=== PATIENT | male | born 1940 | race Caucasian/White ===

== ENCOUNTER 2018-08-15 16:44 | Emergency (ER) | payer OTHER ==
[2018-08-15] MEDS ORDERED: ONDANSETRON 4 MG/2 ML VIAL IVP ONE (17:06)
[2018-08-15] MEDS ORDERED: FAMOTIDINE 20 MG/NACL 50 ML IV ONE (17:06)
[2018-08-15] MEDS ORDERED: NS 1,000 ML IV ONE (17:06)
[2018-08-15] MEDS ORDERED: FAMOTIDINE 20 MG/2 ML SDV ONE (17:15)
--- NOTE | 2018-08-15 17:50 | EDPHY ---
H & P Time Seen by Provider: 08/15/18 17:06 HPI/ROS: HPI Lower abdominal pain, vomiting. 77-year-old male by private vehicle with daughter and his . The patient reports that since 11:00 a.m. He has had lower abdominal pain which she describes as greater on the right side, cramping and aching. He has had 2 episodes of nonbilious, nonbloody vomiting. He reports having a normal bowel movement earlier this morning. No bloody or melenic stool. No diarrhea. Last meal was earlier this morning at approximately 8:00 a.m.. No prior abdominal surgical history. He does have a history of coronary artery disease. He is also complaining of feeling very fatigued and drained. ROS: Constitutional: No fever, no chills. No weakness. Eyes: No discharge. No changes in vision. ENT: No sore throat. No nasal congestion or rhinorrhea. Respiratory: No cough. No shortness of breath. Cardiac: No chest pain, no palpitations. Gastrointestinal: As above, no diarrhea. Genitourinary: No hematuria. No dysuria or increased frequency with urination. Musculoskeletal: No back pain. No neck pain. No myalgias or arthralgias. Skin: No rashes. Neurological: No headache. No focal weakness or altered sensation. Past medical history: Type 2 diabetes, CABG, gout. Social history: Nonsmoker. Here with his and daughter. No alcohol. Physical Exam: General Appearance: Alert, he is not distressed. This patient is responding to questions appropriately and in full sentences. This patient appears well- hydrated and well-nourished. Eyes: Pupils equal and round no pallor or injection. No lid edema, erythema or injection. Respiratory: There are no retractions, lungs are clear to auscultation with good air movement bilaterally. Cardiovascular: Regular rate and rhythm. No murmur. Gastrointestinal: Abdomen is soft with mild to moderate right lower quadrant tenderness on palpation, no masses or hernias appreciated, bowel sounds normal. No focal tenderness at McBurney's point. No Vega sign. Neurological: Motor sensory function is grossly intact. Cranial nerves are normal. Gait is normal. Skin: Warm and dry, no rashes. Musculoskeletal: Neck is supple and nontender. Extremities are symmetrical. All joints range without pain or impingement. Psychiatric: No agitation. No depression. Database: EKG: EKG time is 5:50 p.m.; EKG shows a narrow complex normal sinus rhythm with a ventricular rate of 94. Borderline T-wave abnormalities in the anterior leads. Subtle ST depressions noted in V3 V4 and V5. The UT, QRS, QT intervals are within normal limits. There are no ST-T wave changes indicative of ischemic or injury pattern. No evidence of right heart strain. Interpreted by me. Imaging: CT abdomen and pelvis with IV contrast: The appendix is well visualized and is normal. The liver is unremarkable. The gallbladder appears normal. Unremarkable study. Results were discussed with staff radiologist Dr. Kraig Wallace. Right upper quadrant ultrasound: Gallstones and some sludge present but no evidence of wall thickening, inflammatory changes involving the gallbladder. No associated free fluid. Common bile duct within normal limits. Negative sonographic Vega's. Otherwise an unremarkable study. Results were discussed with staff radiologist. Procedures: Emergency department course: Triage vital signs reviewed. He is mildly hypertensive. Borderline tachycardic. Vital signs are otherwise normal. He is afebrile. IV was placed. He was started on IV normal saline with 1 L to be given over the next hour. He was initially given 4 mg of IV Zofran and 20 mg of IV Pepcid. He declines pain medication currently. His exam is concerning for possible appendicitis. He consents to CT imaging. 6:30 p.m., the patient was re-evaluated, he is currently resting comfortably. Results of his emergency department workup discussed with him. He will be sent for CT imaging shortly. 7:00 p.m., patient re-evaluated, he is comfortable at this time. Results of his CT imaging discussed with him and his family. Right upper quadrant ultrasound is pending. Vital signs reviewed. Heart rate 92. Blood pressure 131 /75. 8:25 p.m., the patient was re-evaluated. He remains comfortable. Repeat abdominal exam is soft, nontender nondistended. He has been tolerating oral fluids. Results of his ultrasound discussed with him and his family. He does feel comfortable going home at this time. He and his recently moved to [place]. He is asking for a new primary care physician as his previous 1, Dr. Germain Eugene, has retired. I will refer him to [facility] at the [facility]. Follow-up and return to emergency department precautions were thoroughly reviewed with him and his family. All of their questions were answered. He will be sent home with [place]. He was discharged in good condition with family. Differential Diagnosis: The differential diagnosis on this patient includes but is not limited to appendicitis, constipation, gastroenteritis. This represents a partial list of diagnoses considered. These considerations are based on history, physical exam , past history, reassessment and diagnostic testing. Smoking Status: Never smoked Constitutional: Initial Vital Signs Temperature (C) 37.8 C 08/15/18 16:52 Heart Rate 102 H 08/15/18 16:52 Respiratory Rate 16 08/15/18 16:52 Blood Pressure 143/68 H 08/15/18 16:52 O2 Sat (%) 91 L 08/15/18 16:52 O2 Delivery Mode Room Air Allergies/Adverse Reactions: No Known Allergies Allergy (Unverified 08/15/18 16:51) Home Medications: Medication Instructions Recorded Allopurinol 08/15/18 Aspirin 81mg (*) 08/15/18 Atorvastatin Calcium 08/15/18 Gabapentin 08/15/18 Glimepiride 08/15/18 Metformin HCl 08/15/18 Metoprolol Succinate 08/15/18 Ondansetron Odt [Zofran Odt 4 mg 4 mg PO Q4PRN PRN #10 tab 08/15/18 (*)] Plavix 08/15/18 Pramipexole ER 08/15/18 Medical Decision Making - Diagnostics Imaging Results: Imaging Impressions Abdomen/Pelvis CT 08/15/18 18:12 Impression: 1. Bilateral renal cysts and bilateral minimal nephrolithiasis, without obstructive uropathy. 2. Aortic atherosclerosis. 3. 14 mm left adrenal adenoma. 4. No CT evidence of acute appendicitis. - Data Points Laboratory Results: Laboratory Results 08/15/18 17:25 08/15/18 17:25 08/15/18 08/15/18 08/15/18 18:55 17:45 17:25 WBC RBC Hgb Hct MCV MCH MCHC RDW Plt Count MPV Neut % (Auto) Lymph % (Auto) [place] % (Auto) Eos % (Auto) Baso % (Auto) Nucleat RBC Rel Count Absolute Neuts (auto) Absolute Lymphs (auto) Absolute Monos (auto) Absolute Eos (auto) Absolute Basos (auto) Absolute Nucleated RBC Immature Gran % Immature Gran # Platelet Estimate Sodium Potassium Chloride Carbon Dioxide Anion Gap BUN Creatinine Estimated GFR Glucose Calcium Total Bilirubin Conjugated Bilirubin Unconjugated Bilirubin AST ALT Alkaline Phosphatase POC Troponin I 0.03 ng/mL ng/mL (0.00-0.08) Total Protein Albumin Lipase Urine Color JUVENCIO Urine Appearance CLEAR Urine pH 5.0 (5.0-7.5) Ur Specific [place] 1.018 (1.002-1.030) Urine Protein NEGATIVE (NEGATIVE) Urine Ketones NEGATIVE (NEGATIVE) Urine Blood NEGATIVE (NEGATIVE) Urine Nitrate NEGATIVE (NEGATIVE) Urine Bilirubin NEGATIVE (NEGATIVE) Urine Urobilinogen 4.0 EU H EU (0.2-1.0) Ur Leukocyte Esterase NEGATIVE (NEGATIVE) Urine RBC 1-3 /hpf /hpf (0-3) Urine WBC 1-3 /hpf /hpf (0-3) Ur Epithelial Cells NONE SEEN /lpf /lpf (NONE-1+) Urine Mucus TRACE /lpf /lpf (NONE-1+) Urine Glucose 1+ H (NEGATIVE) Hepatitis A IgM Ab Pending Hep Bs Antigen Pending Hep B Core IgM Ab Pending Hepatitis C Antibody Pending 08/15/18 08/15/18 17:25 17:25 WBC 7.19 10^3/uL 10^3/uL (3.80-9.50) RBC 3.98 10^6/uL L 10^6/uL (4.40-6.38) Hgb 13.6 g/dL L g/dL (13.7-17.5) Hct 40.3 % % (40.0-51.0) MCV 101.3 fL H fL (81.5-99.8) MCH 34.2 pg H pg (27.9-34.1) MCHC 33.7 g/dL g/dL (32.4-36.7) RDW 16.1 % H % (11.5-15.2) Plt Count 100 10^3/uL L 10^3/uL (150-400) MPV 13.3 fL H fL (8.7-11.7) Neut % (Auto) 86.2 % H % (39.3-74.2) Lymph % (Auto) 5.4 % L % (15.0-45.0) [place] % (Auto) 7.6 % % (4.5-13.0) Eos % (Auto) 0.0 % L % (0.6-7.6) Baso % (Auto) 0.1 % L % (0.3-1.7) Nucleat RBC Rel Count 0.0 % % (0.0-0.2) Absolute Neuts (auto) 6.20 10^3/uL 10^3/uL (1.70-6.50) Absolute Lymphs (auto) 0.39 10^3/uL L 10^3/uL (1.00-3.00) Absolute Monos (auto) 0.55 10^3/uL 10^3/uL (0.30-0.80) Absolute Eos (auto) 0.00 10^3/uL L 10^3/uL (0.03-0.40) Absolute Basos (auto) 0.01 10^3/uL L 10^3/uL (0.02-0.10) Absolute Nucleated RBC 0.00 10^3/uL 10^3/uL (0-0.01) Immature Gran % 0.7 % % (0.0-1.1) Immature Gran # 0.05 10^3/uL 10^3/uL (0.00-0.10) Platelet Estimate Not Reported Sodium 136 mEq/L mEq/L (135-145) Potassium 4.5 mEq/L mEq/L (3.5-5.2) Chloride 104 mEq/L mEq/L (97-110) Carbon Dioxide 21 mEq/l L mEq/l (22-31) Anion Gap 11 mEq/L mEq/L (6-14) BUN 34 mg/dL H mg/dL (7-23) Creatinine 1.6 mg/dL H mg/dL (0.7-1.3) Estimated GFR 42 Glucose 190 mg/dL H mg/dL (70-100) Calcium 9.3 mg/dL mg/dL (8.5-10.4) Total Bilirubin 3.1 mg/dL H mg/dL (0.1-1.4) Conjugated Bilirubin 2.0 mg/dL H mg/dL (0.0-0.5) Unconjugated Bilirubin 1.1 mg/dL mg/dL (0.0-1.1) AST 506 IU/L H IU/L (17-59) ALT 539 IU/L H IU/L (21-72) Alkaline Phosphatase 280 IU/L H IU/L (38-126) POC Troponin I Total Protein 6.8 g/dL g/dL (6.3-8.2) Albumin 4.3 g/dL g/dL (3.5-5.0) Lipase 195 IU/L IU/L (23-300) Urine Color Urine Appearance Urine pH Ur Specific [place] Urine Protein Urine Ketones Urine Blood Urine Nitrate Urine Bilirubin Urine Urobilinogen Ur Leukocyte Esterase Urine RBC Urine WBC Ur Epithelial Cells Urine Mucus Urine Glucose Hepatitis A IgM Ab Hep Bs Antigen Hep B Core IgM Ab Hepatitis C Antibody Medications Given: Discontinued Medications Sodium Chloride (Ns) 1,000 mls @ 0 mls/hr IV EDNOW ONE; Wide Open PRN Reason: Protocol Stop: 08/15/18 17:07 Last Admin: 08/15/18 17:24 Dose: 1,000 mls Famotidine/Sodium Chloride (Pepcid 20 Mg (Premix)) 50 mls @ 200 mls/hr IV EDNOW ONE Stop: 08/15/18 17:20 Last Admin: 08/15/18 17:25 Dose: 50 mls Sodium Chloride (Ns) 500 mls @ 0 mls/hr IV EDNOW ONE; Wide Open PRN Reason: Protocol Stop: 08/15/18 18:26 Last Admin: 08/15/18 18:30 Dose: 500 mls Ondansetron HCl (Zofran) 4 mg IVP EDNOW ONE Stop: 08/15/18 17:07 Last Admin: 08/15/18 17:24 Dose: 4 mg Ondansetron HCl (Zofran Odt 4 Mg Prepack#2) 1 btl TAKEHOME EDNOW ONE Stop: 08/15/18 20:31 Last Admin: 08/15/18 20:33 Dose: 1 btl Point of Care Test Results: Chemistry 08/15/18 17:45 POC Troponin I 0.03 ng/mL ng/mL (0.00-0.08) Departure - Departure Disposition: Home, Routine, Self-Care Clinical Impression: Abdominal pain, Vomiting, Gallstones Condition: Good Instructions: Ondansetron (By mouth), Gallstones (ED), Abdominal Pain (ED) Additional Instructions: Read and follow provided instructions. Stay well hydrated. Follow-up with [facility] to establish a new relationship with a primary care physician and for re-evaluation. Call their office tomorrow morning for follow-up early next week. Have your primary care physician review all results including CT study and ultrasound from your visit to the emergency department. Take medication as prescribed for nausea. You can take 1 sublingual tablet every 4 hr as needed for nausea. Most important, return to the emergency department for worsening symptoms, worsening abdominal pain, vomiting, fever, weakness or other serious concerns. Referrals: [facility] [Provider Group] - As per Instructions Prescriptions: Ondansetron Odt [Zofran Odt 4 mg (*)] 4 mg PO Q4PRN PRN #10 tab PRN Reason: For Nausea & Vomiting
[2018-08-15 18:12] LABS: PLATELET COUNT 100 10^3/uL (150-400)
[2018-08-15] MEDS ORDERED: NS 500 ML IV ONE (18:25)
[2018-08-15] MEDS ORDERED: ONDANSETRON 4MG PREPACK#2 BTL TAKEHOME ONE ×2 (20:29→20:30)
[2018-08-15 20:43] VITALS: BP 138/76
--- NOTE | 2018-08-15 20:58 | CPEKG ---
Test Reason : OPEN Blood Pressure : / mmHG Vent. Rate : 094 BPM Atrial Rate : 094 BPM P-R Int : 142 ms QRS Dur : 078 ms QT Int : 347 ms P-R-T Axes : 037 030 057 degrees QTc Int : 434 ms Sinus rhythm Abnormal R-wave progression, early transition Borderline T abnormalities, anterior leads Confirmed by Rogerio Tierney ([id number]) on 08/15/2018 8:57:34 PM Referred By: Rogerio Tierney Confirmed By:Rogerio Tierney
[2018-08-15 22:03] LABS: HEPATITIS B SURFACE ANTIGEN NEGATIVE (NEGATIVE); HEPATITIS C ANTIBODY TOTAL NEGATIVE (NEGATIVE)
[2018-08-15 23:06] LABS: HEPATITIS A ANTIBODY IGM (BCH) NEGATIVE (NEGATIVE); HEPATITIS B CORE AB IGM NEGATIVE (NEGATIVE)
--- NOTE | 2018-08-17 18:29 | CPEKG ---
Test Reason : OPEN Blood Pressure : / mmHG Vent. Rate : 094 BPM Atrial Rate : 094 BPM P-R Int : 142 ms QRS Dur : 078 ms QT Int : 347 ms P-R-T Axes : 037 030 057 degrees QTc Int : 434 ms Sinus rhythm Abnormal R-wave progression, early transition Borderline T abnormalities, anterior leads Confirmed by Rogerio Tierney ([id number]) on 08/17/2018 6:28:42 PM Referred By: Rogerio Tierney Confirmed By:Rogerio Tierney
== END 2018-08-15 20:43 | disposition home or self-care (01) ==
DX: R10.31 Right lower quadrant pain (principal); R11.10 Vomiting, unspecified; K80.20 Calculus of gallbladder without cholecystitis without obstruction; I25.10 Atherosclerotic heart disease of native coronary artery without angina pectoris; E11.9 Type 2 diabetes mellitus without complications; Z79.4 Long term (current) use of insulin; Z95.5 Presence of coronary angioplasty implant and graft
CPT/HCPCS: 74176; 76705; 93005; 96374; 96375; 99285; J2405; 84484-ER; G0472

== ENCOUNTER 2018-08-17 15:22 | Inpatient (IN) | payer OTHER ==
[2018-08-17] MEDS ORDERED: ONDANSETRON 4 MG/2 ML VIAL IVP ONE ×2 (15:43→18:11)
[2018-08-17] MEDS ORDERED: HYDROmorphONE/DILAUDID 2 MG/ML INJ IVP ONE ×3 (15:43→17:53)
[2018-08-17] MEDS ORDERED: NS 1,000 ML IV ONE ×2 (15:43→16:35)
--- NOTE | 2018-08-17 15:47 | EDPHY ---
H & P Time Seen by Provider: 08/17/18 15:31 HPI/ROS: CHIEF COMPLAINT: Abdominal pain HISTORY OF PRESENT ILLNESS: Patient was seen in our emergency department on 2 days ago for abdominal pain since 11:[address] scan and ultrasound showed gallstones but felt better and was discharged. He did well until today 1:30 p.m. When he developed recurrent epigastric pain below his ribs radiating to both the right and the left side, severe and 10/10 in character. Nausea but no vomiting. No diarrhea. No fever or chills. Does not feel like previous acute coronary syndrome. No injury or trauma. Not better worse with anything. REVIEW OF SYSTEMS: Eye: no change in vision ENT: no sore throat Cardiac: no chest pain or syncope Pulmonary: no cough or SOB Abdomen: HPI Musculoskeletal: no back pain Skin: no rash Neuro: no headache Constitutional: no fever : no urinary symptoms A comprehensive 10 point review of systems is otherwise negative aside from elements mentioned in the history of present illness. PAST MEDICAL HISTORY: Includes coronary bypass and stenting, diabetes, gout Social history: Nonsmoker General Appearance: Alert and conversant, cooperative. Eyes: No scleral icterus. ENT, Mouth: Normal mucous membranes. Respiratory: Normal respiratory effort, breath sounds equal, lungs are clear to auscultation. Cardiovascular: Regular rate and rhythm. Gastrointestinal: Epigastric and right upper quadrant tenderness without rebound or guarding. Neurological: Alert, face symmetric, normal motor and sensory in extremities. Skin: Warm and dry, no rashes. Musculoskeletal: No peripheral edema. Psychiatric: Not agitated. Emergency Department course/MDM: Patient presents with epigastric pain in the setting of known gallstones likely cholelithiasis, cholecystitis, or pancreatitis. Common bile duct obstruction also possible. Dilaudid 1 mg, Zofran 4 mg, normal saline 1 L IV, EKG, CBC chemistry LFT and lipase. Surgical consultation, Dr. Craig [id number]: Re-evaluated by Dr. Craig does not think acute surgical intervention indicated at this time for his gallbladder or otherwise. Re-evaluated, having recurrent pain, admission for further evaluation. Smoking Status: Never smoked Constitutional: Initial Vital Signs Temperature (C) 36.8 C 08/17/18 15:25 Heart Rate 73 08/17/18 15:25 Respiratory Rate 18 08/17/18 15:25 Blood Pressure 183/99 H 08/17/18 15:25 O2 Sat (%) 92 08/17/18 15:25 O2 Delivery Mode Room Air Allergies/Adverse Reactions: No Known Allergies Allergy (Verified 08/17/18 15:23) Home Medications: Medication Instructions Recorded Allopurinol 08/15/18 Aspirin 81mg (*) 08/15/18 Atorvastatin Calcium 08/15/18 Gabapentin 08/15/18 Glimepiride 08/15/18 Metformin HCl 08/15/18 Metoprolol Succinate 08/15/18 Ondansetron Odt [Zofran Odt 4 mg 4 mg PO Q4PRN PRN #10 tab 08/15/18 (*)] Plavix 08/15/18 Pramipexole ER 08/15/18 Medical Decision Making - Diagnostics EKG Interpretation: 12-lead EKG interpreted by me; official reading is in computer system. My interpretation is sinus rhythm without ischemic changes. Differential Diagnosis: Differential considered including but not limited to biliary colic, cholecystitis, pancreatitis, peptic ulcer disease, acute coronary syndrome, vascular aneurysm or dissection. Consult/Admit Bed Type: [place] [id number] - Data Points Laboratory Results: Laboratory Results 08/17/18 15:37 08/17/18 15:37 08/17/18 08/17/18 15:37 15:37 WBC 5.08 10^3/uL 10^3/uL (3.80-9.50) RBC 3.72 10^6/uL L 10^6/uL (4.40-6.38) Hgb 12.9 g/dL L g/dL (13.7-17.5) Hct 39.7 % L % (40.0-51.0) MCV 106.7 fL H fL (81.5-99.8) MCH 34.7 pg H pg (27.9-34.1) MCHC 32.5 g/dL g/dL (32.4-36.7) RDW 16.1 % H % (11.5-15.2) Plt Count 109 10^3/uL L 10^3/uL (150-400) MPV 13.0 fL H fL (8.7-11.7) Neut % (Auto) 74.0 % % (39.3-74.2) Lymph % (Auto) 17.1 % % (15.0-45.0) [place] % (Auto) 7.3 % % (4.5-13.0) Eos % (Auto) 0.6 % % (0.6-7.6) Baso % (Auto) 0.4 % % (0.3-1.7) Nucleat RBC Rel Count 0.0 % % (0.0-0.2) Absolute Neuts (auto) 3.76 10^3/uL 10^3/uL (1.70-6.50) Absolute Lymphs (auto) 0.87 10^3/uL L 10^3/uL (1.00-3.00) Absolute Monos (auto) 0.37 10^3/uL 10^3/uL (0.30-0.80) Absolute Eos (auto) 0.03 10^3/uL 10^3/uL (0.03-0.40) Absolute Basos (auto) 0.02 10^3/uL 10^3/uL (0.02-0.10) Absolute Nucleated RBC 0.00 10^3/uL 10^3/uL (0-0.01) Immature Gran % 0.6 % % (0.0-1.1) Immature Gran # 0.03 10^3/uL 10^3/uL (0.00-0.10) Sodium 139 mEq/L mEq/L (135-145) Potassium 4.6 mEq/L mEq/L (3.5-5.2) Chloride 104 mEq/L mEq/L (97-110) Carbon Dioxide 23 mEq/l mEq/l (22-31) Anion Gap 12 mEq/L mEq/L (6-14) BUN 28 mg/dL H mg/dL (7-23) Creatinine 1.4 mg/dL H mg/dL (0.7-1.3) Estimated GFR 49 Glucose 206 mg/dL H mg/dL (70-100) Calcium 8.9 mg/dL mg/dL (8.5-10.4) Total Bilirubin 0.9 mg/dL mg/dL (0.1-1.4) Conjugated Bilirubin 0.6 mg/dL H mg/dL (0.0-0.5) Unconjugated Bilirubin 0.3 mg/dL mg/dL (0.0-1.1) AST 68 IU/L H IU/L (17-59) ALT 277 IU/L H IU/L (21-72) Alkaline Phosphatase 204 IU/L H IU/L (38-126) Total Protein 6.5 g/dL g/dL (6.3-8.2) Albumin 4.1 g/dL g/dL (3.5-5.0) Lipase 276 IU/L IU/L (23-300) Medications Given: Discontinued Medications Hydromorphone HCl (Dilaudid) 1 mg IVP EDNOW ONE Stop: 08/17/18 15:44 Last Admin: 08/17/18 15:52 Dose: 1 mg Sodium Chloride (Ns) 1,000 mls @ 0 mls/hr IV EDNOW ONE; Wide Open PRN Reason: Protocol Stop: 08/17/18 15:44 Last Admin: 08/17/18 15:52 Dose: 1,000 mls Sodium Chloride (Ns) 1,000 mls @ 0 mls/hr IV EDNOW ONE; Wide Open PRN Reason: Protocol Stop: 08/17/18 16:36 Last Admin: 08/17/18 17:20 Dose: 1,000 mls Ondansetron HCl (Zofran) 4 mg IVP EDNOW ONE Stop: 08/17/18 15:44 Last Admin: 08/17/18 15:53 Dose: 4 mg Departure - Departure Disposition: [facility] Inpatient Acute Clinical Impression: Abdominal pain Qualifiers: Abdominal location: epigastric Qualified Code(s): R10.13 - Epigastric pain Condition: Good Referrals: NONE *PRIMARY CARE P,. [Primary Care Provider] - As per Instructions
[2018-08-17 15:54] LABS: PLATELET COUNT 109 10^3/uL (150-400)
--- NOTE | 2018-08-17 15:54 | CPEKG ---
Test Reason : OPEN Blood Pressure : / mmHG Vent. Rate : 066 BPM Atrial Rate : 066 BPM P-R Int : 181 ms QRS Dur : 092 ms QT Int : 402 ms P-R-T Axes : -09 037 047 degrees QTc Int : 422 ms Sinus rhythm Borderline T abnormalities, anterior leads Confirmed by Anita Wilkinson ([id number]) on 08/17/2018 3:54:07 PM Referred By: ANITA WILKINSON Confirmed By:Anita Wilkinson
[2018-08-17] MEDS ORDERED: ACETAMINOPHEN 325 MG TAB PO PRN (18:32)
[2018-08-17] MEDS ORDERED: ONDANSETRON 4 MG/2 ML VIAL IVP PRN (18:32)
[2018-08-17] MEDS ORDERED: ONDANSETRON DISINTEGRATING 4 MG TAB PO PRN (18:32)
[2018-08-17] MEDS ORDERED: oxyCODONE IR 5 MG TAB PO PRN (18:32)
[2018-08-17] MEDS ORDERED: PROMETHAZINE HCL 25 MG/ML INJ IVP PRN (18:32)
[2018-08-17] MEDS ORDERED: HYDROCODONE/APAP 5/325 TAB PO PRN (18:32)
[2018-08-17] MEDS ORDERED: D50W 25 GM/50 ML SYR IVP PRN (18:39)
[2018-08-17] MEDS: BACITRACIN OINTMENT 1 PACKET TP SCH (19:16)
--- NOTE | 2018-08-17 21:29 | PDGENHP ---
History and Physical - Chief Complaint abdominal pain - History of Present Illness 77 yo M with PMH of CAD s/p CABG, DM2, presenting with complaints of abdominal pain recurring today after first presenting with it on . He notes that the symptoms began initially on with severe RUQ pain associated with nausea and vomiting. He was seen in the ER and was noted to have elevated LFTs and an abdominal CT with gallstones but no clear e/o cholecystitis and an abd CT w/o contrast that did not show any etiology for his pain. He actually improved at that time and was discharged home, he states that all day yesterday he felt quite well. Today he was feeling fine until around lunch time when around 1 hour after eating lunch he again developed severe right upper quadrant pain associated with nausea. He denies any fevers or chills, has not had chest pain or sob, no urinary sxs. He had normal BM yesterday morning but none so far today. He has not eaten since lunch due to the pain but currently feels hungry. He was seen by Dr. Craig in the ER who evaluated his films and the patient and did not feel that this was likely due to acute cholecystitis and did not feel this warrants cholecystectomy at this point. It was noted that his LFTs have improved since he was here last. Patient had improvement in his pain with IV dilaudid, but pain recurred and he did not feel comfortable going home. History Information - Allergies/Home Medication List Allergies/Adverse Reactions: No Known Allergies Allergy (Verified 08/17/18 15:23) Home Medications: Allopurinol [Allopurinol 100 MG (*)] 200 mg PO DAILY 08/17/18 [Last Taken ] Aspirin EC [Aspirin EC 81 mg (*)] 81 mg PO DAILY 08/17/18 [Last Taken 08/17/18] Atorvastatin Calcium [Lipitor 20 mg (*)] 20 mg PO MOWEFR@1800 08/17/18 [Last Taken 08/16/18] Clopidogrel Bisulfate [Clopidogrel] 75 mg PO DAILY 08/17/18 [Last Taken 08:00] Gabapentin [Neurontin 300 MG (*)] 600 mg PO BID 08/17/18 [Last Taken 08/17/18 08 :00] Glimepiride [Amaryl 2 MG (*)] 2 mg PO DAILY 08/17/18 [Last Taken 08/10/18] Metoprolol Succinate [Metoprolol Succinate] 12.5 mg PO DAILY 08/17/18 [Last Taken 08/17/18] Pramipexole Di-HCl [Mirapex 0.125 mg (*)] 0.125 mg PO BID 08/17/18 [Last Taken 08/17/18 08:00] metFORMIN HCL [Metformin HCl] 500 mg PO BIDMEAL 08/17/18 [Last Taken 08/17/18 08 :00] I have personally reviewed and updated: family history, medical history, social history, surgical history - Past Medical History coronary artery disease, diabetes type 2, hypertension, hyperlipidemia Additional medical history: QUIANA. kidney stones. peripheral neuropathy. Restless leg syndrome - Surgical History Reports: coronary bypass surgery Additional surgical history: Bilateral TKA. parathyroidectomy - Family History Positive for: non-pertinent - Social History Smoking Status: Never smoked Alcohol Use: Rarely Drug Use: None Additional social history: , here with and daughter Review of Systems Review of Systems: ROS: 10pt was reviewed & negative except for what was stated in HPI & below Physical Exam Physical Exam: Temp Pulse Resp BP Pulse Ox 36.7 C 68 17 178/91 H 94 08/17/18 21:04 08/17/18 21:04 08/17/18 21:04 08/17/18 21:04 08/17/18 21:04 Constitutional: appears nourished, uncomfortable Eyes: PERRL, anicteric sclera Ears, Nose, Mouth, Throat: moist mucous membranes, hearing normal Cardiovascular: regular rate and rhythym, no murmur, rub, or gallop, No edema Respiratory: no respiratory distress, no rales or rhonchi Gastrointestinal: normoactive bowel sounds, tenderness (RUQ TTP), No guarding, No rebound Genitourinary: no bladder fullness Skin: warm, normal color Musculoskeletal: full muscle strength Neurologic: AAOx3 Psychiatric: interacting appropriately, not anxious, not encephalopathic Lab Data & Imaging Review 08/17/18 15:37 08/17/18 15:37 WBC 5.08 10^3/uL (3.80-9.50) 08/17/18 15:37 RBC 3.72 10^6/uL (4.40-6.38) L 08/17/18 15:37 Hgb 12.9 g/dL (13.7-17.5) L 08/17/18 15:37 Hct 39.7 % (40.0-51.0) L 08/17/18 15:37 MCV 106.7 fL (81.5-99.8) H 08/17/18 15:37 MCH 34.7 pg (27.9-34.1) H 08/17/18 15:37 MCHC 32.5 g/dL (32.4-36.7) 08/17/18 15:37 RDW 16.1 % (11.5-15.2) H 08/17/18 15:37 Plt Count 109 10^3/uL (150-400) L 08/17/18 15:37 MPV 13.0 fL (8.7-11.7) H 08/17/18 15:37 Neut % (Auto) 74.0 % (39.3-74.2) 08/17/18 15:37 Lymph % (Auto) 17.1 % (15.0-45.0) 08/17/18 15:37 [place] % (Auto) 7.3 % (4.5-13.0) 08/17/18 15:37 Eos % (Auto) 0.6 % (0.6-7.6) 08/17/18 15:37 Baso % (Auto) 0.4 % (0.3-1.7) 08/17/18 15:37 Nucleat RBC Rel Count 0.0 % (0.0-0.2) 08/17/18 15:37 Absolute Neuts (auto) 3.76 10^3/uL (1.70-6.50) 08/17/18 15:37 Absolute Lymphs (auto) 0.87 10^3/uL (1.00-3.00) L 08/17/18 15:37 Absolute Monos (auto) 0.37 10^3/uL (0.30-0.80) 08/17/18 15:37 Absolute Eos (auto) 0.03 10^3/uL (0.03-0.40) 08/17/18 15:37 Absolute Basos (auto) 0.02 10^3/uL (0.02-0.10) 08/17/18 15:37 Absolute Nucleated RBC 0.00 10^3/uL (0-0.01) 08/17/18 15:37 Immature Gran % 0.6 % (0.0-1.1) 08/17/18 15:37 Immature Gran # 0.03 10^3/uL (0.00-0.10) 08/17/18 15:37 Sodium 139 mEq/L (135-145) 08/17/18 15:37 Potassium 4.6 mEq/L (3.5-5.2) 08/17/18 15:37 Chloride 104 mEq/L (97-110) 08/17/18 15:37 Carbon Dioxide 23 mEq/l (22-31) 08/17/18 15:37 Anion Gap 12 mEq/L (6-14) 08/17/18 15:37 BUN 28 mg/dL (7-23) H 08/17/18 15:37 Creatinine 1.4 mg/dL (0.7-1.3) H 08/17/18 15:37 Estimated GFR 49 08/17/18 15:37 Glucose 206 mg/dL (70-100) H 08/17/18 15:37 POC Glucose 199 mg/dL (70-100) H 08/17/18 19:49 Calcium 8.9 mg/dL (8.5-10.4) 08/17/18 15:37 Total Bilirubin 0.9 mg/dL (0.1-1.4) 08/17/18 15:37 Conjugated Bilirubin 0.6 mg/dL (0.0-0.5) H 08/17/18 15:37 Unconjugated Bilirubin 0.3 mg/dL (0.0-1.1) 08/17/18 15:37 AST 68 IU/L (17-59) H 08/17/18 15:37 ALT 277 IU/L (21-72) H 08/17/18 15:37 Alkaline Phosphatase 204 IU/L (38-126) H 08/17/18 15:37 Troponin I < 0.012 ng/mL (0.000-0.034) 08/17/18 18:44 Total Protein 6.5 g/dL (6.3-8.2) 08/17/18 15:37 Albumin 4.1 g/dL (3.5-5.0) 08/17/18 15:37 Lipase 276 IU/L (23-300) 08/17/18 15:37 Visualized and Interpreted imaging results: Yes Interpretation: abd CT: cholelithiasis without clear cholecystitis, renal stones Visualized and Interpreted EKG results: Yes EKG Interpretation: Positive for: normal sinsus rhythm EKG additional interpertation: twave flattening anterior--no change from prior Assessment & Plan Assessment: Abdominal pain (Acute) 77 yo M pw RUQ pain and elevated LFTs w/cholelithiasis without clear cholecystitis # biliary colic: LFTs improved from prior and pain initially resolved but now back. General surgery consulted and does not feel surgery indicated at this time , given improvement in LFTs, choledocholithiasis unlikely unless stone moved on it's own. Will plan to monitor sxs, trend LFTs, HIDA scan in am. If LFTs increasing in am will need to consult GI. Consider CT a/p with contrast for further evaluation if pain not improving as well. # abdominal pain: as above, but considered other etiologies for abdominal pain including anginal equivalent given strong hx of CAD--trending trops/monitoring on tele, ecg without change, ischemic bowel--checking lactate and consider CT w/ contrast as above, gastritis--will start PPI. Continue prn dilaudid/oxycodone # CAD: w/ hx of CABG and stents in past, followed by [facility], last angio in 2014 with residual stenosis not intervened on and continued on medical management, as above w/u for pain being anginal equivalent but initial trop negative 8 hours after sxs began and ecg without change. Cont op meds, holding asa/plavix for now in case surgery needed # DM2: followed by endocrinology, recent A1c of 7.2, holding oral hypoglycemics as patient not taking po, will start SSI # chronic medical issues: RLS, QUIANA, peripheral neuropathy FC # observation status patient new to my care. Old records reviewed and summarized as above. Care plan reviewed with ER doctor as above. Further hx obtained from patients family present at bedside.
[2018-08-17] MEDS: HYDROmorphONE/DILAUDID 1 MG/ML INJ IVP PRN (22:07)
[2018-08-17] MEDS: GABAPENTIN 300 MG CAP PO SCH (22:08)
[2018-08-17] MEDS: PRAMIPEXOLE 0.125 MG TAB PO SCH (22:09)
[2018-08-17] MEDS: PANTOPRAZOLE SODIUM 40 MG TAB PO SCH (22:34)
[2018-08-17] MEDS: NS 1,000 ML IV SCH (22:35)
[2018-08-17] MEDS: hydrALAZINE 20 MG/ML VIAL IVP PRN (23:03)
--- NOTE | 2018-08-18 03:18 | GCON ---
[f rep st] CONSULTATION REFERRING PHYSICIAN: Bo Calero MD REASON FOR CONSULTATION: Possible biliary process. HISTORY OF PRESENT ILLNESS: The patient is a 77-year-old male who was in his usual state of good health until August 15, when he had an episode of abdominal pain and came to the emergency department. At that time, he was found to have a nondistended gallbladder with several small stones and no wall thickening. His pain had been going on for 6 hours. His bilirubin was 3.1. His AST was 506 , his ALT was 539, his alkaline phosphatase was 280, and his lipase was 195. His white count was 7000. He became pain-free and was sent home to follow up with his family physician. He did well on August 16. Today at (August 17) at 12:30 he had lunch. At 1:30, he started with first lower abdominal pain, which then became epigastric in location. It was described as constant. Lying was the worst position for him but he found sitting or standing helped. He had no nausea or vomiting today. He is not hungry at this time. He presented to the emergency room for re- evaluation. SOCIAL HISTORY: He is a nonsmoker. He does not drink. ALLERGIES: He has no known drug allergies. MEDICATIONS: He gets his glimepiride by mail. He has not been able to take that for the last 5-6 days. He normally takes 2 mg a day. He also takes metformin 500 mg in the morning. He takes metoprolol 25 mg twice a day, and aspirin 81 mg a day. Atorvastatin 20 mg daily. He takes allopurinol 100 mg twice a day, and gabapentin 100 mg twice a day. Uses plastic Plavix 75 mg a day , and for restless legs he takes pramipexole 0.125 mg daily. SURGICAL HISTORY: He has had his tonsils removed. Ten years ago he had 1 parathyroid gland removed. He has had bilateral knee replacements. Approximately 8 years ago he had a triple bypass, and several months later did have a heart attack and had a stent placement. He had a colonoscopy 1 year ago. There is no history of rheumatic fever, tuberculosis, or hepatitis. Note is made that he had a bleeding issue and required a transfusion of 14 units with his open heart surgery. PAST MEDICAL HISTORY: Again, he did not have a myocardial infarction prior to his CABG but he did prior to his stent placement. It was judged is minor. He wears lenses for reading. Bilateral cataract extraction. He wears lenses for reading. He does complain of dry eye. His hearing is diminished by 30% on the right. He does wear hearing aids. He has dental crowns. He has had kidney stones twice in the past. He can do 1 flight of stairs. PHYSICAL EXAMINATION: GENERAL: He is awake, alert, pleasant, and not in distress. He is seen lying in the gurney in room 14. NEUROLOGIC: He is pleasant, communicative. He is oriented x3. Last coma Scale is 15. Skull is normocephalic and atraumatic. Cranial nerves are intact. There are no focal or lateralizing neurologic findings. NECK: Supple, nontender. I do not appreciate any thyroid masses. LUNGS: Clear to auscultation. CARDIAC: S1, S2 to be normal, without murmurs, rubs, or gallops. ABDOMEN: Distended. He is nontender with cough. He is tender on a 1/10 to palpation in all quadrants and specifically, he does not have a Vega sign. His abdomen is distended and slightly tympanitic. EXTREMITIES: Otherwise unremarkable. DATA REVIEWED: Today, is white count is 5000, down from 7. He does have relative renal failure, which is known. His GFR is 49, BUN is 28, creatinine is 1.4. His glucose is 206. His bilirubin has dropped from 3.1 to 0.9. His AST has dropped from 506 to 68. His ALT has dropped from 539 to 277. His alkaline phosphatase has dropped from 280 to 204. His lipase has gone up slightly from 95 to 276. In reviewing his studies, the ultrasound showed several small stones and sludge. There is no thickening of the gallbladder wall identified, and no more Vega's sign was noted on the prior examination. His CT scan does show bilateral renal cysts. Note is made he does have a 14 mm left adrenal mass. Hepatitis screen done on the was negative. Certainly, he is on several medications, which could lead to a hepatitis like picture, and they include Plavix, allopurinol, Lipitor, and metformin. IMPRESSION: Patient with improving biliary picture, but without a Vega sign. I do not feel this represents an acute cholecystitis, though he does have cholelithiasis. I doubt that this is medication related though, that is a possibility. I do think there is a possibility that he may have a viral process , which is resolving. His normal lipase makes the possibility of passing stones less likely, and again, his pain picture on presentation is not consistent with either acute cholecystitis or choledochal lithiasis. /[id number]/MODL MTDD
[2018-08-18] MEDS ORDERED: LORazepam 2 MG/ML INJ IVP PRN (03:20)
[2018-08-18 05:11] LABS: PLATELET COUNT 101 10^3/uL (150-400)
[2018-08-18] MEDS: NS 1,000 ML IV SCH (06:10)
[2018-08-18] MEDS ORDERED: PROMETHAZINE HCL 25 MG/ML INJ IVP ONE (06:20)
[2018-08-18] MEDS: hydrALAZINE 20 MG/ML VIAL IVP PRN (07:58)
[2018-08-18] MEDS: INSULIN LISPRO 100 UNIT/ML SC SCH ×3 (08:00→17:48)
[2018-08-18] MEDS ORDERED: METOPROLOL SUCCINATE XR 25 MG TAB PO SCH (09:00)
--- NOTE | 2018-08-18 09:49 | ASMTCMCOM ---
CM Note CM Note Notes: Patient admitted via ED with abdominal pain. History significant for CAD and DM. No clear needs identifed at this time. Cm to follow for needs. Plan: TBD Date Signed: 08/18/2018 09:48 AM Electronically Signed By:Skye Fay RN
--- NOTE | 2018-08-18 10:58 | HOSPPROG ---
Hospitalist Progress Note Assessment/Plan: 77 yo M pw RUQ pain and elevated LFTs w/cholelithiasis without clear cholecystitis # biliary colic: LFTs improved from prior and pain initially resolved but now back. General surgery consulted and does not feel surgery indicated at this time , given improvement in LFTs, choledocholithiasis unlikely unless stone moved on it's own. - LFTs continue to downtrend this AM, AST 39, ALT 206, Alk Phos 172, T bili 1.1 this AM - Plan for HIDA scan this am, consult GI pending results - Consider repeat CT a/p with contrast for further evaluation if pain not improving as well. # CAD: w/ hx of CABG and stents in past, followed by [facility], last angio in 2014 with residual stenosis not intervened on and continued on medical management - RUQ abdominal pain may be anginal equivalent with Trop elevation overnight from normal to 0.046 -> 0.05 this AM - Consulted Cardiology this morning for further evaluation of troponin elevation in setting of cardiac hx -Cont op meds, was holding asa/plavix, will restart in setting of troponin elevation # DM2: followed by endocrinology, recent A1c of 7.2, holding oral hypoglycemics as patient not taking po, continue SSI # chronic medical issues: RLS, QUIANA, peripheral neuropathy FEN: NPO for HIDA this AM DVT PPx: SCDs Code: FULL Dispo: Pending clinical course Objective: Vital Signs Temp Pulse Resp BP Pulse Ox 37.4 C 87 19 170/89 H 97 08/18/18 08:00 08/18/18 08:00 08/18/18 08:00 08/18/18 08:00 08/18/18 08:00 Laboratory Results 08/18/18 04:50 08/18/18 04:50 08/17/18 08/18/18 08/19/18 05:59 05:59 05:59 Intake Total 2400 925 Output Total 1000 500 Balance 1400 425 ICD10 Worksheet Patient Problems: Problems Problem Status Onset Abdominal pain Acute
[2018-08-18] MEDS: GABAPENTIN 300 MG CAP PO SCH ×2 (12:10→22:00)
[2018-08-18] MEDS: PANTOPRAZOLE SODIUM 40 MG TAB PO SCH ×2 (12:11→22:00)
[2018-08-18] MEDS: PRAMIPEXOLE 0.125 MG TAB PO SCH ×2 (12:11→23:51)
[2018-08-18] MEDS: ALLOPURINOL 100 MG TAB PO SCH (12:12)
[2018-08-18] MEDS: BACITRACIN OINTMENT 1 PACKET TP SCH ×2 (12:16→22:00)
--- NOTE | 2018-08-18 12:21 | SOAPPROG ---
[facility] Progress Note Assessment/Plan: Assessment: Cardiology consultation performed and dictated. 77 y/o man with following cardiac and medical issues: --DM --CAD s/p CABG x 3V in 2005 --peripheral neuropathy --gallstones --nephrolithiasis Echo 01/21 showed LVEF 63%, mild diastolic dysfunction with trivial MR and TR. Last cardiac cath 02/21 showed 50% left main lesions, patient BRADY to LAD, 20% RCA lesions and diffusely disease lower brule LCX. SVGs to OM1 and OM3 were occluded. ETT cardiolite stress test 05/27 exercised 6:30 minutes with LVEF 59% and mild inferior-lateral ischemia. He does not exercise much or get off the couch much. RESENDEZ at 1-2 blocks. Denies CP like before his CABG. Denies palpitations or PND. For last 3-4 days he has been having abdominal pain. ECG here with new T wave inversions V2-V3 and troponin borderline at 0.05. He does not feel well with his abdomen but not chest hurting. IMP: 1)I think he is probably having demand cardiac ischemia with mild troponin leak from his possible cholycystitis with his not completely revascularized LCX distribution. 2)His new TWI anterior-septal could be related to GI process or his BRAYD could be jeopardized. no signs of CHF or pulmonary edema. REC: 1)stop Toprol XL 2)start Metoprolol tartrate 25mg PO q8hrs 3)start Imdur 30mg PO qam. 4)stop Plavix as might need abdominal surgery. 5)ECG in am 6)echo in AM 7)lexiscan cardiolite stress test in AM more to make sure no new anterior ischemia. Suspect he will have some inferior-lateral ischemia. 8)once those tests back, can better assess his risk for choly surgery if needed. 9)check CPK and troponin in AM (5.13). Thanks. Will follow with you. 08/18/18 12:12 Objective: Vital Signs Temp Pulse Resp BP Pulse Ox 37.4 C 87 19 170/89 H 97 08/18/18 08:00 08/18/18 08:00 08/18/18 08:00 08/18/18 08:00 08/18/18 08:00 Laboratory Results 08/18/18 04:50 08/18/18 04:50 08/17/18 08/18/18 08/19/18 05:59 05:59 05:59 Intake Total 2400 925 Output Total 1000 500 Balance 1400 425 ICD10 Worksheet Patient Problems: Problems Problem Status Onset Abdominal pain Acute
[2018-08-18] MEDS: METOPROLOL TARTRATE 25 MG TAB PO SCH ×3 (12:36→22:05)
[2018-08-18] MEDS: ISOSORBIDE MONONITRATE 30 MG TAB.SR PO SCH (12:36)
--- NOTE | 2018-08-18 13:38 | PDMN ---
Medical Necessity Medical necessity: Pt meets inpt criteria per MD order and MCG [id number], Gallbladder or Bile Duct Inflammation or Stone, A-2 days, inpt adm indicated for : acute cholecystitis as indicated by: right upper quadrant pain and systemic signs of inflammation as indicated by fever (last 99.3). 77 y/o w/RUQ pain, nausea, and elevated LFT's admitted w/cholelithiasis, hepatobiliary scan today shows findings consistent w/acute cholecystitis, hypertensive w/BP's 160's- 180' s since admit, also elevated troponins, cardiology consult, plan for stress test in AM, hx CAD w/CABG and stents in past, other chronic med issues include DM2, RLS, QUIANA, and periph neuropathy. Est LOS>2MN for further eval/management of above.
--- NOTE | 2018-08-18 14:25 | ASMTCMCOM ---
CM Note CM Note Notes: Chart reviewed fir discharge planning purposes. Currently undergoing cardiac workup. Acute cholycystitis workup. CM to follow for needs. Plan: TBD Date Signed: 08/18/2018 02:24 PM Electronically Signed By:Skye Fay RN
[2018-08-18] MEDS: PIPERACILLIN/TAZO 3.375 GM/DEX 50 ML IV SCH ×2 (14:43→19:45)
[2018-08-18] MEDS ORDERED: NS 3,000 ML IV ONE (16:16)
[2018-08-18] MEDS: ACETAMINOPHEN 500 MG TAB PO SCH ×2 (17:14→23:41)
--- NOTE | 2018-08-18 17:18 | SOAPPROG ---
SOAP Progress Note Assessment/Plan: 08/18/18 17:01 PAD#1 Assessment: TEMP up, Patient lethargic. Troponin rising! GFR and creatinine both improving. Biliary evaluation: GB non vis on HIDA but nuclide did promptly reach the duodenum. Sono shows a moderately distended GB with "wall thickening" without hyperemia. Sonographic Vega's sign negative. Bilirubin, AST, ALT all improving. Since GB only moderately distended, not hyperemic with resolving labs and negative Vega's sign on both sono and exam, it is harder to implicate the GB as source of pathology. Looking at non-biliary sources of changes now as well. Plan: Zosyn started CXR Get lipase and lactate Follow labs Consider transfer to higher level unit Hold NPO Stress test planned for tomorrow Will continue to re-assess with you. Subjective: My abdomen does not hurt Objective: Vital Signs Temp Pulse Resp BP Pulse Ox 39.2 C H 102 H 18 142/83 H 91 L 08/18/18 15:02 08/18/18 15:02 08/18/18 15:02 08/18/18 15:02 08/18/18 15:02 Laboratory Results 08/18/18 04:50 08/18/18 04:50 08/17/18 08/18/18 08/19/18 05:59 05:59 05:59 Intake Total 2400 1499 Output Total 1000 500 Balance 1400 999 - Time Spent With Patient Time Spent With Patient: 25 - Pending Discharge Pending Discharge Within 24 Hours: No Pending Discharge Within 48 Hours: No Physical Exam - Physical Exam General Appearance: WD/WN, no apparent distress, other (lethargic but cooperative) Neck: non-tender, full range of motion, supple Respiratory: chest non-tender, lungs clear, normal breath sounds, other (no E to A changes appreciated) Cardiac/Chest: regular rate, rhythm Abdomen: non-tender, soft, other (Bowel sounds are hypoactive but present) Male Genitalia: deferred Rectal: deferred Back: Normal inspection Skin: normal color, warm/dry Extremities: normal range of motion, non-tender Neuro/Psych: no motor/sensory deficits, alert, normal mood/affect, oriented x 3 ICD10 Worksheet Patient Problems: Problems Problem Status Onset Abdominal pain Acute
--- NOTE | 2018-08-18 18:48 | HOSPPROG ---
Hospitalist Progress Note Assessment/Plan: Cross cover note: Called by nursing to evaluate patient--familiar with his care from prior evening admission --reviewed records since then including rounding note, progress note from surgery, cardiology consult. LFTs remain elevated but still improved from original imaging--abd US and HIDA scan reviewed, both consistent with cholecystitis. Patient febrile for several hours and in discussion with nurse and family present at bedside mental status has been poor all day--very somnolent, difficult to arouse. BP now in 90's/70s, patient denies pain but still with RUQ tenderness. Discussed with family that patient is having evidence of severe sepsis at this point with new mental status change, elevated trop as evidence of end organ dysfunction. Called GI and requested consultation, though with improving LFTs choledocholithiasis not likely and unlikely patient would benefit from ERCP, however may help in clarifying diagnosis. Plan: transfer to SDU --continue zosyn, blood cultures with ngtd --GI to consult in am --if patient continues to decline, will need to discuss further with surgery to determine timing of surgical intervention --likely defer stress test until patient is more stable given that this is not a primary cardiac issue (minor bump in troponin without any uptrending and no significant ecg changes) > 45 min critical care time spent in eval/mgmt of above, review of records, discussion with GI/family and nursing Objective: Vital Signs Temp Pulse Resp BP Pulse Ox 37 C 93 22 H 96/57 L 94 08/18/18 18:12 08/18/18 18:12 08/18/18 18:12 08/18/18 18:12 08/18/18 18:12 Laboratory Results 08/18/18 04:50 08/18/18 04:50 08/17/18 08/18/18 08/19/18 05:59 05:59 05:59 Intake Total 2400 3249 Output Total 1000 500 Balance 1400 2749 ICD10 Worksheet Patient Problems: Problems Problem Status Onset Abdominal pain Acute
[2018-08-18] MEDS ORDERED: NS 1,000 ML IV ONE (20:56)
[2018-08-18] MEDS ORDERED: IOPAMIDOL (ISOVUE-300) 100 ML BTL ONE (21:10)
[2018-08-18 22:05] LABS: PLATELET COUNT 90 10^3/uL (150-400)
--- NOTE | 2018-08-18 22:36 | SOAPPROG ---
SOAP Progress Note Assessment/Plan: 08/18/18 17:01 PAD#1 Assessment: TEMP up, Patient lethargic. Troponin rising! GFR and creatinine both improving. Biliary evaluation: GB non vis on HIDA but nuclide did promptly reach the duodenum. Sono shows a moderately distended GB with "wall thickening" without hyperemia. Sonographic Vega's sign negative. Bilirubin, AST, ALT all improving. Since GB only moderately distended, not hyperemic with resolving labs and negative Vega's sign on both sono and exam, it is harder to implicate the GB as source of pathology. Looking at non-biliary sources of changes now as well. Plan: Zosyn started CXR Get lipase and lactate Follow labs Consider transfer to higher level unit Hold NPO Stress test planned for tomorrow Will continue to re-assess with you. 08/18/18 22:33 update: Patient moved to ICU for sepsis Lipase normal. CXR unremarkable F/u CT is consistent with acute cholecystitis. He now has a mildly positive Vega's sign. Awaiting LFT and troponin results. May recommend IR placed cholecystotomy tube as cardiac issues yet to be sorted out. Note WBC up to 13K, glucose stable. Temp down. VSS. He is now more responsive than earlier. Plan: Cardiac Evaluation Cholecystotomy tube as temporizing measure in AM continue to stabilize Subjective: notes mild abdominal pain Objective: Vital Signs Temp Pulse Resp BP Pulse Ox 37.3 C 77 21 H 106/45 L 95 08/18/18 20:00 08/18/18 22:00 08/18/18 22:00 08/18/18 22:00 08/18/18 22:00 Laboratory Results 08/18/18 21:55 08/18/18 21:55 08/17/18 08/18/18 08/19/18 05:59 05:59 05:59 Intake Total 2400 3756 Output Total 1000 750 Balance 1400 7039 - Time Spent With Patient Time Spent With Patient: 25 Physical Exam - Physical Exam General Appearance: WD/WN, alert, mild distress Abdomen: non-tender, soft, distended, other (mildly positive vega's sign) ICD10 Worksheet Patient Problems: Problems Problem Status Onset Abdominal pain Acute
--- NOTE | 2018-08-18 23:00 | GCON ---
[f rep st] CONSULTATION CARDIOLOGY CONSULT DATE OF CONSULTATION: 08/18/2018 REASON FOR CONSULTATION: Evaluate gentleman with probable cholecystitis but history of remote bypass surgery and abnormal EKG and troponin. HISTORY OF PRESENT ILLNESS: The patient is a 77-year-old gentleman with the following cardiac histor y. He had a CABG x3 vessels in 2005. He had angina before his bypass surgery. His last echo in Jan demonstrated an LVEF of 63% with mild diastolic dysfunction and trivial mitral and tricu spid insufficiency. His last heart catheterization in February of 2015 demonstrated a patent BRDAY to the LAD, but his saphenous vein graft to OM1 and OM3 was occluded. He had 20% plaque in his ho-chunk RCA and a 50% left main lesion and a diffusely diseased left circumflex. It was elected to treat him medically. His last treadmill Cardiolite stress test in May of 2017 demonstrated an LVEF of 59 % with mild inferolateral ischemia. He has not seen his lsw in about 14 months. He does no t exercise much, enjoying sitting on his couch. He reports he has dyspnea on exertion at 1 to 2 bloc ks. He reports no chest pain, claudication symptoms, palpitations, or syncope. Starting about 4 day s ago he has been having abdominal pain and was admitted last night for evaluation. His EKG is abnor mal, showing sinus rhythm with old ST depressions in his anterior septal leads with new T-wave invers ions in V2 and V3. His troponin is 0.05. Currently he feels sick and has abdominal pain. He is tir ed and weak but reports no chest pain or shortness of breath. He has no chest pain like his previous angina. PAST MEDICAL HISTORY: Coronary artery disease as per HPI, diabetes mellitus, peripheral neuropathy, nephrolithiasis, and newly diagnosed gallstones. PAST SURGICAL HISTORY: CABG x3 vessels in 2005, parathyroidectomy, and bilateral knee surgery. CURRENT MEDICATIONS: Allopurinol 200 mg daily, aspirin 81 mg per day, Plavix 75 mg per day, Neuronti n 600 mg b.i.d., Toprol-XL 12.5 mg daily, Protonix 40 mg b.i.d., and IV fluid normal saline at 125 cc /hour. ALLERGIES: No known drug allergies. SOCIAL HISTORY: Patient does not smoke. He has mild alcohol intake. FAMILY HISTORY: Positive for premature coronary artery disease. REVIEW OF SYSTEMS: Patient reports no GI bleed symptoms such as hematemesis or melena or bright red blood per rectum. He has no cough or purulent sputum production. Rest of 10-point review of systems is negative. PHYSICAL EXAM: VITAL SIGNS: Temperature 37.4 Celsius, pulse 87 and regular, blood pressure 170/89, respirations 20, weight 99.8 kg. GENERAL: A mildly toxic appearing gentleman in no acute distress w ithout chest pain or using excess respiratory muscles. EYES: Pupils equal, and reactive to light. ENT: Oral mucosa with no cyanosis. NECK: Jugular venous pressure low at 6 to 7 cm. Carotid pulses 2+ bilaterally with no obvious bruits. LUNGS: Clear to auscultation bilaterally without rales, rho nchi, or wheezing. HEART: Normal PMI. Regular rate and rhythm with no obvious murmurs or S3. ABDO MEN: Mildly tender. EXTREMITIES: 2+ peripheral pulses including femoral and pedal pulses. No mercedes a noted. MUSCULOSKELETAL: No scoliosis. NEURO: Normal affect and mood. SKIN: No bleeding or cya nosis. NECK: No nuchal rigidity. EKG: Normal sinus rhythm with T-wave inversions in V2 and V3 which are new compared to last EKG of [facility] of 2018. [address] depression noted in the anterior leads which is chronic. LABS: White count 8.6, hematocrit 38, platelets 101,000, MCV 103. Sodium 138, potassium 4.4, chlori de 105, bicarb 23, BUN 18, creatinine 1.1, glucose 188. Troponin 0.05, ALT 206, AST 39, alkaline michelle sphatase 172. IMPRESSION: A 77-year-old diabetic gentleman with coronary artery disease status post remote 3-vesse l bypass surgery in 2005 with clinical picture of abdominal pain and possible cholecystitis. He does have incomplete revascularization of his coronary system based on his last heart catheterization 3-1 /2 years ago in the left circumflex area. Clinically I think he is probably having demand ischemia t hrough his non-revascularized left circumflex system. His new T-wave inversions anteroseptally could be related to his GI process or new lesion in his left internal mammary artery graft. He has poor e xercise tolerance. PLAN: 1. We will stop long-acting Toprol-XL. 2. We will start on metoprolol tartrate 25 mg q.8 hours. 3. We will start on Imdur 30 mg daily for both blood pressure relief and antianginal relief. 4. We will get an echocardiogram in the morning to re-evaluate LV function. 5. Would do a Lexiscan stress test and Cardiolite in the morning to evaluate his abnormal EKG and el evated troponin. I suspect he will have some ischemic defect in the inferolateral distribution and w ant to make sure he has normal perfusion in his anterior wall. 6. Would stop his Plavix and anticipation that might need surgery soon. 7. Would check a troponin and serum CPK level in the morning. Thank you for allowing me to participate in the care of this patient. Cardiology service will follow along closely with you during his hospitalization. /[id number]/MODL
[2018-08-19] MEDS: PIPERACILLIN/TAZO 3.375 GM/DEX 50 ML IV SCH ×4 (02:15→20:46)
[2018-08-19 05:26] LABS: PLATELET COUNT 94 10^3/uL (150-400)
[2018-08-19 05:38] LABS: CREATINE KINASE 48 IU/L (0-224)
[2018-08-19] MEDS: INSULIN LISPRO 100 UNIT/ML SC SCH ×3 (07:41→18:23)
--- NOTE | 2018-08-19 07:53 | SOAPPROG ---
SOAP Progress Note Assessment/Plan: 08/18/18 17:01 PAD#1 Assessment: TEMP up, Patient lethargic. Troponin rising! GFR and creatinine both improving. Biliary evaluation: GB non vis on HIDA but nuclide did promptly reach the duodenum. Sono shows a moderately distended GB with "wall thickening" without hyperemia. Sonographic Vega's sign negative. Bilirubin, AST, ALT all improving. Since GB only moderately distended, not hyperemic with resolving labs and negative Vega's sign on both sono and exam, it is harder to implicate the GB as source of pathology. Looking at non-biliary sources of changes now as well. Plan: Zosyn started CXR Get lipase and lactate Follow labs Consider transfer to higher level unit Hold NPO Stress test planned for tomorrow Will continue to re-assess with you. 08/18/18 22:33 update: Patient moved to ICU for sepsis Lipase normal. CXR unremarkable F/u CT is consistent with acute cholecystitis. He now has a mildly positive Vega's sign. Awaiting LFT and troponin results. May recommend IR placed cholecystotomy tube as cardiac issues yet to be sorted out. Note WBC up to 13K, glucose stable. Temp down. VSS. He is now more responsive than earlier. Plan: Cardiac Evaluation Cholecystotomy tube as temporizing measure in AM continue to stabilize 08/19/18 07:48 PAD#2 Assessment/Plan: Dramatic improvement! Sepsis appears to be resolved. Bili1.6 LFTs resolved. Troponin dropping. Mild RUQ tenderness/mildly positive Vega's sign. On Zosyn. I don't think that a cholecystotomy tube will be a necessary temporizing measure. When cardiac evaluation complete and it is determined that no other cardiac interventions are necessary, I will proceed with cholecystectomy Subjective: I'm hungry Objective: Vital Signs Temp Pulse Resp BP Pulse Ox 37.4 C 90 28 H 129/59 H 95 08/19/18 04:00 08/19/18 06:00 08/19/18 06:00 08/19/18 06:00 08/19/18 06:00 Laboratory Results 08/19/18 05:05 08/19/18 05:10 08/18/18 08/19/18 08/20/18 05:59 05:59 05:59 Intake Total 2400 7765 Output Total 1000 1300 Balance 1400 6465 - Time Spent With Patient Time Spent With Patient: 25 - Pending Discharge Pending Discharge Within 24 Hours: No Pending Discharge Within 48 Hours: No Physical Exam - Physical Exam General Appearance: WD/WN, alert, mild distress Neck: non-tender, full range of motion, supple Respiratory: chest non-tender, lungs clear, normal breath sounds Cardiac/Chest: regular rate, rhythm Abdomen: other (Hypoactive bowel sounds, mildly positive Vega's sign, distended, soft) Male Genitalia: deferred Rectal: deferred Back: Normal inspection Skin: normal color, warm/dry Neuro/Psych: no motor/sensory deficits, alert, normal mood/affect, oriented x 3 ICD10 Worksheet Patient Problems: Problems Problem Status Onset Abdominal pain Acute
[2018-08-19] MEDS: BACITRACIN OINTMENT 1 PACKET TP SCH ×2 (08:09→23:36)
[2018-08-19] MEDS: METOPROLOL TARTRATE 25 MG TAB PO SCH ×2 (08:09→18:34)
[2018-08-19] MEDS: ACETAMINOPHEN 500 MG TAB PO SCH ×2 (08:09→18:35)
[2018-08-19] MEDS: ISOSORBIDE MONONITRATE 30 MG TAB.SR PO SCH (08:09)
[2018-08-19] MEDS: GABAPENTIN 300 MG CAP PO SCH ×2 (08:09→20:47)
[2018-08-19] MEDS: ALLOPURINOL 100 MG TAB PO SCH (08:09)
[2018-08-19] MEDS: PANTOPRAZOLE SODIUM 40 MG TAB PO SCH ×2 (08:10→20:47)
[2018-08-19] MEDS ORDERED: ASPIRIN EC 81 MG TAB PO SCH (09:00)
[2018-08-19] MEDS ORDERED: CLOPIDOGREL BISULFATE 75 MG TAB PO SCH (09:00)
--- NOTE | 2018-08-19 09:36 | ECHO ---
[email or web address] [address] [address] Main: [phone] Echocardiography Examination Transthoracic Name: MARA REYNOLDS MR#: [id number] Study Date: 08/19/2018 Study Time: 08:02 AM Date of : 1940 Age: 77 year(s) Height: 195.6 cm (77 in.) Weight: 99.79 kg (220 lb.) BSA: 2.33 m2 Gender: Male Examination: Echo Contrast: Image Quality: Fair Rhythm: Heart Rate: BP: 137 mmHg/67 mmHg Indication: CAD/CABG, abnormal EKG and troponin Procedure Staff Referring Physician: Sharepoint Administrator: Bettye Carvajal RDCS Reading Physician: Winnie Lyons MD Requesting Provider: Ordering Physician: Jared Shelton MD Indication: CAD/CABG, abnormal EKG and troponin Measurements Chambers AV/MV Label Value Normal Value Label Value Normal Value LVDd, 2D 5 cm (4.2cm - 5.9cm) AV PGmean 5 mmHg LVDs, 2D 3.3 cm (2.1cm - 4cm) AV Vmax 1.46 m/s IVSd, 2D 1.2 cm (0.6cm - 1.1cm) MV E Vmax 0.93 m/s LVPWd, 2D 1.1 cm (0.6cm - 1cm) MV A Vmax 0.54 m/s LVEF, 2D 63 % (54% - 74%) MV E/A 1.72 LA Volume, BP 110 ml (18ml - 58ml) MV E/E' lateral 11.6 LADs, 2D 4.8 cm (3cm - 4cm) MV E/E' septal 15.4 (0.45 - 1.25) LAESV index, BP 47.2 ml/m2 MV E' septal 0.06 m/s Additional Vessels MV E' lateral 0.08 m/s Label Value Normal Value MV E/E' mean 13.29 AoAsc 4.1 cm MV E' mean 0.07 m/s TV/PV Label Value Normal Value RA Pressure 5 mmHg RVSP 60 mmHg TR Pmax 55 mmHg TR Vmax 3.72 m/s Patient: MARA REYNOLDS Study Date: 08/19/2018 Page 1 of 2 08:02 AM Conclusions 1. There is mild concentric LVH. The left ventricular cavity size is normal. Normal LV systolic function with an ejection fraction of 65%. No regional wall motion abnormalities. Grade 2 diastolic dysfunction. 2. The right ventricle is normal in size and systolic function. 3. The left atrium is moderately dilated. 4. Mild tricuspid regurgitation with moderatepulmonary hypertension estimated at 60 mm of mercury. 5. The ascending aorta is mildly dilated 4.1 6. Compared with January 2015, LVH now present, left atrium is dilated. Ascending aorta is dilated. Pulmonary hypertension is now present. Findings Diastolic dysfunction is present, Grade II. Left Ventricle: Left ventricle is normal in size. Normal global systolic left ventricular function. EF range is estimated at 65 % - 70 %. There is mild concentric left ventricular hypertrophy. There are no regional wall motion abnormalities. IVS: The septum is intact. Right Ventricle: Normal size right ventricle. Right ventricular systolic function is normal. Left Atrium: The left atrium is moderately dilated. IAS: Normal appearing atrial septum. Right Atrium: The right atrium is normal in size. Mitral Valve: There is mitral annular calcification.. No mitral valve stenosis. Aortic Valve: AV opens well.. Aortic leaflets exhibit normal cuspal separation. No aortic valve regurgitation. There is no aortic stenosis. Tricuspid Valve: Tricuspid valve leaflets are normal in appearance and function. Mild tricuspid regurgitation. No tricuspid valve stenosis. Right Ventricular systolic pressure is measured at 60 mmHg. Pulmonary artery pressure moderately increased. Pulmonic Valve: Pulmonic valve is poorly visualized. Pulmonic leaflets exhibit normal cuspal separation. No pulmonic valve regurgitation is evident. There is no pulmonic valve stenosis. Aorta: Ascending aorta is mildly dilated. The aorta is normal. The ascending aorta measures 4.1 cm. Pulmonary Artery: The pulmonary artery morphology appears normal. Pericardium: A pericardial fat pad is present. No pericardial effusion. No pleural effusion present. Exam Details Procedure Ordered: Echo Procedure Status: Routine study Image Quality: Fair Facility Location: Cardiac Echo 1 (No Signature Object) Patient: MARA REYNOLDS Study Date: 08/19/2018 Page 2 of 2 08:02 AM [id number]
[2018-08-19] MEDS ORDERED: ALBUMIN 5% 500 ML IV ONE (10:06)
[2018-08-19] MEDS: PRAMIPEXOLE 0.125 MG TAB PO SCH ×2 (10:21→20:47)
[2018-08-19] MEDS: NS 1,000 ML IV SCH ×2 (10:21→17:31)
[2018-08-19] MEDS ORDERED: IOTHALAMATE MEG (CONRAY) 50 ML VIAL IV ONE (11:02)
[2018-08-19] MEDS ORDERED: HEPARIN 5,000 UNIT/0.5 ML INJ ONE ×2 (11:02→14:11)
[2018-08-19] MEDS ORDERED: ceFAZolin 1 GM/5 ML SYR ONE ×2 (11:02→14:11)
[2018-08-19] MEDS ORDERED: LR 1,000 ML IV ONE (11:43)
--- NOTE | 2018-08-19 12:06 | HOSPPROG ---
Hospitalist Progress Note Assessment/Plan: 77 yo M pw RUQ pain and elevated LFTs w/cholelithiasis without clear cholecystitis #Acute cholecystitis - Planning on OR this PM - Continue IV zosyn #Sepsis: Intermittent fluid-responsive hypotension. Rising WBC. Above source. - Abx as above, follow blood cx #Elevated troponin: Minimal at 0.06. No angina. Anterior TWI on admit that have now resolved. Preserved LVEF on TTE. - Cards consulted, no indication for further ischemic evaluation and ok to proceed with surgery today. - Continue beta laura in perioperative period #CAD: 3v CABG in 2005, LCx stent 8-9 years ago. Last cath 2018 showed patent BRADY->LAD, occluded SVG->OM1 and OM3, patent LCx stent. - Resume aspirin as soon as possible after procedure. Holding plavix for now. #Pulmonary hypertension: RVSP 60mmHg. Caution with fluids. #DM2: Recent A1c 7.2% - Holding oral meds, continue SSI #QUIANA #Peripheral neuropathy #RLS VTE ppx: SCDs Code: full Diet: NPO until procedure, then cardiac Dispo: Remain inpatient Subjective: Did well overnight. Abdominal pain much better, actually hungry. No chest pain. Later this AM, became hypotensive and diaphoretic. Objective: Vital Signs Temp Pulse Resp BP Pulse Ox 37.7 C 73 22 H 97/49 L 95 08/19/18 11:19 08/19/18 11:19 08/19/18 11:19 08/19/18 11:19 08/19/18 11:19 Laboratory Results 08/19/18 05:05 08/19/18 05:10 08/18/18 08/19/18 08/20/18 05:59 05:59 05:59 Intake Total 2400 7765 Output Total 1000 1300 150 Balance 1400 6465 -150 - Physical Exam Constitutional: no apparent distress, appears nourished, not in pain Eyes: PERRL, anicteric sclera, EOMI Ears, Nose, Mouth, Throat: moist mucous membranes, hearing normal, ears appear normal, no oral mucosal ulcers Cardiovascular: regular rate and rhythym, no murmur, rub, or gallop, No edema Respiratory: no respiratory distress, no rales or rhonchi, clear to auscultation Gastrointestinal: normoactive bowel sounds, soft, non-tender abdomen, no palpable masses Genitourinary: no bladder fullness, no bladder tenderness, no renal bruits Skin: no rashes or abrasions, no fluctuance, no induration Musculoskeletal: full muscle strength, no muscle tenderness, normal joint ROM Neurologic: AAOx3, sensation intact bilaterally Psychiatric: interacting appropriately, not anxious, not encephalopathic, thought process linear ICD10 Worksheet Patient Problems: Problems Problem Status Onset Abdominal pain Acute
--- NOTE | 2018-08-19 12:21 | PDCARPN ---
Cardiology Progress Note Chief Complaint: Abdominal pain. Assessment/Plan: Assessment: The patient is a 77 y/o M with a a history of DM and CAD s/p 3v CABG in 2005 admitted with abdominal pain and acute cholecystitis with sepsis. Cards was consulted for a cardiac evaluation prior to a cholecystectomy. He is not very active but did play basketball with his grandchildren the other day without angina. He denies any chest pain. His troponin on admission was minimally elevated and has remained flat peaking at .068. His initial EKG showed anterior Tw inversion which resolved by EKG this AM. A echo today showed preserved LV function with mild LV function with mild LVH and moderate PHTN with RVSP of 60. His last nuclear stress test was in 05/2017 which showed mild inferolateral ischemia which is unchanged from his stress test in 2014 and done prior to his angiogram. At that time his angiogram showed a patent BRADY to the LAD, and occluded SVG's to the OM1 and OM3 with patent stent in the LCX. Plan: 1. CAD with minimally elevated troponin in the setting of sepsis. He denies any symptoms suggestive of angina or CHF and his echo showed preserved LV function without wall motion abnormalities. He can proceed with urgent surgery as planned knowing that he is at increased risk for perioperative complications secondary to his history of CAD and PHTN. The risk can be minimized by continuing Metoprolol in the perioperative and postoperative setting. We will continue to follow up along with you. 08/19/18 15:09 Subjective: He is complaining of abdominal pain. He denies any CP or SOB at rest. He denies any PND, orthopnea, or lower extremity edema. Reviewed/Discussed With: multidisciplinary team Objective: Vital Signs (8 Hrs) Temp Pulse Resp BP Pulse Ox 08/19/18 11:19 37.7 C 73 22 H 97/49 L 95 08/19/18 10:47 75 98/53 L 08/19/18 10:00 37.7 C 81 27 H 87/49 L 95 08/19/18 08:00 90 30 H 118/51 L 93 08/19/18 06:00 90 28 H 129/59 H 95 Intake/Output (24 Hrs) 08/18/18 08/19/18 08/20/18 05:59 05:59 05:59 Intake Total 2400 7765 Output Total 1000 1300 150 Balance 1400 6465 -150 Intake: Oral (ml) 400 IV Infused (ml) 2000 7765 Ns 1,000 ml @ 125 mls/hr 3665 IV CONT SUPA Rx#: [id number] Ns 3,000 ml @ 500 mls/hr 4000 IV ONCE ONE Rx#: [id number] Piperacillin/Tazo 3.375 100 gm/Dex 50 ml @ 100 mls/hr IV Q6H SUPA Rx#: [id number] Output: Urine (ml) 1000 1300 150 Urinal 1000 1300 150 Other: Weight 99.79 kg Intake Quantity No Sufficient Output Comment Urinal has some incontinence on the floor Number of Voids 1 Toilet 1 Urinal 2 2 Result Diagrams: 08/19/18 05:05 08/19/18 05:10 Cardiac Labs: Cardiac Lab Results (72 Hrs) 08/19/18 08/18/18 08/18/18 05:10 21:55 09:49 Troponin I 0.053 H 0.068 H 0.050 H 08/18/18 08/17/18 04:50 18:44 Troponin I 0.046 H < 0.012 EKG: NSR. Anterior Tw improved. Telemetry: NSR - Physical Exam Constitutional: no apparent distress Cardiovascular: regular rate and rhythm, no murmurs, no rubs, no gallops Respiratory: clear to auscultate bilat, no crackles, no wheezes Skin: no edema Neurologic: AAOx3 ICD10 Worksheet Patient Problems: Problems Problem Status Onset Abdominal pain Acute
--- NOTE | 2018-08-19 12:23 | PDANEPAE ---
ANE Past Medical History - Pulmonary History Hx Oxygen in Use at Home: No Hx Sleep Apnea: Yes Sleep Apnea Screening Result - Last Documented: Positive - Endocrine History Hx Diabetes: Yes Obesity: moderate - Chronic Pain History Chronic Pain: No ANE Review of Systems Review of Systems: ANE Patient History - Allergies Allergies/Adverse Reactions: No Known Allergies Allergy (Verified 08/17/18 15:23) - Home Medications Home medications: home medication list seen and reviewed Home Medications: Allopurinol [Allopurinol 100 MG (*)] 200 mg PO DAILY 08/17/18 [Last Taken ] Aspirin EC [Aspirin EC 81 mg (*)] 81 mg PO DAILY 08/17/18 [Last Taken 08/17/18] Atorvastatin Calcium [Lipitor 20 mg (*)] 20 mg PO MOWEFR@1800 08/17/18 [Last Taken 08/16/18] Clopidogrel Bisulfate [Clopidogrel] 75 mg PO DAILY 08/17/18 [Last Taken 08:00] Gabapentin [Neurontin 300 MG (*)] 600 mg PO BID 08/17/18 [Last Taken 08/17/18 08 :00] Glimepiride [Amaryl 2 MG (*)] 2 mg PO DAILY 08/17/18 [Last Taken 08/10/18] Metoprolol Succinate [Metoprolol Succinate] 12.5 mg PO DAILY 08/17/18 [Last Taken 08/17/18] Pramipexole Di-HCl [Mirapex 0.125 mg (*)] 0.125 mg PO BID 08/17/18 [Last Taken 08/17/18 08:00] metFORMIN HCL [Metformin HCl] 500 mg PO BIDMEAL 08/17/18 [Last Taken 08/17/18 08 :00] - NPO status NPO Status: no food or drink >8 hours NPO Since - Liquids (Date): 08/18/18 NPO Since - Liquids (Time): 00:00 NPO Since - Solids (Date): 08/18/18 NPO Since - Solids (Time): 00:00 - Anes Hx Anes Hx: no prior problems - Smoking Hx Smoking Status: Never smoked - Alcohol Use Alcohol Use: Rarely ANE Labs/Vital Signs - Labs Result Diagrams: 08/19/18 05:05 08/19/18 05:10 - Vital Signs Blood Pressure: 97/49 Heart Rate: 73 Respiratory Rate: 22 O2 Sat (%): 95 Height: 195.58 cm Weight: 99.79 kg ANE Physical Exam - Airway Neck exam: FROM Mallampati Score: Class 2 Mouth exam: normal dental/mouth exam - Pulmonary Pulmonary: no respiratory distress, no rales or rhonchi, clear to auscultation - Cardiovascular Cardiovascular: regular rate and rhythym, no murmur, rub, or gallop - ASA Status ASA Status: III ANE Anesthesia Plan Anesthesia Plan: general endotracheal anesthesia
[2018-08-19] MEDS ORDERED: fentaNYL 100 MCG/2 ML INJ ONE ×3 (12:42→15:58)
[2018-08-19] MEDS ORDERED: PROPOFOL 200 MG/20 ML VIAL ONE ×2 (12:44→12:50)
[2018-08-19] MEDS ORDERED: LIDOCAINE 2% 2 ML INJ ONE (12:51)
[2018-08-19] MEDS ORDERED: ONDANSETRON 4 MG/2 ML VIAL ONE (12:51)
[2018-08-19] MEDS ORDERED: ROCURONIUM 50 MG/5 ML VIAL ONE ×2 (12:51→14:02)
[2018-08-19] MEDS ORDERED: PHENYLEPHRINE HCL 100 MCG/ML SYR ONE (12:57)
[2018-08-19] MEDS ORDERED: PHENYLEPHRINE 10 MG/ML SDV ONE (13:17)
[2018-08-19] MEDS ORDERED: ALBUMIN 5% 250 ML BOTTLE IV ONE (14:56)
--- NOTE | 2018-08-19 14:57 | GCON ---
[f rep st] CONSULTATION PULMONARY/CRITICAL CARE CONSULTATION DATE OF CONSULTATION: 08/19/2018 REASON FOR CONSULTATION: Intensive care unit evaluation and management of sepsis associated with cho lecystitis. HISTORY: The patient is pleasant 77-year-old gentleman with a history of coronary artery disease and 3-vessel coronary artery bypass grafting. He was admitted 2 days ago with right upper quadrant pain and increased LFTs. He subsequently declared himself with acute cholecystitis and is to be taken to the operating room today. He has a history of significant cardiac disease as noted above. He is be ing followed by Cardiology. Aspirin and Plavix are on hold. He was admitted to the intensive care u nit last night with borderline blood pressures. He was given intravenous fluids. He did not need pr essor or therapy. His hypotension was felt to be secondary to sepsis. PAST MEDICAL HISTORY: Remarkable for issues as noted above including coronary artery disease, type 2 diabetes, obstructive sleep apnea, peripheral neuropathy, restless legs, gout, hyperlipidemia, and s ystemic hypertension. MEDICATIONS: As listed. SOCIAL HISTORY: The patient is with a supportive and daughter, both here. He is a neve r smoker. Significant alcohol is negative. FAMILY HISTORY: Noncontributory. REVIEW OF SYSTEMS: A 10-point review of systems is negative except as mentioned in the HPI. PHYSICAL EXAMINATION: GENERAL: Reveals a pleasant gentleman who is lying in bed. He is not in any acute pain. VITAL SIGNS: Blood pressures are approximately 100/50, heart rate is 75 with sinus rhyt hm on the monitor, respiratory rate is 20, on 2 L saturations are 95%. He is currently afebrile with a maximum temperature of 39.2. HEENT: Unremarkable for lymphadenopathy or thyromegaly. Nasal fernando griselda oxygen is in place. There is no obvious jugular venous distention. CHEST: Clear bilaterally. Breath sounds are diminished at the bases. HEART: Regular in rate and rhythm. There is a soft syst olic murmur. No gallop. ABDOMEN: Tender over the right upper quadrant. Complete examination was n ot done. Bowel sounds are diminished. EXTREMITIES: Unremarkable for edema, cords, or tenderness. NEUROLOGIC: Examination is intact. LABORATORY: White blood cell count is 15,600, hematocrit 33, MCV 105, platelets 94,000. Venous lact ate peaked at 2.3, decreased to 1.7. Basic metabolic panel is within normal limits with the exceptio n of elevated creatinine of 1.4; the lowest creatinine was 1.2. Bilirubin is 1.6, AST 23 with ALT of 110. Alkaline phosphatases normal. Troponin is 0.05, albumin 2.7. Lipase is negative. ASSESSMENT: 1. Acute cholecystitis. The patient is being taken to the operating room by Dr. Craig for surgical removal. 2. Sepsis. This is associated with hypotension. He has been fluid responsive. Further assessment regarding fluid status will be made postoperatively. He is on appropriate antibiotics (Zosyn). 3. History of coronary artery disease. Status post coronary artery bypass grafting. No evidence of an acute coronary event. 4. History of other medical problems as outlined above. 5. Anemia. Hematocrit has drifted down to approximately 33. We will follow. 6. Thrombocytopenia. We will follow. 7. Low platelets, probably secondary to sepsis. 8. Elevated creatinine at 1.4. Follow up postoperatively. 9. Metabolic: No significant issues identified. We will follow glucoses secondary to history of ty pe 2 diabetes. PLAN AND RECOMMENDATIONS: Patient will be kept in the intensive care unit postoperatively. Riri burnett will be followed. Blood pressure will be reassessed with fluids given as indicated. Pressor ther apy may or may not be needed. Adequate pain control will be maintained. Anti-platelet agents will b e restarted when possible. Cardiology to follow. Further plans and recommendations based on his progress postoperatively. /[id number]/MODL
[2018-08-19] MEDS ORDERED: ONDANSETRON 4 MG/2 ML VIAL IVP PRN (15:09)
[2018-08-19] MEDS ORDERED: PROMETHAZINE HCL 25 MG/ML INJ IVP PRN (15:09)
[2018-08-19] MEDS ORDERED: LR 500 ML IV PRN (15:09)
[2018-08-19] MEDS ORDERED: HYDROmorphONE/DILAUDID 1 MG/ML INJ IVP PRN (15:09)
[2018-08-19] MEDS ORDERED: NALOXONE HCL 0.4 MG/ML INJ IVP PRN (15:09)
[2018-08-19] MEDS ORDERED: DEXAMETHASONE 4 MG/ML VIAL IVP PRN (15:09)
[2018-08-19] MEDS ORDERED: SUGAMMADEX SODIUM 200 MG/2 ML VIAL IVP ONE (15:34)
--- NOTE | 2018-08-19 15:57 | POSTANESTH ---
Post Anesthetic Evaluation Cardiovascular Status: Normal, Stable, Similar to Pre-Op Cond Respiratory Status: Normal, Stable, Similar to Pre-op Cond. Level of Consciousness/Mental Status: Can Participate in Eval, Mildly Sleepy, Arousable Pain Control: Inadeq, Add Tx Required Nausea/Vomiting Control: Adequate, Prn Tx Ordered Complications Possibly Related to Anesthesia: None Noted
[2018-08-19] MEDS: fentaNYL 100 MCG/2 ML INJ IVP PRN ×2 (15:59→16:14)
[2018-08-19] MEDS ORDERED: HYDROmorphONE/DILAUDID 1 MG/ML INJ ONE (16:27)
--- NOTE | 2018-08-19 16:30 | POSTOPPROG ---
Post Op Note Date of Operation: 08/19/18 Surgeon: Gómez Craig Anesthesia: GET(General Endotracheal) Pre-op Diagnosis: acute and chronic cholecystitis with cholelithiasis Post-op Diagnosis: acute and chronic cholecystitis with cholelithiasis w/ extensive adhesions Indication: acute and chronic cholecystitis with cholelithiasis, resolving sepsis Procedure: Laparoscopic cholecystectomy with converson to an open proceedure Findings: acute and chronic cholecystitis with cholelithiasis w/ extensive adhesions Inf/Abcess present in the surg proc area at time of surgery?: Yes Depth: Organ Space EBL: 500-1000 Total fluids administered: 1400cc crystaloid 500cc plasmanate Complications: gall bladder rupture with surgery Drains: Vega George (in biliary fossa and extended to brooks's pouch) Specimen(s): Gallbladder and stones
[2018-08-19] MEDS: HYDROmorphONE/DILAUDID 1 MG/ML INJ IVP PRN ×2 (17:24→19:54)
[2018-08-19] MEDS ORDERED: ATORVASTATIN CALCIUM 20 MG TAB PO SCH (18:00)
[2018-08-19 21:13] LABS: PLATELET COUNT 76 10^3/uL (150-400)
[2018-08-19] MEDS ORDERED: NS BOLUS 500 ML IV ONE ×3 (23:00→23:45)
[2018-08-19] MEDS ORDERED: LIDOCAINE 2% JELLY 20 ML (UROJECT) UR ONE (23:30)
[2018-08-19] MEDS ORDERED: METOPROLOL TARTRATE 25 MG TAB PO SCH (23:30)
[2018-08-20] MEDS: METOPROLOL TARTRATE 25 MG TAB PO SCH ×4 (00:46→21:30)
[2018-08-20] MEDS: ACETAMINOPHEN 500 MG TAB PO SCH ×3 (01:29→16:12)
[2018-08-20] MEDS: PIPERACILLIN/TAZO 3.375 GM/DEX 50 ML IV SCH ×4 (01:29→19:43)
[2018-08-20] MEDS: HYDROmorphONE/DILAUDID 1 MG/ML INJ IVP PRN ×4 (03:33→14:36)
[2018-08-20] MEDS: NS 1,000 ML IV SCH ×4 (03:34→16:09)
--- NOTE | 2018-08-20 03:38 | GOP ---
[f rep st] OPERATIVE REPORT DATE OF OPERATION: 08/19/2018 SURGEON: Gómez Craig MD ANESTHESIA: General endotracheal. PREOPERATIVE DIAGNOSIS: Acute and chronic cholecystitis with cholelithiasis. POSTOPERATIVE DIAGNOSIS: Acute and chronic cholecystitis with cholelithiasis and extensive adhesions. PROCEDURE PERFORMED: Laparoscopic cholecystectomy, requiring conversion to open procedure for safety due to adhesions. FINDINGS: Acute and chronic cholecystitis with cholelithiasis with extensive adhesions. There was a chronic adhesions of the gallbladder. SPECIMENS: Gallbladder and gallstones. ESTIMATED BLOOD LOSS: 750cc INDICATIONS: Acute and chronic cholecystitis with cholelithiasis, resolving sepsis. DESCRIPTION OF PROCEDURE: The patient was placed on the operating table in supine position after he has emptied his bladder. He is placed under general endotracheal anesthesia. The abdomen was carefully clipped, prepped, and draped. A surgical time-out was agreed to by all members of the operative team. A curvilinear incision is made in the infraumbilical skin. The incision was deepened with Bovie electrocautery down through the subcutaneous tissue. The fascia was elevated between Allis clamps and divided in the midline with cautery. A pursestring of #0 PDS was placed. An 11/12 mm disposable Perez trocar was positioned at this site. Intra- abdominal insufflation was carried out to 15 mm. A transverse upper epigastric incision was made for 5 mm port placement. Two right upper quadrant 5 mm ports were also placed. The omentum is densely adherent to the gallbladder. Irrigation was carried out during the course of the procedure with heparin and Ancef-containing irrigant. Note is made, the patient is on Zosyn. He received a repeat dose at 2 p.m. Using a Harmonic scalpel, careful and tedious dissection was started. Unfortunately, the anterior abdominal wall was fragile and spontaneously opens. Bile was carefully aspirated. Several stones were retrieved. The gallbladder was densely adherent to the omentum. Approximately 1/3 of the gallbladder could be removed but it becomes more and more difficult and I am concerned about injury to the ducts (injury to the cystic duct, CBD and control of the cystic artery). I opted at this point to convert to an open procedure. A vertical midline incision is made. It is deepened with Bovie electrocautery to and extended through the linea alba. The peritoneum was entered sharply. This extended with Bovie electrocautery in the cephalad and caudal directions. Bookwalter retractor is used. Exposure of the gallbladder is carried out. Careful sharp, harmonic and blunt dissection were used to free the gallbladder down to its infundibulum. What appears to be the cystic artery is doubly clipped on the patient's side and transected. Careful dissection yielded the cystic duct which was cleared up circumferentially. It it tied twice with silk sutures and doubly clipped. It is divided on the gallbladder end of the double sutures. The specimen was removed from the field. The operative site was carefully examined. Three additional small stones were identified and removed. There has been a constant oozing issue during the course of the procedure from the biliary fossa. This has been controlled with electrocautery. The abdominal cavity is now well irrigated with several liters of warm saline. The Vega-George drain was led out through the lateral upper quadrant port and secured to the skin level with 3-0 silk suture. It is carefully placed so it goes along the biliary fossa and drapes down into Morison pouch. The umbilical incision is now examined. Inverted simple suture of #0 PDS was placed in the fascia at its midpoint and tied. The umbilical pursestring was now tied. The vertical midline epigastric incision was closed using a running suture of 0 PDS starting at either end of the incision. The knot was tied and placed beneath the fascia at the midpoint. The subcutaneous tissue was well irrigated. Interrupted sutures of #4-0 Vicryl were used to close the right upper quadrant, the remaining port site in the umbilicus as well as the epigastric incision. The skin is now closed with candis both at the umbilical site and the midline. Sterile dressings were applied. A GORGE bulb was applied. The patient was transferred to recovery in stable and satisfactory condition. A note is made this case took 50% longer than usual because of the extensive adhesions/difficult dissection. FLUIDS ADMINISTERED: 1400 cc of crystalloid, 500 cc of Plasmanate. COMPLICATIONS: Gallbladder rupture/disintegration. DRAINS: GORGE in biliary fossa extending into Morison pouch. /[id number]/MODL MTDD
[2018-08-20 05:37] LABS: PLATELET COUNT 82 10^3/uL (150-400)
[2018-08-20] MEDS: ALLOPURINOL 100 MG TAB PO SCH (08:54)
[2018-08-20] MEDS: ISOSORBIDE MONONITRATE 30 MG TAB.SR PO SCH (08:54)
[2018-08-20] MEDS: PANTOPRAZOLE SODIUM 40 MG TAB PO SCH ×2 (08:54→21:30)
[2018-08-20] MEDS: BACITRACIN OINTMENT 1 PACKET TP SCH ×2 (08:55→21:29)
[2018-08-20] MEDS: PRAMIPEXOLE 0.125 MG TAB PO SCH ×2 (08:55→21:28)
[2018-08-20] MEDS: GABAPENTIN 300 MG CAP PO SCH ×2 (08:55→21:28)
[2018-08-20] MEDS: INSULIN LISPRO 100 UNIT/ML SC SCH ×3 (08:56→16:29)
--- NOTE | 2018-08-20 09:03 | SOAPPROG ---
SOAP Progress Note Assessment/Plan: Assessment/Plan: 77 Y M c cardiac hx involving CABG and coronary stents admitted with acute cholecystitis, cholelithiasis, RUQ pain, elevated LFTs. Fluid responsive sepsis related hypotension. s/p ex laparoscopy, laparotomy with difficult cholecystectomy with Dr. Craig, 08/19. POD#1. Pain controlled. Conjugated Bili up to 3.1 today. GORGE drain is nonbilious. Follow for now with repeat labs in am. Continue GORGE drain. Plan for dressing change tomorrow. Clear liquids today. OOB today. Blood cultures pending. NGTD. On zosyn. S: no pain, has not gotten oob yet he says. no n/v. O: alert, nad ctab anteriorly rrr abd soft, wounds well dressed, hypoactive BS, drain serosanguinous 08/20/18 09:03 Objective: Vital Signs Temp Pulse Resp BP Pulse Ox 36.8 C 75 16 121/66 H 97 08/20/18 08:00 08/20/18 08:55 08/20/18 08:00 08/20/18 08:55 08/20/18 08:00 Laboratory Results 08/20/18 05:25 08/20/18 05:25 08/19/18 08/20/18 08/21/18 05:59 05:59 05:59 Intake Total 6207 6615 Output Total 8402 5455 Balance 8057 9860 ICD10 Worksheet Patient Problems: Problems Problem Status Onset Abdominal pain Acute
--- NOTE | 2018-08-20 09:24 | HOSPPROG ---
Hospitalist Progress Note Assessment/Plan: 77 yo M pw RUQ pain found to have sepsis and acute cholecystitis. #Acute on chronic cholecystitis - s/p lap->open cholecystectomy 08/19 - GORGE drain per surgery #Sepsis: Physiology better. - Continue zosyn for now, cultures NGTD #EKATERINA on CKD: Likely fluid shifts/prerenal - s/p 1L NS last night, continue mIVF for now #Elevated troponin: Peak 0.06. No angina. Anterior TWI on admit that have now resolved. No WMA on echo. - Cards consulted, no indication for further ischemic evaluation - Continue beta laura #Acute hypoxia 2/2 atelectasis - IS at bedside, OOB #CAD: 3v CABG in 2005, LCx stent 8-9 years ago. Last cath 2018 showed patent BRADY->LAD, occluded SVG->OM1 and OM3, patent LCx stent - Will discuss w/surgery re: restarting aspirin/plavix #Pulmonary hypertension: RVSP 60mmHg. Caution with fluids. #DM2: Recent A1c 7.2% - Holding oral meds, continue SSI #QUIANA #Peripheral neuropathy: On gabapentin. #RLS VTE ppx: SCDs Code: full Diet: clears today Dispo: Remain inpatient, ok to transfer to floor w/tele Subjective: Intermittent upper abdominal pain. No chest pain or shortness of breath. No fevers. Wanting to drink water. Objective: Vital Signs Temp Pulse Resp BP Pulse Ox 36.8 C 75 16 121/66 H 97 08/20/18 08:00 08/20/18 08:55 08/20/18 08:00 08/20/18 08:55 08/20/18 08:00 Laboratory Results 08/20/18 05:25 08/20/18 05:25 08/19/18 08/20/18 08/21/18 05:59 05:59 05:59 Intake Total 7755 8440 Output Total 8131 1745 Balance 8560 9595 - Physical Exam Constitutional: no apparent distress, appears nourished, not in pain Eyes: PERRL, anicteric sclera, EOMI Ears, Nose, Mouth, Throat: moist mucous membranes, hearing normal, ears appear normal, no oral mucosal ulcers Cardiovascular: regular rate and rhythym, no murmur, rub, or gallop, No edema Respiratory: no respiratory distress, reduced air movement, No expiratory wheeze , No inspiratory crackles Gastrointestinal: distension, other (decreased bowel sounds, GORGE drain in RUQ), No tenderness Genitourinary: no bladder fullness, no bladder tenderness, no renal bruits Skin: no rashes or abrasions, no fluctuance, no induration Musculoskeletal: full muscle strength, no muscle tenderness, normal joint ROM Neurologic: AAOx3 Psychiatric: interacting appropriately ICD10 Worksheet Patient Problems: Problems Problem Status Onset Abdominal pain Acute
--- NOTE | 2018-08-20 11:27 | PDINTPN ---
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 Status post cholecystectomy. Doing well postoperatively. On Zosyn. Sepsis: Resolving. Blood pressure normalized, no longer requiring fluid/ colloid boluses. Elevated creatinine: 1.8 today postoperatively. Will continue IV fluids, follow. History of coronary artery disease/CABG. No evidence of acute coronary issues. Anemia: Hematocrit 26 and stable postoperatively. Thrombocytopenia: Resolving. Type 2 diabetes: Glucoses stable. On sliding scale insulin if needed. Prophylaxis: On pantoprazole. Add prophylactic anticoagulation today per surgery. Plan: Continue antibiotics and IV fluids. Follow laboratory, CBC. Continue care otherwise. Can transfer to a medical-surgical bed on PCU when available. 25 min of critical care time spent directly with the patient. Discussed with the patient and his daughter, nursing, and the ICU multi disciplinary team. Subjective: Feels better. Not hungry. Expected postoperative abdominal discomfort present. No lightheadedness. Objective: Vital Signs Temp Pulse Resp BP Pulse Ox 36.8 C 75 16 121/66 H 97 08/20/18 08:00 08/20/18 08:55 08/20/18 08:00 08/20/18 08:55 08/20/18 08:00 Laboratory Results 08/20/18 05:25 08/20/18 05:25 08/19/18 08/20/18 08/21/18 05:59 05:59 05:59 Intake Total 7765 8440 Output Total 1300 1745 530 Balance 6465 6695 -530 Laboratory Tests 08/20/18 05:25 Calcium 6.9 L Total Bilirubin 3.7 H AST 84 H ALT 123 H Albumin 2.4 L Lipase 30 CXR: Left basilar retrocardiac infiltrate/atelectasis. Physical Exam - Physical Exam General Appearance: alert, no apparent distress EENT: other (Nasal cannula in place at 2 L. ) Neck: normal inspection (No JVD) Respiratory: lungs clear, decreased breath sounds (At bases), No rales, No rhonchi Cardiac/Chest: regular rate, rhythm, No gallop Abdomen: soft, other (Dressing in place.), No normal bowel sounds (Quiet postoperatively.), No non-tender Male Genitalia: other (No Barrios catheter) Skin: warm/dry, pallor Neuro/Psych: no motor/sensory deficits, alert, No cognition abnormalities ICD10 Worksheet Patient Problems: Problems Problem Status Onset Abdominal pain Acute
[2018-08-20] MEDS: ASPIRIN 81 MG CHEWABLE TAB PO SCH (11:55)
--- NOTE | 2018-08-20 13:14 | CPEKG ---
Test Reason : OPEN Blood Pressure : / mmHG Vent. Rate : 082 BPM Atrial Rate : 082 BPM P-R Int : 156 ms QRS Dur : 084 ms QT Int : 412 ms P-R-T Axes : -20 024 040 degrees QTc Int : 482 ms Sinus rhythm Abnormal R-wave progression, early transition Borderline prolonged QT interval Confirmed by Caleb Hewitt ([id number]) on 08/20/2018 1:14:19 PM Referred By: Brianna Daniel Confirmed By:Caleb Hewitt
--- NOTE | 2018-08-20 14:43 | PDCARPN ---
Cardiology Progress Note Chief Complaint: Chest pain Assessment/Plan: Assessment: The patient is a 77 y/o M with a a history of DM and CAD s/p 3v CABG in 2005 admitted with abdominal pain and acute cholecystitis with sepsis. Cards was consulted for a cardiac evaluation prior to a cholecystectomy. He is not very active but did play basketball with his grandchildren the other day without angina. He denies any chest pain. His troponin on admission was minimally elevated and has remained flat peaking at .068. His initial EKG showed anterior Tw inversion which resolved by EKG this AM. A echo today showed preserved LV function with mild LV function with mild LVH and moderate PHTN with RVSP of 60. His last nuclear stress test was in 05/2017 which showed mild inferolateral ischemia which is unchanged from his stress test in 2014 and done prior to his angiogram. At that time his angiogram showed a patent BRADY to the LAD, and occluded SVG's to the OM1 and OM3 with patent stent in the LCX. He is s/p cholecystectomy POD 1. He has felt well until this afternoon around 1PM. He had a few seconds of chest pressure which resolved after a few seconds with change position. He is currently CP free. Plan: 1. CAD with minimally elevated troponin in the setting of sepsis. He has one short episode of CP this afternoon. A EKG again shows minor T wave changes in the anterior leads. Continue to monitor with repeat EKG tomorrow morning. Continue medical management with Aspirin and Metoprolol. Resume Plavix tomorrow per surgery team. Consider outpatient nuclear stress test. 08/20/18 14:37 Subjective: One episode of chest pressure at 1PM today which lasted a few seconds. He denies any further CP and is currently CP free. Objective: Vital Signs (8 Hrs) Temp Pulse Resp BP Pulse Ox 08/20/18 11:27 36.9 C 69 19 90/47 L 91 L 08/20/18 08:55 75 121/66 H 08/20/18 08:54 121/66 H 08/20/18 08:00 36.8 C 72 16 121/66 H 97 Intake/Output (24 Hrs) 08/19/18 08/20/18 08/21/18 05:59 05:59 05:59 Intake Total 7765 8440 Output Total 6111 1117 530 Balance 6790 9925 -530 Intake: IV Intake (ml) 1725 IV Infused (ml) 7765 6715 Albumin 5% 500 ml @ As 2000 Directed IV ONCE ONE Rx#: [id number] Ns 1,000 ml @ 125 mls/hr 3665 4715 IV CONT SUPA Rx#: [id number] Ns 3,000 ml @ 500 mls/hr 4000 IV ONCE ONE Rx#: [id number] Piperacillin/Tazo 3.375 100 gm/Dex 50 ml @ 100 mls/hr IV Q6H SUPA Rx#: [id number] Output: Urine (ml) 1300 450 450 Urinal 1300 450 450 Estimated Blood Loss (ml) 1000 GORGE Drain Output (ml) 295 80 Right Abdomen Vega 295 80 George Other: Weight 99.79 kg Intake Quantity No Sufficient Output Comment Urinal has some incontinence on the floor unknown amount, pt in preop Number of Voids Urinal 2 1 Result Diagrams: 08/20/18 05:25 08/20/18 05:25 Cardiac Labs: Cardiac Lab Results (72 Hrs) 08/19/18 08/18/18 08/18/18 05:10 21:55 09:49 Troponin I 0.053 H 0.068 H 0.050 H 08/18/18 08/17/18 04:50 18:44 Troponin I 0.046 H < 0.012 - Physical Exam Constitutional: healthy appearing Cardiovascular: regular rate and rhythm, no murmurs, no rubs, no gallops Respiratory: clear to auscultate bilat, no crackles Skin: no edema Neurologic: AAOx3 ICD10 Worksheet Patient Problems: Problems Problem Status Onset Abdominal pain Acute
--- NOTE | 2018-08-20 16:36 | CPEKG ---
Test Reason : OPEN Blood Pressure : / mmHG Vent. Rate : 065 BPM Atrial Rate : 066 BPM P-R Int : 160 ms QRS Dur : 089 ms QT Int : 438 ms P-R-T Axes : -11 019 024 degrees QTc Int : 456 ms Sinus rhythm Supraventricular bigeminy Low voltage, precordial leads Confirmed by Caleb Hewitt ([id number]) on 08/20/2018 4:35:51 PM Referred By: Brianna Daniel Confirmed By:Caleb Hewitt
[2018-08-20] MEDS: traMADol 50 MG TAB PO PRN (21:29)
[2018-08-21] MEDS: PIPERACILLIN/TAZO 3.375 GM/DEX 50 ML IV SCH ×4 (01:24→20:54)
[2018-08-21] MEDS: ACETAMINOPHEN 500 MG TAB PO SCH ×2 (01:24→11:12)
--- NOTE | 2018-08-21 08:30 | SOAPPROG ---
SOAP Progress Note Assessment/Plan: Assessment/Plan: 77 Y M c cardiac hx involving CABG and coronary stents admitted with acute cholecystitis, cholelithiasis, RUQ pain, elevated LFTs. Fluid responsive sepsis related hypotension. s/p ex laparoscopy, laparotomy with difficult cholecystectomy with Dr. Craig, 08/19. POD#2. Conjugated Bili increased today. Will get HIDA scan. D/w'ed nuclear medicine. GORGE drain output is suspicious for bile leak. If has leak, may need GI consult and ERCP. Holding plavix this in case procedure needed. Continue clear liquids. Blood cultures pending. NGTD. On zosyn. Continue routine post op care. May leave inc open to air if remains dry. Discussed with Dr. Woodall. S: pain controlled. passing gas. no n/v. eager to know plan. O: alert, nad ctab anteriorly rrr abd soft, inc cdi, hypoactive BS, drain dark thin serosanguinous, possibly bile tinge 08/21/18 08:28 Objective: Vital Signs Temp Pulse Resp BP Pulse Ox 37.2 C 80 19 139/79 H 94 08/21/18 07:37 08/21/18 07:37 08/21/18 07:37 08/21/18 07:37 08/21/18 07:37 Laboratory Results 08/21/18 04:44 08/21/18 04:44 08/20/18 08/21/18 08/22/18 05:59 05:59 05:59 Intake Total 8440 300 Output Total 1745 5830 275 Balance 6695 -1570 -275 ICD10 Worksheet Patient Problems: Problems Problem Status Onset Abdominal pain Acute
[2018-08-21] MEDS: NS 1,000 ML IV SCH (09:01)
[2018-08-21] MEDS: INSULIN LISPRO 100 UNIT/ML SC SCH ×3 (09:44→18:44)
[2018-08-21] MEDS ORDERED: NS 500 ML IV ONE (09:53)
--- NOTE | 2018-08-21 09:54 | HOSPPROG ---
Hospitalist Progress Note Assessment/Plan: 77 yo M pw RUQ pain found to have sepsis and acute cholecystitis. #Acute on chronic cholecystitis - s/p lap->open cholecystectomy 08/19 - GORGE drain per surgery #Hyperbilirubinemia: Slightly up today. GORGE drain output ? c/w bile. - HIDA scan to eval for biliary leak. If +, will consult GI for potential ERCP #Sepsis: Physiology better. - Continue zosyn, cultures NGTD #EKATERINA on CKD: Slightly worse today, suspect prerenal/dehydrated. - Check urine studies - Give additional 500ml NS and continue mIVF #Chest pain: One episode 08/20. ECG with anterior TWI. Trop peak 0.06 prior to surgery in setting of sepsis. No WMA on echo. - Repeating ECG this AM #Acute hypoxia 2/2 atelectasis - IS at bedside, OOB #CAD: 3v CABG in 2005, LCx stent 8-9 years ago. Last cath 2018 showed patent BRADY->LAD, occluded SVG->OM1 and OM3, patent LCx stent - Restarted aspirin, continue beta laura - Holding plavix pending any further procedures - Will need outpatient stress test #Pulmonary hypertension: RVSP 60mmHg. Caution with fluids. #DM2: Recent A1c 7.2% - Holding oral meds, continue SSI #QUIANA #Peripheral neuropathy: On gabapentin. #RLS VTE ppx: SCDs Code: full Diet: clears today Dispo: Remain inpatient, ADD pending clinical course Subjective: Brief episode of chest pain yesterday PM, lasted a few seconds. ECG with inverted T waves in anterior leads. No further episodes. Had bad lower back pain overnight that resolved with repositioning and tylenol. No significant abdominal pain except at incision when he coughs. Otherwise doing ok , no fevers. Objective: Vital Signs Temp Pulse Resp BP Pulse Ox 37.2 C 80 19 139/79 H 94 08/21/18 07:37 08/21/18 07:37 08/21/18 07:37 08/21/18 07:37 08/21/18 07:37 Laboratory Results 08/21/18 04:44 08/21/18 04:44 08/20/18 08/21/18 08/22/18 05:59 05:59 05:59 Intake Total 8440 300 Output Total 1745 1870 275 Balance 6695 -1570 -275 - Physical Exam Constitutional: no apparent distress Eyes: PERRL, anicteric sclera, EOMI Ears, Nose, Mouth, Throat: hearing normal, ears appear normal, no oral mucosal ulcers, dry mucous membranes Cardiovascular: regular rate and rhythym, no murmur, rub, or gallop, No edema Respiratory: no respiratory distress, reduced air movement (bases) Gastrointestinal: distension, other (GORGE drain in place, midline incision c/d/i) , No tenderness Genitourinary: no bladder fullness, no bladder tenderness, no renal bruits Skin: no rashes or abrasions, no fluctuance, no induration Musculoskeletal: full muscle strength, no muscle tenderness, normal joint ROM Neurologic: AAOx3 Psychiatric: interacting appropriately ICD10 Worksheet Patient Problems: Problems Problem Status Onset Abdominal pain Acute
[2018-08-21] MEDS: ASPIRIN 81 MG CHEWABLE TAB PO SCH (11:11)
[2018-08-21] MEDS: ALLOPURINOL 100 MG TAB PO SCH (11:11)
[2018-08-21] MEDS: ISOSORBIDE MONONITRATE 30 MG TAB.SR PO SCH (11:11)
[2018-08-21] MEDS: METOPROLOL TARTRATE 25 MG TAB PO SCH ×3 (11:12→20:58)
[2018-08-21] MEDS: PANTOPRAZOLE SODIUM 40 MG TAB PO SCH ×2 (11:12→20:52)
[2018-08-21] MEDS: GABAPENTIN 300 MG CAP PO SCH ×2 (11:12→20:53)
[2018-08-21] MEDS: BACITRACIN OINTMENT 1 PACKET TP SCH ×2 (11:12→20:53)
[2018-08-21] MEDS: PRAMIPEXOLE 0.125 MG TAB PO SCH ×2 (11:12→20:51)
--- NOTE | 2018-08-21 13:52 | PDCARPN ---
Cardiology Progress Note Chief Complaint: abdominal pain Assessment/Plan: Assessment: The patient is a 77 y/o M with a a history of DM and CAD s/p 3v CABG in 2005 admitted with abdominal pain and acute cholecystitis with sepsis. Cards was consulted for a cardiac evaluation prior to a cholecystectomy. He is not very active but did play basketball with his grandchildren the other day without angina. He denies any chest pain. His troponin on admission was minimally elevated and has remained flat peaking at .068. His initial EKG showed anterior Tw inversion which resolved by EKG this AM. A echo today showed preserved LV function with mild LVH and moderate PHTN with RVSP of 60. His last nuclear stress test was in 05/2017 which showed mild inferolateral ischemia which is unchanged from his stress test in 2014 which was done prior to a angiogram. At that time his angiogram showed a patent BRADY to the LAD, and occluded SVG's to the OM1 and OM3 with patent stent in the LCX. He is s/p cholecystectomy POD 2. Yesterday he had one episode of chest pressure which lasted a few seconds and improved with positional change. He has not had any further CP. . Plan: 1. CAD with minimally elevated troponin in the setting of sepsis. He has one short episode of CP yesterday afternoon. He has been CP free since that time. His EKG shows T wave changes in the anterior leads. Continue medical management with Aspirin, Imdur, and Metoprolol. Aspirin resumed. Resume Plavix when felt appropriate by surgery. Recommend outpatient nuclear stress test in 4-6 weeks. 08/21/18 13:48 Subjective: He denies any CP or SOB. He is feeling better every day. Reviewed/Discussed With: family Objective: Vital Signs (8 Hrs) Temp Pulse Resp BP Pulse Ox 08/21/18 11:10 36.9 C 81 19 164/79 H 92 08/21/18 07:37 37.2 C 80 19 139/79 H 94 Intake/Output (24 Hrs) 08/20/18 08/21/18 08/22/18 05:59 05:59 05:59 Intake Total 8440 300 Output Total 1741 1870 425 Balance 6657 -1570 -920 Intake: Oral (ml) 300 IV Intake (ml) 1725 IV Infused (ml) 6715 Albumin 5% 500 ml @ As 2000 Directed IV ONCE ONE Rx#: [id number] Ns 1,000 ml @ 125 mls/hr 4715 IV CONT SUPA Rx#: [id number] Output: Urine (ml) 450 1600 350 Urinal 450 1600 350 Estimated Blood Loss (ml) 1000 GORGE Drain Output (ml) 295 270 75 Right Abdomen Vega 295 270 75 George Other: Weight 99.79 kg Output Comment Urinal unknown amount, pt in preop Number of Voids Toilet 1 Urinal 1 1 Result Diagrams: 08/21/18 04:44 08/21/18 04:44 Cardiac Labs: Cardiac Lab Results (72 Hrs) 08/19/18 08/18/18 05:10 21:55 Troponin I 0.053 H 0.068 H Telemetry: NSR - Physical Exam Constitutional: no apparent distress Cardiovascular: regular rate and rhythm, no murmurs, no rubs, no gallops Peripheral Pulses: 2+: dorsalis-pedis (R), dorsalis-pedis (L) Respiratory: clear to auscultate bilat, reduced air movement Skin: no edema Neurologic: AAOx3 ICD10 Worksheet Patient Problems: Problems Problem Status Onset Abdominal pain Acute
[2018-08-21] MEDS ORDERED: ACETAMINOPHEN 325 MG TAB PO PRN (16:43)
--- NOTE | 2018-08-21 16:44 | ASMTCMCOM ---
CM Note CM Note Notes: Spoke with RN, pt still has some medical issues but has been cleared by PT/OT for home. Anticipate he will dc home w/support of and daughter when medically stable. CM available for any change. DC Plan: Independent Date Signed: 08/21/2018 04:43 PM Electronically Signed By:Rachel Kong RN
[2018-08-21] MEDS: traMADol 50 MG TAB PO PRN ×2 (16:49→23:42)
--- NOTE | 2018-08-21 17:34 | GCON ---
[f rep st] CONSULTATION DATE OF CONSULTATION: 08/21/2018 REFERRING PHYSICIAN: Dr Storm Woodall Acute liver injury. Consultation is for elevated liver tests and abnormal HIDA scan after cholecystectomy. Dear Dr. Woodall: Thank you very kindly for asking me to evaluate the patient n consultation for abnormal liver tests a nd an aberrant HIDA scan that was performed after a laparoscopic cholecystectomy that resulted in an open cholecystectomy for cholelithiasis and acute cholecystitis. It sounds like the surgical interve ntion took quite some time and had to be converted to open cholecystectomy due to a significantly inf lamed gallbladder. The patient had a pre-surgical ultrasound, CT scan and HIDA scan, all demonstrati ng and consistent with acute cholecystitis. Since the surgery, his LFTs have been worsening with a t otal bilirubin today of 4.7 with a direct of 4.0, an AST of 79, an ALT of 135, and an alkaline phosph atase of 154. There was bile in the GORGE drain, or it was at least thought to be bile in the GORGE drain, and so a HIDA scan was performed, which did not demonstrate a biliary leak, but did not show radiotr acer in the common, extrahepatic biliary ductal anatomy or within the small bowel, even up to 4 hours delayed imaging. I am asked to assist with further evaluation and management. Currently, the patient says he actually feels better than he did yesterday. He had a lot of coughing and back pain last night, mostly on the right side in the lumbar area, that he attributed to lying i n bed and from coughing, but which has resolved today. He denies any vomiting or nausea. His abdome n is a bit uncomfortable, but he says it is not too bad. He has not had any fever. I am asked to as sist with further evaluation and management of his acute laboratory abnormalities and abnormal HIDA s can. PAST MEDICAL HISTORY: Significant for coronary artery disease, type 2 diabetes mellitus, hypertensio n, hyperlipidemia, obstructive sleep apnea, nephrolithiasis, peripheral neuropathy, restless legs syn drome. PAST SURGICAL HISTORY: Coronary artery bypass surgery, bilateral total knee arthroplasty, parathyroi dectomy. FAMILY HISTORY: Negative for biliary, liver, or pancreatic illness. MEDICATIONS: On admission included metformin, Mirapex, metoprolol, glimepiride, gabapentin, clopidog rel, Lipitor, aspirin, and allopurinol. ALLERGIES: None known. SOCIAL HISTORY: No tobacco. Rare alcohol. . His children and are present at the [facility]. REVIEW OF SYSTEMS: A review of 10 systems is otherwise negative other than what is noted in the Hist ory of Present Illness. PHYSICAL EXAM: VITAL SIGNS: Blood pressure 164/79, mean arterial pulse is 107, heart rate is 81, re spirations are 19, oxygenation is 92% on room air, temperature is 36.9 with a T-max of 37.2. GENERAL : No acute distress. HEENT: Normocephalic, atraumatic. Sclerae are mildly icteric. Oropharynx is clear. Mucous membranes are bit dry. He does have some dried blood in his nares. NECK: Supple. No jugular venous distention. Parathyroidectomy scars are noted. No carotid bruit. PULMONARY: Dim inished breath sounds at the bases. No rales. He has rhonchorous breath sounds that clear with coug h. CARDIOVASCULAR: Regular rate and rhythm without murmur, rub, or gallop. GI: Previous surgical incision has a dressing in place that has mild serous drainage. The GORGE bulb in the right side has so me serosanguineous discharge that does look a bit dark, and I agree it seemed a bit bilious to me. A BDOMEN: Generally mildly tender with mild distention. Bowel sounds are hypoactive. No rebound or g uarding. EXTREMITIES: Without edema. NEURO: Alert to person, place, and time. Speech and affect are normal. Motor is nonfocal. DATABASE: Laboratories: White blood count 8.3, hematocrit 28.0, platelets are 90. Sodium 141, pota ssium 4.2, chloride 115, bicarbonate 19, BUN 29, creatinine 2.0, glucose 155, calcium is 7.5, total b ilirubin is 4.7 with a conjugated bilirubin of 4.0, AST is 79, ALT 135, alkaline phosphatase 154, tot al protein is 4.6, albumin 2.5, lipase is 82. Laboratories from yesterday included a total bilirubin of 3.7 with a direct of 3.1, AST 84, ALT 123, total protein 4.3, albumin 2.4. Laboratories preoperatively showed a total bilirubin of 1.6, AST 22, ALT 119, alkaline phosphatase 96 , albumin 2.6. Lipase was 47. IMAGING: Workup to date showed a hepatobiliary scan on August 18, 2018, that revealed prompt homogeneou s radiotracer uptake by the liver. The gallbladder never filled, despite IV morphine administration. Small bowel was visualized at [address] scan August 18, 2018, with IV contrast, showed mild atelectasis at both lung bases. Coronary artery calcifications are noted. No focal liver lesio n. The gallbladder had wall thickening, fluid and stranding around the gallbladder. There were gall stones in the dependent gallbladder. Pancreas is unremarkable. Nonobstructive nephrolithiasis in th e inferior poles of both kidneys. Mild free fluid in the pelvis. No biliary ductal dilatation was n oted. HIDA scan postoperatively on August 21, 2018, showed hepatic uptake with no small bowel activity consistent with possible common bile duct obstruction. There was no biliary leak. The radiotracer h as homogeneous uptake within the liver, but no visualization of the common bile duct and no activity beyond the beck hepatis at 4 hours. IMPRESSION: 1. Abdominal pain. 2. Elevated liver tests. 3. Abnormal HIDA scan suggesting common bile duct obstruction, probably near the beck hepatis. 4. Cholelithiasis with cholecystitis status post laparoscopic cholecystectomy turned into open ruiz cystectomy. 5. Acute kidney injury. RECOMMENDATIONS: 1. MRCP today. 2. N.p.o. 3. Monitor LFTs. 4. Consider prophylactic antibiotics in the setting of possible biliary obstruction. 5. We will debate whether an ERCP can be applied to help either correct the likely biliary ductal ob struction; or if the MRCP is not diagnostic for either stone disease or some other problem, perhaps d iagnostically better assessing this. 6. I do not believe that the darker output in the GORGE bulb is actually bile, given the negative HIDA scan, although a small leak may be missed. 7. We will discuss further evaluation and management depending on the MRCP findings. 8. I have discussed the plan with the patient, his and his 2 children, who are present at the [facility] today. I have also discussed the plan with Surgery. /[id number]/MODL
--- NOTE | 2018-08-21 20:09 | SOAPPROG ---
SOAP Progress Note Assessment/Plan: Assessment: PT DOING OK BUT BILIOUS GORGE OUTPUT AND RISING BILI MRCP SHOWS PRETTY DEFINITIVE CBD INJURY ERCP PLANNED FOR TOMORROW BUT MAYBE UNNECESSARY WITH SURGERY LIKELY NEEDED Plan:EVAL IN AM/ RISKS AND OPTIONS FULLY DISCUSSED 08/21/18 20:06 Objective: Vital Signs Temp Pulse Resp BP Pulse Ox 36.9 C 72 18 131/81 H 94 08/21/18 16:00 08/21/18 16:00 08/21/18 16:00 08/21/18 16:00 08/21/18 16:00 Laboratory Results 08/21/18 04:44 08/21/18 04:44 08/20/18 08/21/18 08/22/18 05:59 05:59 05:59 Intake Total 8440 300 50 Output Total 1745 1870 565 Balance 6695 -1570 -515 ICD10 Worksheet Patient Problems: Problems Problem Status Onset Abdominal pain Acute
[2018-08-22] MEDS: NS 1,000 ML IV SCH ×3 (02:38→23:12)
[2018-08-22] MEDS: PIPERACILLIN/TAZO 3.375 GM/DEX 50 ML IV SCH ×4 (02:38→23:10)
[2018-08-22 05:38] LABS: INR 1.12 (0.83-1.16)
[2018-08-22] MEDS: ALLOPURINOL 100 MG TAB PO SCH (08:51)
[2018-08-22] MEDS: ISOSORBIDE MONONITRATE 30 MG TAB.SR PO SCH (08:51)
[2018-08-22] MEDS: PRAMIPEXOLE 0.125 MG TAB PO SCH ×2 (08:51→23:11)
[2018-08-22] MEDS: PANTOPRAZOLE SODIUM 40 MG TAB PO SCH ×2 (08:51→23:11)
[2018-08-22] MEDS: GABAPENTIN 300 MG CAP PO SCH ×2 (08:51→23:31)
[2018-08-22] MEDS: METOPROLOL TARTRATE 25 MG TAB PO SCH ×4 (08:51→23:12)
[2018-08-22] MEDS: BACITRACIN OINTMENT 1 PACKET TP SCH (08:52)
--- NOTE | 2018-08-22 08:53 | HOSPPROG ---
Hospitalist Progress Note Assessment/Plan: 77 yo M pw RUQ pain found to have sepsis and acute cholecystitis. #CBD obstruction: Concern for injury>stone. Bili continues to climb. - ERCP first - Pending above, likely will require surgical intervention. RCRI score of 2, conferring 10.1% 30 day risk of , PR, or cardiac arrest. He is also at risk for further worsening of renal function. With that said, he has been chest pain free, is on appropriate cardiac medications, and on minimal supplemental oxygen. In my opinion, benefits of surgical intervention would outweigh risks. #Acute on chronic cholecystitis - s/p lap->open cholecystectomy 08/19 - GORGE drain per surgery #Sepsis: Physiology better. - Continue zosyn, cultures NGTD #EKATERINA on CKD: Slightly better today, suspect prerenal vs ATN (was hypotensive prior to surgery) - Continue mIVF #Chest pain: One episode 08/20. ECG with anterior TWI, repeat stable. Trop peak 0.06 prior to surgery in setting of sepsis. No WMA on echo. - Monitor #Acute hypoxia 2/2 atelectasis - IS at bedside, OOB #CAD: 3v CABG in 2005, LCx stent 8-9 years ago. Last cath 2018 showed patent BRADY->LAD, occluded SVG->OM1 and OM3, patent LCx stent - Restarted aspirin, continue beta laura - Holding plavix pending any further procedures - Will need outpatient stress test #Pulmonary hypertension: RVSP 60mmHg. Caution with fluids. #DM2: Recent A1c 7.2% - Holding oral meds, continue SSI #QUIANA #Peripheral neuropathy: On gabapentin. #RLS VTE ppx: SCDs Code: full Diet: clears today Dispo: Remain inpatient, ADD pending clinical course Subjective: Better night. Minimal back pain. Some incisional pain when had BM. No n/v. No fevers. No further chest pain. Objective: Vital Signs Temp Pulse Resp BP Pulse Ox 36.8 C 71 24 H 164/91 H 96 08/22/18 07:26 08/22/18 07:26 08/22/18 07:26 08/22/18 07:26 08/22/18 07:26 Laboratory Results 08/22/18 05:00 08/22/18 05:00 08/21/18 08/22/1808/23/19 05:59 05:59 05:59 Intake Total 300 1650 Output Total 1870 1000 280 Balance -1570 650 -280 PT 14.0 SEC (12.0-15.0) 08/22/18 05:00 INR 1.12 (0.83-1.16) 08/22/18 05:00 - Physical Exam Constitutional: no apparent distress Eyes: PERRL Ears, Nose, Mouth, Throat: moist mucous membranes, hearing normal, ears appear normal, no oral mucosal ulcers Cardiovascular: regular rate and rhythym, no murmur, rub, or gallop, No edema Respiratory: no respiratory distress, no rales or rhonchi, reduced air movement (bases) Gastrointestinal: distension, other (midline incision c/d/i, GORGE drain in place) , No tenderness Genitourinary: no bladder fullness, no bladder tenderness, no renal bruits Skin: no rashes or abrasions, no fluctuance, no induration Musculoskeletal: full muscle strength, no muscle tenderness, normal joint ROM Neurologic: AAOx3 Psychiatric: interacting appropriately ICD10 Worksheet Patient Problems: Problems Problem Status Onset Abdominal pain Acute
[2018-08-22] MEDS: ASPIRIN 81 MG CHEWABLE TAB PO SCH (09:08)
--- NOTE | 2018-08-22 09:11 | SOAPPROG ---
RITA Progress Note Assessment/Plan: Assessment/plan: 77 y/o M c cardiac hx involving CABG and coronary stents admitted with acute cholecystitis, cholelithiasis, RUQ pain, elevated LFTs. Fluid responsive sepsis related hypotension. s/p ex laparoscopy, laparotomy with difficult cholecystectomy with Dr. Craig, . POD#3 Bilirubin continues to increase. Up to 5.4 today. MRCP shows likely common bile duct injury. Plan: ERCP today, hope to move it up earlier. There is a small possibility that CBD occlusion is due to a stone, but unlikely. Pt will likely need surgery for bile duct repair- Judith en y hepaticojejunostomy. Hope to do this today, after ERCP. Discussed situation at length with family. Time is of the essence as waiting longer increases scarring and inflammation, making surgery more difficult. Still, there is a chance that we would be unable to perform intended procedure if there is too much inflammation upon entering abdomen. In this case, pt would need percutaneous biliary drain for 6 months before attempting judith en y again. Also discussed possible transfer to [place] to [facility] specialist. Will get ERCP first and then discuss definitive plan. Continue Zosyn. NPO for procedures today. Pt seen and examined with Dr. Woodall. S: Pain controlled. Passing gas. Understands situation and agrees with plan. O: Alert Afebrile RRR No increased wob, CTAB Abdomen soft, incision cdi, GORGE drain with dark serosang drainage. 08/22/18 09:00 Objective: Vital Signs Temp Pulse Resp BP Pulse Ox 36.8 C 71 24 H 164/91 H 96 08/22/18 07:26 08/22/18 07:26 08/22/18 07:26 08/22/18 07:26 08/22/18 07:26 Laboratory Results 08/22/18 05:00 08/22/18 05:00 08/21/18 08/22/18 08/23/18 05:59 05:59 05:59 Intake Total 300 1650 Output Total 1870 1000 280 Balance -1570 650 -280 PT 14.0 SEC (12.0-15.0) 08/22/18 05:00 INR 1.12 (0.83-1.16) 08/22/18 05:00 ICD10 Worksheet Patient Problems: Problems Problem Status Onset Abdominal pain Acute
[2018-08-22] MEDS ORDERED: BUPIVACAINE 0.5% 30 ML SDV ONE (10:17)
[2018-08-22] MEDS: INSULIN LISPRO 100 UNIT/ML SC SCH ×3 (10:17→22:50)
--- NOTE | 2018-08-22 11:20 | SOAPPROG ---
SOAP Progress Note Assessment/Plan: Assessment: 1. Biliary obstruction 2. Jaundice 3. CAD 4. DM 5. CKD Plan: 1. NPO 2. Continue antibiotics 3. ERC today at 15:30 4. Further decision making depending on findings Over 30minutes of time today was spend face to face with the patient and family regarding procedure planing and treatment options. 08/22/18 11:17 Subjective: CC: abdominal pain Jaundice Objective: Vital Signs Temp Pulse Resp BP Pulse Ox 36.8 C 71 24 H 164/91 H 96 08/22/18 07:26 08/22/18 07:26 08/22/18 07:26 08/22/18 07:26 08/22/18 07:26 Laboratory Results 08/22/18 05:00 08/22/18 05:00 08/21/18 08/22/18 08/23/18 05:59 05:59 05:59 Intake Total 300 1650 Output Total 1870 1000 805 Balance -1570 650 -805 PT 14.0 SEC (12.0-15.0) 08/22/18 05:00 INR 1.12 (0.83-1.16) 08/22/18 05:00 Physical Exam - Physical Exam General Appearance: no apparent distress EENT: scleral icterus (R), scleral icterus (L) Neck: supple Respiratory: lungs clear Cardiac/Chest: regular rate, rhythm Abdomen: non-tender, soft, other (Surgical incision c/d/i. GORGE drain), No ascites ICD10 Worksheet Patient Problems: Problems Problem Status Onset Abdominal pain Acute
--- NOTE | 2018-08-22 12:47 | PDCARPN ---
Cardiology Progress Note Chief Complaint: Abdominal pain Assessment/Plan: Assessment: The patient is a 77 y/o M with a a history of DM and CAD s/p 3v CABG in 2005 admitted with abdominal pain and acute cholecystitis with sepsis. Cards was consulted for a cardiac evaluation prior to a cholecystectomy on 08/18. He is not very active but did play basketball with his grandchildren the other day without angina. He denies any chest pain. His troponin on admission was minimally elevated and has remained flat peaking at .068. His EKG shows anterior Tw inversion. A echo this admission showed preserved LV function with mild LVH and moderate PHTN with RVSP of 60. His last nuclear stress test was in 05/2017 which showed mild inferolateral ischemia which is unchanged from his stress test in 2014 which was done prior to a angiogram. At that time his angiogram showed a patent BRADY to the LAD, and occluded SVG's to the OM1 and OM3 with patent stent in the LCX. He is s/p cholecystectomy POD 3. He had one 5 second episode of CP two days ago which resolved with positional change. He denies any further CP. MRCP showed likely bile duct injury. Plan for ERCP today and possible surgery to repair the common bile duct. Plan: 1. CAD with minimally elevated troponin in the setting of sepsis. He has anterior T wave changes but denies any symptoms of angina and his echo showed preserved LV function. He can proceed with surgery as planned knowing that he is at increased risk for perioperative complications. The risk can be minimized by continuing Metoprolol. Resume Aspirin and Plavix when it is felt to be acceptable by the surgeon. Plan for outpatient nuclear stress test in 4- 6 weeks. 08/22/18 12:51 Subjective: He denies any CP or SOB. He is having diffuse abdominal pain. Ambulated in his room today without CP or SOB. Reviewed/Discussed With: multidisciplinary team Objective: Vital Signs (8 Hrs) Temp Pulse Resp BP Pulse Ox 08/22/18 11:25 36.9 C 67 24 H 155/88 H 93 08/22/18 07:26 36.8 C 71 24 H 164/91 H 96 Intake/Output (24 Hrs) 08/21/18 08/22/18 08/23/18 05:59 05:59 05:59 Intake Total 300 1650 Output Total 1870 1000 845 Balance -1570 650 -845 Intake: Oral (ml) 300 50 IV Intake (ml) 1600 Output: Urine (ml) 1600 650 700 Urinal 1600 650 700 GORGE Drain Output (ml) 270 350 145 Right Abdomen Vega 270 350 145 George Other: Number of Voids Toilet 1 Urinal 1 2 Number of Stools Toilet 1 Result Diagrams: 08/22/18 05:00 08/22/18 05:00 Telemetry: NSR with rare PVC's. - Physical Exam Constitutional: no apparent distress, other (jaundice) Cardiovascular: regular rate and rhythm, no murmurs, no rubs, no gallops Respiratory: clear to auscultate bilat, no crackles, no wheezes Skin: no edema Neurologic: AAOx3 ICD10 Worksheet Patient Problems: Problems Problem Status Onset Abdominal pain Acute
[2018-08-22] MEDS ORDERED: IOTHALAMATE MEG (CONRAY) 50 ML VIAL IV ONE (15:21)
[2018-08-22] MEDS ORDERED: LR 1,000 ML IV ONE (15:56)
--- NOTE | 2018-08-22 16:09 | PDANEPAE ---
ANE History of Present Illness biliary obstruction ANE Past Medical History - Cardiovascular History Hx Hypertension: No Hx Arrhythmias: No Hx Chest Pain: No Hx Coronary Artery / Peripheral Vascular Disease: Yes Hx CHF / Valvular Disease: No Hx Palpitations: No - Pulmonary History Hx Oxygen in Use at Home: No Hx Sleep Apnea: Yes Sleep Apnea Screening Result - Last Documented: Positive - Endocrine History Hx Diabetes: Yes Hypothyroid: No Hyperthyroid: No Obesity: no - Renal History Hx Renal Disorders: Yes Renal History Comment: FÁTIMA - Liver History Hx Hepatic Disorders: Yes - Chronic Pain History Chronic Pain: No - Surgical History Prior Surgeries: CABG/stent. knee. GB ANE Review of Systems Review of systems is: negative Review of Systems: ANE Patient History - Allergies Allergies/Adverse Reactions: codeine Allergy (Verified 08/22/18 14:51) Abdominal Pain - Home Medications Home medications: home medication list seen and reviewed Home Medications: Allopurinol [Allopurinol 100 MG (*)] 200 mg PO DAILY 08/17/18 [Last Taken ] Aspirin EC [Aspirin EC 81 mg (*)] 81 mg PO DAILY 08/17/18 [Last Taken 08/17/18] Atorvastatin Calcium [Lipitor 20 mg (*)] 20 mg PO MOWEFR@1800 08/17/18 [Last Taken 08/16/18] Clopidogrel Bisulfate [Clopidogrel] 75 mg PO DAILY 08/17/18 [Last Taken 08:00] Gabapentin [Neurontin 300 MG (*)] 600 mg PO BID 08/17/18 [Last Taken 08/17/18 08 :00] Glimepiride [Amaryl 2 MG (*)] 2 mg PO DAILY 08/17/18 [Last Taken 08/10/18] Metoprolol Succinate [Metoprolol Succinate] 12.5 mg PO DAILY 08/17/18 [Last Taken 08/17/18] Pramipexole Di-HCl [Mirapex 0.125 mg (*)] 0.125 mg PO BID 08/17/18 [Last Taken 08/17/18 08:00] metFORMIN HCL [Metformin HCl] 500 mg PO BIDMEAL 08/17/18 [Last Taken 08/17/18 08 :00] Latanoprost 0.005% [Xalatan 0.005% (*)] 1 drops EACHEYE HS 08/22/18 [Last Taken Unknown] - NPO status NPO Status: no food or drink >8 hours NPO Since - Liquids (Date): 08/22/18 NPO Since - Liquids (Time): 00:00 NPO Since - Solids (Date): 08/22/18 NPO Since - Solids (Time): 00:00 - Anes Hx Anes Hx: no prior problems - Smoking Hx Smoking Status: Never smoked - Alcohol Use Alcohol Use: Rarely - Family Anes Hx Family Anes Hx: none ANE Labs/Vital Signs - Labs Result Diagrams: 08/22/18 05:00 08/22/18 05:00 - Vital Signs Blood Pressure: 166/80 Heart Rate: 73 Respiratory Rate: 25 O2 Sat (%): 91 Height: 195.58 cm Weight: 99.79 kg ANE Physical Exam - Airway Neck exam: FROM Mallampati Score: Class 2 Mouth exam: normal dental/mouth exam - Pulmonary Pulmonary: no respiratory distress, clear to auscultation - Cardiovascular Cardiovascular: regular rate and rhythym, no murmur, rub, or gallop - ASA Status ASA Status: III ANE Anesthesia Plan Anesthesia Plan: general endotracheal anesthesia
[2018-08-22] MEDS ORDERED: PROPOFOL 200 MG/20 ML VIAL ONE (16:10)
[2018-08-22] MEDS ORDERED: fentaNYL 100 MCG/2 ML INJ ONE ×2 (16:11→20:28)
[2018-08-22] MEDS ORDERED: ROCURONIUM 50 MG/5 ML VIAL ONE ×2 (16:11→17:15)
[2018-08-22] MEDS ORDERED: ONDANSETRON 4 MG/2 ML VIAL ONE ×2 (16:47→19:13)
[2018-08-22] MEDS ORDERED: SUGAMMADEX SODIUM 200 MG/2 ML VIAL IVP ONE ×2 (16:47→19:22)
[2018-08-22] MEDS ORDERED: ePHEDrine SULFATE 25 MG/5 ML SYR ONE (17:14)
--- NOTE | 2018-08-22 17:30 | SOAPPROG ---
RITA Progress Note Assessment/Plan: Assessment: PT DOING OK BUT BILIOUS GORGE OUTPUT AND RISING BILI MRCP SHOWS PRETTY DEFINITIVE CBD INJURY ERCP PLANNED FOR TOMORROW BUT MAYBE UNNECESSARY WITH SURGERY LIKELY NEEDED Plan:EVAL IN AM/ RISKS AND OPTIONS FULLY DISCUSSED 08/21/18 20:06 08/22/18 17:27 ERCP SHOWS DIVIDED CBD/ WILL NEED URGENT REPAIR/ RISKS AND OPTIONS FULLY DISCUSSED WITH FAMILY WHO WISHES TO PROCEED PLAN ; urgent bile duct repair Objective: Vital Signs Temp Pulse Resp BP Pulse Ox 36.8 C 73 25 H 166/80 H 91 L 08/22/18 15:14 08/22/18 16:09 08/22/18 16:09 08/22/18 16:09 08/22/18 16:09 Laboratory Results 08/22/18 05:00 08/22/18 05:00 08/21/18 08/22/18 08/23/18 05:59 05:59 05:59 Intake Total 300 1650 Output Total 1870 1000 1125 Balance -1570 650 -1125 PT 14.0 SEC (12.0-15.0) 08/22/18 05:00 INR 1.12 (0.83-1.16) 08/22/18 05:00 ICD10 Worksheet Patient Problems: Problems Problem Status Onset Abdominal pain Acute
[2018-08-22] MEDS ORDERED: fentaNYL 250 MCG/5 ML INJ ONE (17:32)
[2018-08-22] MEDS ORDERED: HYDROmorphONE/DILAUDID 1 MG/ML INJ IVP PRN (19:00)
[2018-08-22] MEDS ORDERED: LR 500 ML IV PRN (19:00)
[2018-08-22] MEDS ORDERED: NALOXONE HCL 0.4 MG/ML INJ IVP PRN ×2 (19:00→19:42)
[2018-08-22] MEDS ORDERED: fentaNYL 100 MCG/2 ML INJ IVP PRN (19:00)
[2018-08-22] MEDS ORDERED: IOPAMIDOL (ISOVUE-370) 150 ML BTL IV ONE (19:08)
[2018-08-22] MEDS ORDERED: HYDROmorphONE/DILAUDID 6 MG/30 ML PCA IV PRN (19:42)
--- NOTE | 2018-08-22 19:42 | POSTOPPROG ---
Post Op Note Date of Operation: 08/22/18 Surgeon: Maxwell Woodall Mixer Operator Tablets: Blaise Anesthesiologist: Naina Anesthesia: GET(General Endotracheal) Pre-op Diagnosis: Bile duct injury Post-op Diagnosis: Same Indication: same Procedure: Open repair of common bile duct using T-tube Findings: Ligated common bile duct Inf/Abcess present in the surg proc area at time of surgery?: No Depth: Organ Space EBL: 50-100 Bowel Protocol: N/A Clean Closure Performed: N/A Drains: Vega George, Other (T-tube)
--- NOTE | 2018-08-22 20:07 | POSTANESTH ---
Post Anesthetic Evaluation Cardiovascular Status: Normal, Stable Respiratory Status: Normal, Stable Level of Consciousness/Mental Status: Can Participate in Eval Pain Control: Adequate, Prn Tx Ordered Nausea/Vomiting Control: Adequate, Prn Tx Ordered Complications Possibly Related to Anesthesia: None Noted
[2018-08-22] MEDS ORDERED: LATANOPROST 0.005% 2.5 ML OPHT DROPS EACHEYE SCH (21:00)
[2018-08-22] MEDS: PANTOPRAZOLE SODIUM 40 MG VIAL IVP SCH (23:11)
[2018-08-22] MEDS ORDERED: ORAL BALANCE GEL TUBE PO PRN (23:30)
[2018-08-23] MEDS: LATANOPROST 0.005% 2.5 ML OPHT DROPS EACHEYE SCH ×2 (01:52→20:03)
[2018-08-23] MEDS: HYDROmorphONE/DILAUDID 1 MG/ML INJ IVP PRN ×2 (01:53→09:32)
[2018-08-23] MEDS: BACITRACIN OINTMENT 1 PACKET TP SCH ×3 (01:54→20:04)
[2018-08-23] MEDS: PIPERACILLIN/TAZO 3.375 GM/DEX 50 ML IV SCH ×4 (04:26→20:03)
[2018-08-23] MEDS: NS 1,000 ML IV SCH (04:37)
[2018-08-23 04:42] LABS: PLATELET COUNT 140 10^3/uL (150-400)
[2018-08-23] MEDS: ISOSORBIDE MONONITRATE 30 MG TAB.SR PO SCH (08:37)
[2018-08-23] MEDS: ALLOPURINOL 100 MG TAB PO SCH (08:41)
[2018-08-23] MEDS: INSULIN LISPRO 100 UNIT/ML SC SCH ×3 (08:41→18:00)
[2018-08-23] MEDS: GABAPENTIN 300 MG CAP PO SCH ×2 (08:42→20:03)
[2018-08-23] MEDS: METOPROLOL TARTRATE 25 MG TAB PO SCH ×3 (08:42→20:03)
[2018-08-23] MEDS: PANTOPRAZOLE SODIUM 40 MG VIAL IVP SCH ×2 (08:42→20:03)
[2018-08-23] MEDS: CLOPIDOGREL BISULFATE 75 MG TAB PO SCH (08:50)
[2018-08-23] MEDS: PRAMIPEXOLE 0.125 MG TAB PO SCH ×2 (09:33→20:03)
--- NOTE | 2018-08-23 10:49 | GPN ---
[f rep st] PROCEDURE NOTE DATE OF PROCEDURE: 08/22/2018 NAME OF PROCEDURE: ERCP with biliary sphincterotomy, extraction of stone. INDICATION: The patient is a 77-year-old male who presents for evaluation of abnormal imaging. He had a recent complicated open cholecystectomy and afterwards has had increased liver function tests. On MRCP and HIDA scan, he is noted to have a obstruction of the common bile duct. He presents for further evaluation. CONSENT: Risks, benefits, and alternatives of the procedure were discussed in great detail with the patient. Risk of infection, bleeding, perforation, pancreatitis, and sedation were discussed. All questions answered. Informed consent was obtained. MEDICATIONS: General anesthesia. Please see Anesthesia record for details. ESTIMATED BLOOD LOSS: Insignificant. ERCP EXAM: The Olympus duodenoscope was introduced into the mouth and advanced to the second portion of duodenum. The ampulla was brought into view and was noted to be located adjacent to a small diverticulum. Using a [place] [employer] and a 0.035 inch wire, wire was advanced into the common bile duct on the first attempt. A limited injection was made to confirm positioning. A 1 cm sphincterotomy was performed and a balloon was then used for occlusion cholangiogram. There was filling of the common bile duct with complete obstruction very close to a surgical clip. The wire could not be advanced at this point and injection did not reveal any filling above this point. The flow of contrast was adequate with good visualization of the common bile duct only. I interpreted the films in real time. A balloon sweep was made with the extraction of a 4 mm stone. IMPRESSION: 1. Complete cut-off of the common bile duct close to a clip. 2. Removal of a CBD stone. RECOMMENDATIONS: 1. Defer to Surgery. 2. N.p.o. /[id number]/MODL MTDD
--- NOTE | 2018-08-23 12:41 | SOAPPROG ---
[facility] Progress Note Assessment/Plan: Assessment/plan: 77 y/o M c cardiac hx involving CABG and coronary stents admitted with acute cholecystitis, cholelithiasis, RUQ pain, elevated LFTs. Fluid responsive sepsis related hypotension. s/p ex laparoscopy, laparotomy with difficult cholecystectomy with Dr. Craig, . POD#4 Now s/p open repair of common bile duct POD #1 Pain. Well controlled on iv dilaudid pushes. Good bowel sounds. Will likely pull NG tube later today. Biliary drain with 355cc out. GORGE drain with serosanguinous drainage. Bilirubin down to 2.4 today. Continue to hold plavix. Dispo: downgrade to SDU. S: Feeling well. Very grateful. Pain well controlled. O: Alert Afebrile, VSS NG tube in place. RRR CTAB, no increased WOB Abdomen: soft, attp, normoactive BS, dressing cdi, GORGE and biliary drains in place 08/23/18 12:33 Objective: Vital Signs Temp Pulse Resp BP Pulse Ox 36.9 C 76 18 96/47 L 94 08/23/18 08:00 08/23/18 12:00 08/23/18 12:00 08/23/18 12:00 08/23/18 12:00 Laboratory Results 08/23/18 04:30 08/23/18 04:30 08/22/18 08/23/18 08/24/18 05:59 05:59 05:59 Intake Total 1650 767 Output Total 1000 2220 Balance 650 -1453 PT 14.0 SEC (12.0-15.0) 08/22/18 05:00 INR 1.12 (0.83-1.16) 08/22/18 05:00 ICD10 Worksheet Patient Problems: Problems Problem Status Onset Abdominal pain Acute
--- NOTE | 2018-08-23 13:52 | ASMTCMCOM ---
CM Note CM Note Notes: Patient went for surgical procedure today. OT/PT are now recommending SNF rehab for the patient. CM to meet with patient when he is able to see if he is interested in rehab at d/c. CM following. Date Signed: 08/23/2018 01:51 PM Electronically Signed By:Brie Kan LCSW
--- NOTE | 2018-08-23 14:00 | PDCARPN ---
Cardiology Progress Note Chief Complaint: Abdominal pain. Assessment/Plan: Assessment: The patient is a 77 y/o M with a a history of DM and CAD s/p 3v CABG in 2005 admitted with abdominal pain and acute cholecystitis with sepsis. Cards was consulted for a cardiac evaluation prior to a cholecystectomy on 08/18. He is not very active but did play basketball with his grandchildren the other day without angina. He denies any chest pain. His troponin on admission was minimally elevated and has remained flat peaking at .068. His EKG shows anterior Tw inversion. A echo this admission showed preserved LV function with mild LVH and moderate PHTN with RVSP of 60. His last nuclear stress test was in 05/2017 which showed mild inferolateral ischemia which is unchanged from his stress test in 2014 which was done prior to a angiogram. At that time his angiogram showed a patent BRADY to the LAD, and occluded SVG's to the OM1 and OM3 with patent stent in the LCX. He is s/p cholecystectomy which was complicated by common bile duct injury requiring repair on 08/22. He denies any CP or SOB. Plan: 1. CAD with minimally elevated troponin in the setting of sepsis. He has anterior T wave changes but denies any symptoms of angina and his echo showed preserved LV function. He is anemic with a H/H of 7.8/22.8. With his history of CAD and EKG changes consider transfusion. Plan for out patient nuclear stress test in 6 weeks and follow up with Dr. Wharton. Continue medical management with Metoprolol and Imdur. Resume Aspirin and Plavix when felt to be safe by surgery. 2. Acute on chronic renal failure- prerenal? Consider transfusion. 3. Cholecystectomy complicated by common bile duct injury requiring repair. 08/23/18 14:20 Subjective: He denies any CP or SOB. He feels better then he has in a days. Objective: Vital Signs (8 Hrs) Temp Pulse Resp BP Pulse Ox 08/23/18 12:00 76 18 96/47 L 94 08/23/18 08:42 75 124/66 H 08/23/18 08:37 124/66 H 08/23/18 08:00 36.9 C 74 16 124/66 H 94 08/23/18 06:00 37.0 C 75 19 99/65 L 93 Intake/Output (24 Hrs) 08/22/18 08/23/18 08/24/18 05:59 05:59 05:59 Intake Total 1650 767 150 Output Total 1000 2220 610 Balance 650 -5813 -460 Intake: Oral (ml) 50 0 150 IV Intake (ml) 1600 IV Infused (ml) 767 Ns 1,000 ml @ 125 mls/hr 767 IV CONT SUPA Rx#: [id number] Output: Urine (ml) 650 1520 400 Catheter 570 400 Urinal 650 950 NG Tube Output (ml) 20 Left Naris 20 Biliary Drain Output (ml) 325 190 Biliary 325 190 GORGE Drain Output (ml) 350 355 20 Right Abdomen Vega 350 355 20 George Other: Weight 99.79 kg Number of Voids Toilet 1 Urinal 2 Number of Stools Catheter 0 Toilet 1 Result Diagrams: 08/23/18 04:30 08/23/18 04:30 Telemetry: NSR - Physical Exam Constitutional: no apparent distress Cardiovascular: regular rate and rhythm, no murmurs, no rubs, no gallops Respiratory: clear to auscultate bilat Skin: no edema Neurologic: AAOx3 ICD10 Worksheet Patient Problems: Problems Problem Status Onset Abdominal pain Acute
--- NOTE | 2018-08-23 14:11 | HOSPPROG ---
Hospitalist Progress Note Assessment/Plan: 77 yo M pw RUQ pain found to have sepsis and acute cholecystitis. #CBD injury s/p perc biliary drain 08/22 - bilirubin down-trending, monitor - will need definitive surgery in several months - GORGE drain also in place - pain controlled on current regimen #Acute on chronic cholecystitis s/p lap->open cholecystectomy 08/19 #Sepsis: Physiology resolved. - Continue zosyn (plan for 7-10 days, currently day 6), cultures NGTD #EKATERINA on CKD: Slightly better today, suspect prerenal vs ATN (was hypotensive prior to surgery) - Continue mIVF, monitor #Chest pain: One episode 08/20. ECG with anterior TWI, repeat stable. Trop peak 0.06 prior to surgery in setting of sepsis. No WMA on echo. - Monitor #Acute hypoxia 2/2 atelectasis - IS at bedside, OOB #CAD: 3v CABG in 2005, LCx stent 8-9 years ago. Last cath 2018 showed patent BRADY->LAD, occluded SVG->OM1 and OM3, patent LCx stent - Restarted aspirin, continue beta laura, holding plavix - Will need outpatient stress test #Pulmonary hypertension: RVSP 60mmHg. Caution with fluids. #DM2: Recent A1c 7.2% - Holding oral meds, continue SSI #QUIANA #Peripheral neuropathy: On gabapentin. #RLS VTE ppx: SCDs Code: full Diet: NG tube in place, likely out later today. Once out, adat. Dispo: Remain inpatient in SDU, possibly floor this evening or tomorrow. ADD pending clinical course. Subjective: ERCP then ex lap yesterday. Now with perc biliary drain. Had some confusion post-op so came back to ICU. Doing quite well today. Appreciative of care. Minimal abdominal pain. No difficulty breathing or chest pain. Objective: Vital Signs Temp Pulse Resp BP Pulse Ox 36.9 C 76 18 96/47 L 94 08/23/18 08:00 08/23/18 12:00 08/23/18 12:00 08/23/18 12:00 08/23/18 12:00 Laboratory Results 08/23/18 04:30 08/23/18 04:30 08/22/18 08/23/18 08/24/18 05:59 05:59 05:59 Intake Total 1650 767 150 Output Total 1000 2220 610 Balance 494 -6752 -446 PT 14.0 SEC (12.0-15.0) 08/22/18 05:00 INR 1.12 (0.83-1.16) 08/22/18 05:00 - Physical Exam Constitutional: no apparent distress Eyes: PERRL Ears, Nose, Mouth, Throat: dry mucous membranes Cardiovascular: regular rate and rhythym, no murmur, rub, or gallop, No edema Respiratory: no respiratory distress, no rales or rhonchi, clear to auscultation Gastrointestinal: other (midline incision c/di/i) Genitourinary: copeland in urethra Skin: no rashes or abrasions, no fluctuance, no induration Neurologic: AAOx3 Psychiatric: interacting appropriately ICD10 Worksheet Patient Problems: Problems Problem Status Onset Abdominal pain Acute
[2018-08-24] MEDS: PIPERACILLIN/TAZO 3.375 GM/DEX 50 ML IV SCH ×4 (01:17→19:45)
[2018-08-24] MEDS: NS 1,000 ML IV SCH (01:17)
[2018-08-24] MEDS: INSULIN LISPRO 100 UNIT/ML SC SCH ×3 (08:07→18:09)
[2018-08-24] MEDS: ISOSORBIDE MONONITRATE 30 MG TAB.SR PO SCH (08:08)
[2018-08-24] MEDS: BACITRACIN OINTMENT 1 PACKET TP SCH ×2 (08:08→20:13)
[2018-08-24] MEDS: PANTOPRAZOLE SODIUM 40 MG VIAL IVP SCH ×2 (08:08→20:10)
[2018-08-24] MEDS: ALLOPURINOL 100 MG TAB PO SCH (08:08)
[2018-08-24] MEDS: PRAMIPEXOLE 0.125 MG TAB PO SCH ×2 (08:09→20:10)
[2018-08-24] MEDS: METOPROLOL TARTRATE 25 MG TAB PO SCH ×3 (08:09→20:10)
[2018-08-24] MEDS: GABAPENTIN 300 MG CAP PO SCH ×2 (08:09→20:10)
--- NOTE | 2018-08-24 10:29 | HOSPPROG ---
Hospitalist Progress Note Assessment/Plan: 77 yo M pw RUQ pain found to have sepsis and acute cholecystitis s/p difficult open ruiz 08/19 complicated by CBD injury. #CBD injury s/p perc biliary drain 08/22: Bilirubin down-trending - will need definitive surgery in several months - GORGE drain also in place, minimal output #Acute on chronic cholecystitis s/p lap->open cholecystectomy 08/19 - pain controlled on current regimen - continue zosyn (plan for 10 days, currently day 7), cultures NGTD #EKATERINA on CKD: Suspect prerenal/ATN, making good urine - continue mIVF, monitor #Anemia: Post-op and dilutional. No e/o bleeding - S/p 1u PRBC 08/23, check B12 (macrocytic), monitor h/h daily #Sepsis: Physiology resolved. #Chest pain: One episode 08/20. ECG with anterior TWI, repeat stable. Trop peak 0.06 prior to surgery in setting of sepsis. No WMA on echo. - Monitor #Acute hypoxia 2/2 atelectasis - IS at bedside, OOB #CAD: 3v CABG in 2005, LCx stent 8-9 years ago. Last cath 2018 showed patent BRADY->LAD, occluded SVG->OM1 and OM3, patent LCx stent - Restarted aspirin, continue beta laura, holding plavix - Will need outpatient stress test #Pulmonary hypertension: RVSP 60mmHg. Caution with fluids. #DM2: Recent A1c 7.2% - Holding oral meds, continue SSI #QUIANA: Doesn't use cpap #Peripheral neuropathy: On gabapentin. #RLS #Deconditioning: PT/OT recommending SNF, CM aware VTE ppx: SCDs Code: full Diet: clears today Dispo: Remain inpatient, possibly to floor this evening or tomorrow. ADD pending clinical course. Subjective: NT tube out yesterday. Slept very well. No abdominal pain. Passing gas. No fevers. No chest pain. Objective: Vital Signs Temp Pulse Resp BP Pulse Ox 36.7 C 66 23 H 134/55 H 94 08/24/18 07:34 08/24/18 08:09 08/24/18 07:34 08/24/18 08:09 08/24/18 07:34 Microbiology 08/18/18 14:41 Blood Culture - Final Blood 08/18/18 14:35 Blood Culture - Final Blood Laboratory Results 08/24/18 05:21 08/24/18 05:21 08/23/18 08/24/18 08/25/18 05:59 05:59 05:59 Intake Total 767 2998 Output Total 2220 2220 Balance -1453 778 PT 14.0 SEC (12.0-15.0) 08/22/18 05:00 INR 1.12 (0.83-1.16) 08/22/18 05:00 - Physical Exam Constitutional: no apparent distress Eyes: PERRL, anicteric sclera Ears, Nose, Mouth, Throat: moist mucous membranes, hearing normal, ears appear normal, no oral mucosal ulcers Cardiovascular: regular rate and rhythym, no murmur, rub, or gallop, No edema Respiratory: no respiratory distress, no rales or rhonchi, reduced air movement (bases) Gastrointestinal: other (midline incision covered, GORGE and biliary drain in place ) Genitourinary: copeland in urethra Skin: no rashes or abrasions, no fluctuance, no induration Musculoskeletal: generalized weakness Neurologic: AAOx3 Psychiatric: interacting appropriately ICD10 Worksheet Patient Problems: Problems Problem Status Onset Abdominal pain Acute
--- NOTE | 2018-08-24 10:41 | SOAPPROG ---
SOAP Progress Note Assessment/Plan: Assessment: 77yo M s/p lap ruiz, duct injury s/p open repair over T-tube. - VSS, HDs - pain is appropriate - T tube with bilious drainag, continue to gravity, will discuss clamping in future - GORGE bloody, but NO BILE staining apparent - clear liquids, cont this today - LFTs are down-trending, cont to trend - making slow progress but reassuring. Plan: 08/24/18 10:39 Subjective: feels well, pain is controlled. Objective: Vital Signs Temp Pulse Resp BP Pulse Ox 36.7 C 66 23 H 134/55 H 94 08/24/18 07:34 08/24/18 08:09 08/24/18 07:34 08/24/18 08:09 08/24/18 07:34 Microbiology 08/18/18 14:41 Blood Culture - Final Blood 08/18/18 14:35 Blood Culture - Final Blood Laboratory Results 08/24/18 05:21 08/24/18 05:21 08/23/18 08/24/18 08/25/18 05:59 05:59 05:59 Intake Total 767 2998 Output Total 2220 2220 Balance -1453 778 PT 14.0 SEC (12.0-15.0) 08/22/18 05:00 INR 1.12 (0.83-1.16) 08/22/18 05:00 ICD10 Worksheet Patient Problems: Problems Problem Status Onset Abdominal pain Acute
--- NOTE | 2018-08-24 11:23 | PDCARPN ---
Cardiology Progress Note Chief Complaint: Abdominal discomfort Assessment/Plan: Assessment: The patient is a 77 y/o M with a a history of DM and CAD s/p 3v CABG in 2005 admitted with abdominal pain and acute cholecystitis with sepsis. Cards was consulted for a cardiac evaluation prior to a cholecystectomy on 08/18. He is not very active but did play basketball with his grandchildren the other day without angina. He denies any chest pain. His troponin on admission was minimally elevated and has remained flat peaking at .068. His EKG shows anterior Tw inversion. A echo this admission showed preserved LV function with mild LVH and moderate PHTN with RVSP of 60. His last nuclear stress test was in 05/2017 which showed mild inferolateral ischemia which is unchanged from his stress test in 2014 which was done prior to a angiogram. At that time his angiogram showed a patent BRADY to the LAD, and occluded SVG's to the OM1 and OM3 with patent stent in the LCX. He is s/p cholecystectomy which was complicated by common bile duct injury requiring repair on 08/22. He denies any CP or SOB. Plan: 1. CAD with minimally elevated troponin in the setting of sepsis. He has anterior T wave changes but denies any symptoms of angina and his echo showed preserved LV function. Plan for out patient nuclear stress test in 6 weeks and follow up with Dr. Wharton. Continue medical management with Metoprolol and Imdur. Aspirin resumed. Plavix will be resumed when felt to be safe by surgery. 2. Acute on chronic renal failure- prerenal? Consider transfusion. 3. Cholecystectomy complicated by common bile duct injury requiring repair. 4. Anemia s/p 1u PRBC. H/H is stable 08/24/18 11:21 Subjective: He denies any CP or SOB. He is having abdominal discomfort. Objective: Vital Signs (8 Hrs) Temp Pulse Resp BP Pulse Ox 08/24/18 08:09 66 134/55 H 08/24/18 08:08 134/75 H 08/24/18 07:34 36.7 C 68 23 H 144/73 H 94 08/24/18 05:30 36.8 C 62 22 H 94 08/24/18 04:00 68 15 114/55 L 94 Intake/Output (24 Hrs) 08/23/18 08/24/18 08/25/18 05:59 05:59 05:59 Intake Total 767 2998 Output Total 2220 2220 Balance -1453 778 Intake: Oral (ml) 0 640 IV Infused (ml) 2019 Ns 1,000 ml @ 125 mls/hr 2019 IV CONT SUPA Rx#: [id number] Packed Red Blood Cells ( 338 ml) Output: Urine (ml) 1520 1600 Catheter 570 1600 Urinal 950 NG Tube Output (ml) 20 Left Naris 20 Biliary Drain Output (ml) 325 575 Biliary 325 575 GORGE Drain Output (ml) 355 45 Right Abdomen Vega 355 45 George Other: Weight 99.79 kg 116 kg Number of Voids Urinal 2 Number of Stools Catheter 0 0 Result Diagrams: 08/24/18 05:21 08/24/18 05:21 Telemetry: NSR - Physical Exam Constitutional: no apparent distress Cardiovascular: regular rate and rhythm, no murmurs, no rubs, no gallops Respiratory: clear to auscultate bilat, no crackles, no wheezes Skin: no edema Neurologic: AAOx3 ICD10 Worksheet Patient Problems: Problems Problem Status Onset Abdominal pain Acute
--- NOTE | 2018-08-24 12:22 | ASMTCMCOM ---
CM Note CM Note Notes: CM met with pt and his daughter to discuss SNF options. Provided with [facility]. Pt prefers a facility close to the family in [place]. Are considering [facility] and [facility] and plan on visiting and letting CM know their preferance. CM initiated Referrals via [employer]. Pt has [employer] insurance, may need Insurance Prior Authorization. Family is aware and will make choice soon. CM to follow. Plan: SNF pending family choice/acceptance Date Signed: 08/24/2018 12:22 PM Electronically Signed By:NICOLE Isbell
--- NOTE | 2018-08-24 16:11 | PDINTPN ---
Press Set Up Progress Note Assessment/Plan: Assessment: Acute on chronic cholecystitis. Status post cholecystectomy. Had subsequent bile duct injury with repair. Drain in place. Doing well clinically. Bilirubin decreasing. Surgery following. On Zosyn. Sepsis: Resolved. Elevated creatinine: 2 today, slightly up. Likely secondary to ATN from sepsis /hypotension. Non-oliguric.. History of coronary artery disease/CABG. No evidence of acute coronary issues at this time. For outpatient follow-up.. Anemia: Hematocrit 24, status post 1 unit of PRBCs yesterday. Thrombocytopenia: Resolving. Type 2 diabetes: Glucoses stable. On sliding scale insulin. Prophylaxis: On pantoprazole. SCDs. Consider subcu heparin: Per surgery. Plan: Continue care. Continue biliary drainage. Continue antibiotics and other medications. Follow CBC, laboratory. Can transfer to medical-surgical status/PCU. 20 min of critical care time spent directly with the patient. Discussed with the patient and his daughter, nursing, and the ICU multi disciplinary team. Subjective: Doing well, no complaints. Denies significant pain. Denies shortness of breath. Objective: Vital Signs Temp Pulse Resp BP Pulse Ox 36.6 C 70 19 126/64 H 94 08/24/18 11:33 08/24/18 11:33 08/24/18 11:33 08/24/18 11:33 08/24/18 11:33 Microbiology 08/18/18 14:41 Blood Culture - Final Blood 08/18/18 14:35 Blood Culture - Final Blood Laboratory Results 08/24/18 05:21 08/24/18 05:21 08/23/18 08/24/18 08/25/18 05:59 05:59 05:59 Intake Total 767 2998 Output Total 2220 2220 200 Balance -1453 778 -200 PT 14.0 SEC (12.0-15.0) 08/22/18 05:00 INR 1.12 (0.83-1.16) 08/22/18 05:00 Renal ultrasound: No hydronephrosis Physical Exam - Physical Exam General Appearance: alert, no apparent distress, thin EENT: PERRL/EOMI, other (Nasal cannula in place at 1-2 L) Neck: normal inspection Respiratory: lungs clear (Anteriorly) Cardiac/Chest: regular rate, rhythm, systolic murmur, No gallop Abdomen: non-tender, soft, other (Drain in place), No normal bowel sounds ( Decreased, present) Male Genitalia: other Rectal: other (Catheter in place, good urine output) Skin: normal color, warm/dry Extremities: No pedal edema Neuro/Psych: no motor/sensory deficits, No cognition abnormalities ICD10 Worksheet Patient Problems: Problems Problem Status Onset Abdominal pain Acute
[2018-08-24] MEDS: traMADol 50 MG TAB PO PRN ×2 (16:14→21:48)
[2018-08-24] MEDS: LATANOPROST 0.005% 2.5 ML OPHT DROPS EACHEYE SCH (20:13)
[2018-08-25] MEDS: PIPERACILLIN/TAZO 3.375 GM/DEX 50 ML IV SCH ×4 (01:11→20:07)
[2018-08-25] MEDS: NS 1,000 ML IV SCH ×2 (05:18→22:21)
[2018-08-25] MEDS: INSULIN LISPRO 100 UNIT/ML SC SCH ×3 (08:23→19:06)
[2018-08-25] MEDS: METOPROLOL TARTRATE 25 MG TAB PO SCH ×3 (08:42→22:08)
[2018-08-25] MEDS: GABAPENTIN 300 MG CAP PO SCH ×2 (08:42→20:07)
[2018-08-25] MEDS: ISOSORBIDE MONONITRATE 30 MG TAB.SR PO SCH (08:42)
[2018-08-25] MEDS: BACITRACIN OINTMENT 1 PACKET TP SCH ×2 (08:42→20:32)
[2018-08-25] MEDS: CLOPIDOGREL BISULFATE 75 MG TAB PO SCH (08:43)
[2018-08-25] MEDS: PANTOPRAZOLE SODIUM 40 MG VIAL IVP SCH ×2 (08:45→20:08)
[2018-08-25] MEDS: ALLOPURINOL 100 MG TAB PO SCH (08:45)
--- NOTE | 2018-08-25 09:58 | PDCARPN ---
Cardiology Progress Note Chief Complaint: Abdominal pain Assessment/Plan: Assessment: The patient is a 77 y/o M with a a history of DM and CAD s/p 3v CABG in 2005 admitted with abdominal pain and acute cholecystitis with sepsis. Cards was consulted for a cardiac evaluation prior to a cholecystectomy on 08/18. He is not very active but did play basketball with his grandchildren the other day without angina. He denies any chest pain. His troponin on admission was minimally elevated and has remained flat peaking at .068. His EKG shows anterior Tw inversion. A echo this admission showed preserved LV function with mild LVH and moderate PHTN with RVSP of 60. His last nuclear stress test was in 05/2017 which showed mild inferolateral ischemia which is unchanged from his stress test in 2014 which was done prior to a angiogram. At that time his angiogram showed a patent BRADY to the LAD, and occluded SVG's to the OM1 and OM3 with patent stent in the LCX. He is s/p cholecystectomy which was complicated by common bile duct injury requiring repair on 08/22. He denies any CP or SOB. Plan: 1. CAD with minimally elevated troponin in the setting of sepsis. He has anterior T wave changes but denies any symptoms of angina and his echo showed preserved LV function. Plan for out patient nuclear stress test in 6 weeks and follow up with Dr. Wharton. Continue medical management with Metoprolol and Imdur. Aspirin resumed. Plavix will be resumed when felt to be safe by surgery. 2. Acute on chronic renal failure- prerenal? transfused 1 until. 3. Cholecystectomy complicated by common bile duct injury requiring repair. 4. Anemia s/p 1u PRBC. Continue to monitor. H/H dropped a little last night. 5. WCT- 1 brief run, asymptomatic. Continue to monitor on tele. 08/25/18 09:55 Subjective: Pt denies any CP. He has a history of intermittant SOB which he is still having in the hospital. He is complaining of abdominal pain. Objective: Vital Signs (8 Hrs) Temp Pulse Resp BP Pulse Ox 08/25/18 08:42 64 152/75 H 08/25/18 07:54 36.8 C 60 23 H 153/74 H 94 08/25/18 04:00 36.8 C 64 18 139/67 H 93 08/25/18 02:00 62 14 94 Intake/Output (24 Hrs) 08/24/18 08/25/18 08/26/18 05:59 05:59 05:59 Intake Total 2998 4155 Output Total 2220 2670 Balance 778 1485 Intake: Oral (ml) 640 2550 IV Intake (ml) 314 IV Infused (ml) 2019 129 Ns 1,000 ml @ 125 mls/hr 2019 1191 IV CONT SUPA Rx#: [id number] Piperacillin/Tazo 3.375 100 gm/Dex 50 ml @ 100 mls/hr IV Q6H SUPA Rx#: [id number] Packed Red Blood Cells ( 338 ml) Output: Urine (ml) 1600 2050 Catheter 1600 2050 Biliary Drain Output (ml) 575 600 Biliary 575 600 GORGE Drain Output (ml) 45 20 Right Abdomen Vega 45 20 George Other: Weight 116 kg Number of Stools Catheter 0 0 Result Diagrams: 08/25/18 04:00 08/25/18 04:00 Telemetry: 1 run of WCT - Physical Exam Constitutional: no apparent distress Cardiovascular: regular rate and rhythm, no murmurs, no rubs, no gallops Respiratory: clear to auscultate bilat, no crackles, no wheezes Skin: no edema Neurologic: AAOx3 ICD10 Worksheet Patient Problems: Problems Problem Status Onset Abdominal pain Acute
[2018-08-25] MEDS: PRAMIPEXOLE 0.125 MG TAB PO SCH ×2 (10:06→20:07)
--- NOTE | 2018-08-25 12:36 | HOSPPROG ---
Hospitalist Progress Note Assessment/Plan: 77 yo M pw RUQ pain found to have sepsis and acute cholecystitis s/p difficult open ruiz 08/19 complicated by CBD injury. #CBD injury s/p perc biliary drain 08/22: Bilirubin down-trending - will need definitive surgery in several months - GORGE drain also in place, minimal output, likely pull soon #Acute on chronic cholecystitis s/p lap->open cholecystectomy 08/19 - pain controlled on current regimen - continue zosyn (plan for 10 days, currently day 8), cultures NGTD #EKATERINA on CKD: Suspect prerenal/ATN, making good urine - continue mIVF, monitor #Anemia: Post-op and dilutional. No e/o bleeding. S/p 1u PRBC 08/23. B12 ok. - monitor h/h daily #NSVT: short run 08/25 - continue metop, monitor K/Mg #Sepsis: Physiology resolved. #Chest pain: One episode 08/20. ECG with anterior TWI, repeat stable. Trop peak 0.06 prior to surgery in setting of sepsis. No WMA on echo. - Monitor #Acute hypoxia 2/2 atelectasis - IS at bedside, OOB #CAD: 3v CABG in 2005, LCx stent 8-9 years ago. Last cath 2018 showed patent BRADY->LAD, occluded SVG->OM1 and OM3, patent LCx stent - Restarted aspirin, continue beta laura, holding plavix until anemia stabilizes - Will need outpatient stress test #Pulmonary hypertension: RVSP 60mmHg. Caution with fluids. #DM2: Recent A1c 7.2% - Holding oral meds, continue SSI #QUIANA: Doesn't use cpap #Peripheral neuropathy: On gabapentin. #RLS #Deconditioning: PT/OT recommending SNF, CM aware, family looking at facilities VTE ppx: SCDs Code: full Diet: regular Dispo: Remain inpatient, transfer to PCU. ADD pending clinical course, likely few more days Subjective: Sitting up in chair. Doing well this AM, some pain when he bears down. No chest pain. Discussed progress with pt and family. Objective: Vital Signs Temp Pulse Resp BP Pulse Ox 36.8 C 67 17 133/71 H 97 08/25/18 11:44 08/25/18 11:44 08/25/18 11:44 08/25/18 11:44 08/25/18 11:44 Microbiology 08/18/18 14:41 Blood Culture - Final Blood 08/18/18 14:35 Blood Culture - Final Blood Laboratory Results 08/25/18 04:00 08/25/18 04:00 08/24/18 08/25/18 08/26/18 05:59 05:59 05:59 Intake Total 2998 4155 Output Total 2220 2670 Balance 778 1485 PT 14.0 SEC (12.0-15.0) 08/22/18 05:00 INR 1.12 (0.83-1.16) 08/22/18 05:00 - Physical Exam Constitutional: no apparent distress, appears nourished, not in pain Eyes: PERRL, anicteric sclera, EOMI Ears, Nose, Mouth, Throat: moist mucous membranes, hearing normal, ears appear normal, no oral mucosal ulcers Cardiovascular: regular rate and rhythym, no murmur, rub, or gallop, No edema Respiratory: no respiratory distress, reduced air movement (bases) Gastrointestinal: other (incision covered, drains in place) Skin: no rashes or abrasions, no fluctuance, no induration Musculoskeletal: generalized weakness Neurologic: AAOx3 Psychiatric: interacting appropriately ICD10 Worksheet Patient Problems: Problems Problem Status Onset Abdominal pain Acute
--- NOTE | 2018-08-25 13:25 | SOAPPROG ---
SOAP Progress Note Assessment/Plan: Assessment: 77yo M s/p lap ruiz, duct injury s/p open repair over T-tube. - VSS, HDs - pain is appropriate - T tube with bilious drainag, continue to gravity, will discuss clamping in future - GORGE bloody, but NO BILE staining apparent - reg diet, cont to watcjh GORGE - LFTs are down-trending, cont to trend - LFTs and renal function improving. Plan: 08/24/18 10:39 08/25/18 13:24 Subjective: hungry Objective: Vital Signs Temp Pulse Resp BP Pulse Ox 36.8 C 67 17 133/71 H 97 08/25/18 11:44 08/25/18 11:44 08/25/18 11:44 08/25/18 11:44 08/25/18 11:44 Microbiology 08/18/18 14:41 Blood Culture - Final Blood 08/18/18 14:35 Blood Culture - Final Blood Laboratory Results 08/25/18 04:00 08/25/18 04:00 08/24/18 08/25/18 08/26/18 05:59 05:59 05:59 Intake Total 2998 4155 Output Total 2220 2670 Balance 778 1485 PT 14.0 SEC (12.0-15.0) 08/22/18 05:00 INR 1.12 (0.83-1.16) 08/22/18 05:00 ICD10 Worksheet Patient Problems: Problems Problem Status Onset Abdominal pain Acute
[2018-08-25] MEDS: LATANOPROST 0.005% 2.5 ML OPHT DROPS EACHEYE SCH (20:08)
[2018-08-25] MEDS: traMADol 50 MG TAB PO PRN (22:08)
[2018-08-26] MEDS: PIPERACILLIN/TAZO 3.375 GM/DEX 50 ML IV SCH ×4 (01:35→19:34)
[2018-08-26] MEDS: NS 1,000 ML IV SCH (05:48)
[2018-08-26] MEDS: METOPROLOL TARTRATE 25 MG TAB PO SCH ×3 (08:08→21:57)
[2018-08-26] MEDS: CLOPIDOGREL BISULFATE 75 MG TAB PO SCH (08:08)
[2018-08-26] MEDS: ISOSORBIDE MONONITRATE 30 MG TAB.SR PO SCH (08:08)
[2018-08-26] MEDS: ALLOPURINOL 100 MG TAB PO SCH (08:08)
[2018-08-26] MEDS: INSULIN LISPRO 100 UNIT/ML SC SCH ×3 (08:08→18:25)
[2018-08-26] MEDS: PANTOPRAZOLE SODIUM 40 MG VIAL IVP SCH (08:08)
[2018-08-26] MEDS: GABAPENTIN 300 MG CAP PO SCH ×2 (08:08→20:00)
[2018-08-26] MEDS: PRAMIPEXOLE 0.125 MG TAB PO SCH ×2 (08:08→20:00)
[2018-08-26] MEDS: BACITRACIN OINTMENT 1 PACKET TP SCH ×2 (08:09→20:00)
--- NOTE | 2018-08-26 08:53 | HOSPPROG ---
Hospitalist Progress Note Assessment/Plan: 77 yo M pw RUQ pain found to have sepsis and acute cholecystitis s/p difficult open ruiz 08/19 complicated by CBD injury and s/p repair with perc drain #Acute on chronic cholecystitis s/p lap-> open cholecystectomy 08/19 - pain controlled on current regimen - continue zosyn (day 9), cultures NGTD #CBD injury s/p perc biliary drain 08/22: Bilirubin slightly increased today, but overall trending down - will need definitive surgery in several months - GORGE drain per surg #EKATERINA on CKD: Suspect prerenal/ATN, making good urine. Baseline Cr 1.4 - will decrease rate of IVF's #Anemia: Post-op and dilutional. No e/o bleeding. S/p 1u PRBC 08/23. B12 ok. Hgb stable at 8.1 this am - monitor h/h daily #NSVT: short run 08/25 - continue metop, monitor K/Mg #Sepsis: Physiology resolved. #Chest pain: One episode 08/20. ECG with anterior TWI, repeat stable. Trop peak 0.06 prior to surgery in setting of sepsis. No WMA on echo. - Monitor #Acute hypoxia 2/2 atelectasis, poor diaphragmatic excursion in setting of acute abdominal issues - IS at bedside, OOB - 2 LPM, wean as able #CAD: 3v CABG in 2005, LCx stent 8-9 years ago. Last cath 2018 showed patent BRADY->LAD, occluded SVG->OM1 and OM3, patent LCx stent - Restarted plavix, resume ASA when cleared by surg - outpatient stress test #Pulmonary hypertension: RVSP 60mmHg. Caution with fluids, decrease rate as above. #DM2: Recent A1c 7.2% - Holding oral meds, continue SSI #QUIANA: Doesn't use cpap #Peripheral neuropathy: On gabapentin. #RLS #Deconditioning: PT/OT recommending SNF, CM aware, family looking at facilities VTE ppx: mod-high risk, start Lovenox Code: full Diet: regular Dispo: Remain inpatient, PCU, planning for SNF Subjective: Pt up in chair, feels ok, eating solid foods. +flatus, no BM since day of surgery. Had some SOB overnight, worse while supine. Denies CP or SOB up in chair, feels better now. No N/V. ABdominal distention feels about the same as yest. Objective: Vital Signs Temp Pulse Resp BP Pulse Ox 37.2 C 63 20 160/90 H 96 08/26/18 07:31 08/26/18 08:08 08/26/18 07:31 08/26/18 08:08 08/26/18 07:31 Laboratory Results 08/26/18 04:44 08/26/18 04:44 08/25/18 08/26/18 08/27/18 05:59 05:59 05:59 Intake Total 4155 3215 Output Total 2670 4210 Balance 1485 -995 PT 14.0 SEC (12.0-15.0) 08/22/18 05:00 INR 1.12 (0.83-1.16) 08/22/18 05:00 - Physical Exam Constitutional: no apparent distress Eyes: PERRL Ears, Nose, Mouth, Throat: moist mucous membranes Cardiovascular: regular rate and rhythym Respiratory: no respiratory distress, clear to auscultation, reduced air movement Gastrointestinal: other (soft, mild TTP, +distention, no r/r/g +hypoactive BS) Skin: warm Musculoskeletal: full muscle strength Neurologic: AAOx3 Psychiatric: interacting appropriately ICD10 Worksheet Patient Problems: Problems Problem Status Onset Abdominal pain Acute
--- NOTE | 2018-08-26 09:35 | ASMTCMCOM ---
CM Note CM Note Notes: CM met with family and they chose [facility] as first choice. Pt has been accepted pending insurance auth. They had a question about pt's antibiotic. CM submit updates via Diana. Plan: [facility] pending insurance auth Date Signed: 08/26/2018 09:34 AM Electronically Signed By:NICOLE Isbell
--- NOTE | 2018-08-26 09:57 | SOAPPROG ---
SOKONRAD Progress Note Assessment/Plan: Assessment: PT DOING OK BUT BILIOUS GORGE OUTPUT AND RISING BILI MRCP SHOWS PRETTY DEFINITIVE CBD INJURY ERCP PLANNED FOR TOMORROW BUT MAYBE UNNECESSARY WITH SURGERY LIKELY NEEDED Plan:EVAL IN AM/ RISKS AND OPTIONS FULLY DISCUSSED 08/21/18 20:06 08/22/18 17:27 ERCP SHOWS DIVIDED CBD/ WILL NEED URGENT REPAIR/ RISKS AND OPTIONS FULLY DISCUSSED WITH FAMILY WHO WISHES TO PROCEED PLAN ; urgent bile duct repair 08/26/18 09:54 AFEBRILE/ WOUND OK/ LARGE BILE DRAINAGE FROM TTUBE/ MINIMAL GORGE OUT/ CO SOB/ HCT 2/ BILI 2.0 PLAN ADVANCE DIET/ CXR/ START CLAMPING TTUBE IN AM/ WATCH BILE OUTPUT FOR REPLACEMENT NEED Objective: Vital Signs Temp Pulse Resp BP Pulse Ox 37.2 C 63 20 160/90 H 96 08/26/18 07:31 08/26/18 08:08 08/26/18 07:31 08/26/18 08:08 08/26/18 07:31 Laboratory Results 08/26/18 04:44 08/26/18 04:44 08/25/18 08/26/18 08/27/18 05:59 05:59 05:59 Intake Total 4155 3215 Output Total 2670 4210 Balance 1485 -995 PT 14.0 SEC (12.0-15.0) 08/22/18 05:00 INR 1.12 (0.83-1.16) 08/22/18 05:00 ICD10 Worksheet Patient Problems: Problems Problem Status Onset Abdominal pain Acute
[2018-08-26] MEDS: DOCUSATE SODIUM 100 MG CAP PO SCH ×2 (10:31→20:00)
[2018-08-26] MEDS: ENOXAPARIN 40 MG/0.4 ML SYR SC SCH (10:31)
[2018-08-26] MEDS ORDERED: POLYETHYLENE GLYCOL 3350 17 GM PKT PO PRN (10:43)
[2018-08-26] MEDS ORDERED: MAGNESIUM HYDROXIDE 30 ML UDCUP PO PRN (10:43)
[2018-08-26] MEDS ORDERED: LACTULOSE 20 GM/30 ML UDCUP PO PRN (10:43)
[2018-08-26] MEDS ORDERED: BISACODYL 10 MG SUPP PR PRN (10:43)
--- NOTE | 2018-08-26 11:06 | SOAPPROG ---
RITA Progress Note Assessment/Plan: Assessment: Cardiology Progress Note Chief Complaint: Abdominal pain Assessment/Plan: Assessment: The patient is a 77 y/o M with a a history of DM and CAD s/p 3v CABG in 2005 admitted with abdominal pain and acute cholecystitis with sepsis. Cards was consulted for a cardiac evaluation prior to a cholecystectomy on 08/18. He is not very active but did play basketball with his grandchildren the other day without angina. He denies any chest pain. His troponin on admission was minimally elevated and has remained flat peaking at .068. His EKG shows anterior Tw inversion. A echo this admission showed preserved LV function with mild LVH and moderate PHTN with RVSP of 60. His last nuclear stress test was in 05/2017 which showed mild inferolateral ischemia which is unchanged from his stress test in 2014 which was done prior to a angiogram. At that time his angiogram showed a patent BRADY to the LAD, and occluded SVG's to the OM1 and OM3 with patent stent in the LCX. He is s/p cholecystectomy which was complicated by common bile duct injury requiring repair on 08/22. He denies any CP or SOB. Plan: 1. CAD with minimally elevated troponin in the setting of sepsis. He has anterior T wave changes but denies any symptoms of angina and his echo showed preserved LV function. Plan for out patient nuclear stress test in 6 weeks and follow up with Dr. Wharton. Continue medical management with Metoprolol and Imdur. Aspirin resumed. Plavix will be resumed when felt to be safe by surgery. 2. Acute on chronic renal failure- prerenal? transfused 1 until. 3. Cholecystectomy complicated by common bile duct injury requiring repair. 4. Anemia s/p 1u PRBC. Continue to monitor. H/H dropped a little last night. 5. WCT- no arrhythmias overnight Plan:1. no changes today 08/26/18 11:06 Subjective: anxious but no cv c/o...some sob last night but no reported issues form the heart..... Objective: Vital Signs Temp Pulse Resp BP Pulse Ox 37.2 C 63 20 160/90 H 96 08/26/18 07:31 08/26/18 08:08 08/26/18 07:31 08/26/18 08:08 08/26/18 07:31 Laboratory Results 08/26/18 04:44 08/26/18 04:44 08/25/18 08/26/18 08/27/18 05:59 05:59 05:59 Intake Total 4155 3215 Output Total 1952 4210 Balance 1485 -995 PT 14.0 SEC (12.0-15.0) 08/22/18 05:00 INR 1.12 (0.83-1.16) 08/22/18 05:00 Physical Exam - Physical Exam Respiratory: lungs clear Cardiac/Chest: regular rate, rhythm ICD10 Worksheet Patient Problems: Problems Problem Status Onset Abdominal pain Acute
--- NOTE | 2018-08-26 13:50 | CPEKG ---
Test Reason : OPEN Blood Pressure : / mmHG Vent. Rate : 081 BPM Atrial Rate : 082 BPM P-R Int : 147 ms QRS Dur : 094 ms QT Int : 419 ms P-R-T Axes : 000 017 029 degrees QTc Int : 487 ms Sinus rhythm Low voltage, precordial leads Nonspecific T abnormalities, anterior leads Confirmed by Caleb Hewitt ([id number]) on 08/26/2018 1:49:31 PM Referred By: Brianna Daniel Confirmed By:Caleb Hewitt
[2018-08-26] MEDS: hydrALAZINE 20 MG/ML VIAL IVP PRN (19:56)
[2018-08-26] MEDS: SENNOSIDES/DOCUSATE SODIUM TAB PO SCH (20:00)
[2018-08-26] MEDS: LATANOPROST 0.005% 2.5 ML OPHT DROPS EACHEYE SCH (20:01)
[2018-08-26] MEDS: PANTOPRAZOLE SODIUM 40 MG TAB PO SCH (20:07)
[2018-08-26] MEDS: traMADol 50 MG TAB PO PRN (21:57)
[2018-08-27] MEDS: PIPERACILLIN/TAZO 3.375 GM/DEX 50 ML IV SCH ×4 (01:45→20:44)
--- NOTE | 2018-08-27 08:50 | HOSPPROG ---
Hospitalist Progress Note Assessment/Plan: 77 yo M pw RUQ pain found to have sepsis and acute cholecystitis s/p difficult open ruiz 08/19 complicated by CBD injury and s/p repair with perc drain #Acute on chronic cholecystitis s/p lap-> open cholecystectomy 08/19 - pain controlled on current regimen - will complete 10 d course of zosyn today, blood cultures NGTD #CBD injury s/p perc biliary drain 08/22: Bilirubin trending back up (5 --> 1.6 - -> 2.3). - d/w Dr. Woodall, planning for cholangiogram - will need definitive surgery in several months - GORGE drain per surg, draining well - cont to trend bili #Acute hypoxia 2/2 atelectasis, poor diaphragmatic excursion in setting of acute abdominal issues, possibly mild volume overload - now on room air, weaned off 2 LPM since yest - IS at bedside, OOB - CXR yest pers rev/interp, no acute changes, atelectasis noted - check bnp (~9K), daily weights, will give Lasix 20 mg IV now and gauge response Acute on chronic dHF - grade 2 diastolic dysfunction on recent echo. Note wt up and elevated BNP with orthopnea. - IV Lasix now as above - follow I&O's, daily weights #EKATERINA on CKD: Suspect prerenal/ATN, making good urine, Cr trending down, near baseline of Cr 1.4 - d/c IVF's #CAD: 3v CABG in 2005, LCx stent 8-9 years ago. Last cath 2017 showed patent BRADY->LAD, occluded SVG->OM1 and OM3, patent LCx stent - Restarted plavix, resume ASA when cleared by surg - outpatient stress test #Anemia: Post-op and dilutional. No e/o bleeding. S/p 1u PRBC 08/23. B12 ok. Hgb stable at 8.9 this am - monitor h/h daily #NSVT: short run 08/25 - continue metop, monitor K/Mg #Sepsis: Physiology resolved. #Chest pain: One episode 08/20. ECG with anterior TWI, repeat stable. Trop peak 0.06 prior to surgery in setting of sepsis. No WMA on echo. - Monitor #Pulmonary hypertension: RVSP 60mmHg. - D/C IVF's as above #DM2: Recent A1c 7.2% - Holding oral meds, continue SSI #QUIANA: Doesn't use cpap #Peripheral neuropathy: On gabapentin. #RLS #Deconditioning: PT/OT recommending SNF, CM aware, family looking at facilities VTE ppx: mod-high risk, Lovenox Code: full Diet: regular Dispo: Remain inpatient, PCU, planning for SNF Subjective: Pt continues to c/o orthopnea, difficulty breathing when he is trying to sleep. No CP. No SOB while upright in chair. No LE edema. Abdominal pain is controlled. Some nausea, no vomiting. No fevers/chills. He isn't ambulating much. Tolerating diet. Objective: Vital Signs Temp Pulse Resp BP Pulse Ox 36.7 C 81 18 144/73 H 92 08/27/18 07:56 08/27/18 07:56 08/27/18 07:56 08/27/18 07:56 08/27/18 07:56 Laboratory Results 08/27/18 05:38 08/27/18 05:38 08/26/18 08/27/18 08/28/18 05:59 05:59 05:59 Intake Total 3215 2000 Output Total 4210 6215 Balance -995 -4223 PT 14.0 SEC (12.0-15.0) 08/22/18 05:00 INR 1.12 (0.83-1.16) 08/22/18 05:00 - Physical Exam Constitutional: no apparent distress Eyes: PERRL Ears, Nose, Mouth, Throat: moist mucous membranes Cardiovascular: regular rate and rhythym, other (no JVD) Respiratory: no respiratory distress, other (diminished at right base, no crackles) Gastrointestinal: normoactive bowel sounds, other (soft, minimal TTP, no r/r/g, mod distention, GORGE drain functioning, incision c/d/i) Skin: warm Musculoskeletal: other (no edema) ICD10 Worksheet Patient Problems: Problems Problem Status Onset Abdominal pain Acute
[2018-08-27] MEDS: INSULIN LISPRO 100 UNIT/ML SC SCH ×3 (08:52→17:50)
[2018-08-27] MEDS: ALLOPURINOL 100 MG TAB PO SCH (08:53)
[2018-08-27] MEDS: ISOSORBIDE MONONITRATE 30 MG TAB.SR PO SCH (08:53)
[2018-08-27] MEDS: BACITRACIN OINTMENT 1 PACKET TP SCH ×2 (08:53→20:50)
[2018-08-27] MEDS: SENNOSIDES/DOCUSATE SODIUM TAB PO SCH ×2 (08:54→20:50)
[2018-08-27] MEDS: PANTOPRAZOLE SODIUM 40 MG TAB PO SCH ×2 (08:54→20:47)
[2018-08-27] MEDS: METOPROLOL TARTRATE 25 MG TAB PO SCH ×3 (08:54→20:45)
[2018-08-27] MEDS: CLOPIDOGREL BISULFATE 75 MG TAB PO SCH (08:54)
[2018-08-27] MEDS: PRAMIPEXOLE 0.125 MG TAB PO SCH ×2 (08:54→20:47)
[2018-08-27] MEDS: DOCUSATE SODIUM 100 MG CAP PO SCH ×2 (08:55→21:12)
[2018-08-27] MEDS: GABAPENTIN 300 MG CAP PO SCH ×2 (08:55→20:47)
[2018-08-27] MEDS: ENOXAPARIN 40 MG/0.4 ML SYR SC SCH (08:55)
[2018-08-27] MEDS ORDERED: FUROSEMIDE 20 MG/2 ML VIAL IVP ONE (10:40)
[2018-08-27] MEDS ORDERED: POTASSIUM CL 20 MEQ TAB PO ONE (10:42)
--- NOTE | 2018-08-27 11:35 | SOAPPROG ---
SOKONRAD Progress Note Assessment/Plan: Assessment: Cardiology Progress Note Chief Complaint: Abdominal pain Assessment/Plan: Assessment: The patient is a 77 y/o M with a a history of DM and CAD s/p 3v CABG in 2005 admitted with abdominal pain and acute cholecystitis with sepsis. Cards was consulted for a cardiac evaluation prior to a cholecystectomy on 08/18. He is not very active but did play basketball with his grandchildren the other day without angina. He denies any chest pain. His troponin on admission was minimally elevated and has remained flat peaking at .068. His EKG shows anterior Tw inversion. A echo this admission showed preserved LV function with mild LVH and moderate PHTN with RVSP of 60. His last nuclear stress test was in 05/2017 which showed mild inferolateral ischemia which is unchanged from his stress test in 2014 which was done prior to a angiogram. At that time his angiogram showed a patent BRADY to the LAD, and occluded SVG's to the OM1 and OM3 with patent stent in the LCX. He is s/p cholecystectomy which was complicated by common bile duct injury requiring repair on 08/22. He denies any CP or SOB. Plan: 1. CAD with minimally elevated troponin in the setting of sepsis. He has anterior T wave changes but denies any symptoms of angina and his echo showed preserved LV function. Plan for out patient nuclear stress test in 6 weeks and follow up with Dr. Wharton. Continue medical management with Metoprolol and Imdur. Aspirin resumed. Plavix restarted. pt diuresing post lasix which should help with sob 2. Acute on chronic renal failure- prerenal? transfused 1 until. 3. Cholecystectomy complicated by common bile duct injury requiring repair. 4. Anemia s/p 1u PRBC. Continue to monitor. H/H dropped a little last night. 5. WCT- no arrhythmias overnight Plan:1. no changes today 08/26/18 11:06 08/27/18 11:36 Subjective: pt doing a little better..he received lasix today with some response...would continue gentle diuresis and fooow creat...ok to increase exercise as tolerated..no cv issues of hypotension or arrhythmias Objective: Vital Signs Temp Pulse Resp BP Pulse Ox 36.7 C 74 18 154/81 H 92 08/27/18 07:56 08/27/18 08:54 08/27/18 07:56 08/27/18 08:54 08/27/18 07:56 Laboratory Results 08/27/18 05:38 08/27/18 05:38 08/26/18 08/27/18 08/28/18 05:59 05:59 05:59 Intake Total 321 1999 450 Output Total 4216 6257 375 Balance -995 -4222 75 PT 14.0 SEC (12.0-15.0) 08/22/18 05:00 INR 1.12 (0.83-1.16) 08/22/18 05:00 Physical Exam - Physical Exam Respiratory: lungs clear (after cough) Cardiac/Chest: regular rate, rhythm, No edema, No gallop, No JVD ICD10 Worksheet Patient Problems: Problems Problem Status Onset Abdominal pain Acute
--- NOTE | 2018-08-27 16:30 | ASMTCMCOM ---
GURJIT Note GURJIT Note Notes: Called patient's Jolanta but patient answered the phone. He will check with his family regarding a family meeting tomorrow and will let us know in the morning. CM left my card with him so his will have my number to call if need be. CM following. Date Signed: 08/27/2018 04:29 PM Electronically Signed By:Brie Kan LCSW
--- NOTE | 2018-08-27 19:02 | SOAPPROG ---
RITA Progress Note Assessment/Plan: Assessment: PT DOING OK BUT BILIOUS GORGE OUTPUT AND RISING BILI MRCP SHOWS PRETTY DEFINITIVE CBD INJURY ERCP PLANNED FOR TOMORROW BUT MAYBE UNNECESSARY WITH SURGERY LIKELY NEEDED Plan:EVAL IN AM/ RISKS AND OPTIONS FULLY DISCUSSED 08/21/18 20:06 08/22/18 17:27 ERCP SHOWS DIVIDED CBD/ WILL NEED URGENT REPAIR/ RISKS AND OPTIONS FULLY DISCUSSED WITH FAMILY WHO WISHES TO PROCEED PLAN ; urgent bile duct repair 08/26/18 09:54 AFEBRILE/ WOUND OK/ LARGE BILE DRAINAGE FROM TTUBE/ MINIMAL GORGE OUT/ CO SOB/ HCT 2/ BILI 2.0 PLAN ADVANCE DIET/ CXR/ START CLAMPING TTUBE IN AM/ WATCH BILE OUTPUT FOR REPLACEMENT NEED 08/27/18 19:00 AFEBRILE/SEEMS STABLE/NONICTERIC BILI 2.3 AFTER BLOOD TRANSFUSION ABDOMEN SOFT/POSITIVE BOWEL SOUNDS/POSITIVE BOWEL MOVEMENT/EATING WELL CHEST CLEAR BNP 9000 WHICH MAY EXPLAIN HIS SHORTNESS OF BREATH PLAN IS DIURESIS/CHOLANGIOGRAM ON SUNDAY AND BEGAN CLAMPING T-TUBE Objective: Vital Signs Temp Pulse Resp BP Pulse Ox 36.7 C 70 21 H 148/62 H 91 L 08/27/18 16:00 08/27/18 16:30 08/27/18 16:00 08/27/18 16:30 08/27/18 16:00 Laboratory Results 08/27/18 05:38 08/27/18 05:38 08/26/18 08/27/18 08/28/18 05:59 05:59 05:59 Intake Total 321 1999 700 Output Total [address] [facility]996 -4223 -1925 PT 14.0 SEC (12.0-15.0) 08/22/18 05:00 INR 1.12 (0.83-1.16) 08/22/18 05:00 ICD10 Worksheet Patient Problems: Problems Problem Status Onset Abdominal pain Acute
[2018-08-27] MEDS: LATANOPROST 0.005% 2.5 ML OPHT DROPS EACHEYE SCH (20:51)
[2018-08-27] MEDS: MELATONIN 3 MG TAB PO SCH (21:13)
[2018-08-28] MEDS: INSULIN LISPRO 100 UNIT/ML SC SCH ×3 (08:11→17:40)
[2018-08-28] MEDS: METOPROLOL TARTRATE 25 MG TAB PO SCH ×3 (08:30→22:05)
[2018-08-28] MEDS: ISOSORBIDE MONONITRATE 30 MG TAB.SR PO SCH (08:31)
[2018-08-28] MEDS: PANTOPRAZOLE SODIUM 40 MG TAB PO SCH ×2 (08:31→22:06)
[2018-08-28] MEDS: ALLOPURINOL 100 MG TAB PO SCH (08:32)
[2018-08-28] MEDS: DOCUSATE SODIUM 100 MG CAP PO SCH ×2 (08:32→22:06)
[2018-08-28] MEDS: CLOPIDOGREL BISULFATE 75 MG TAB PO SCH (08:32)
[2018-08-28] MEDS: ENOXAPARIN 40 MG/0.4 ML SYR SC SCH (08:33)
[2018-08-28] MEDS: BACITRACIN OINTMENT 1 PACKET TP SCH ×2 (08:46→22:09)
--- NOTE | 2018-08-28 09:16 | SOAPPROG ---
SOAP Progress Note Assessment/Plan: Assessment/plan: 77 y/o M c cardiac hx involving CABG and coronary stents admitted with acute cholecystitis, cholelithiasis, RUQ pain, elevated LFTs. Fluid responsive sepsis related hypotension. s/p ex laparoscopy, laparotomy with difficult cholecystectomy with Dr. Craig, Now s/p open repair of common bile duct 08/22 Pain. Well controlled Good bowel sounds. Had 2 BMs yesterday. Continue biliary drain. Continue GORGE drain. Bilirubin down to 1.9 today. CHF. Appreciate cards input. Had good response to Lasix yesterday. Plan: cholangiogram tomorrow. Hope to clamp tube afterward. Dispo: continue inpt status. S: Feeling well. SOB better. O: Alert Afebrile, VSS RRR CTAB, no increased WOB Abdomen: soft, attp, normoactive BS, incision cdi with candis intact, GORGE and biliary drains in place 08/28/18 09:13 Objective: Vital Signs Temp Pulse Resp BP Pulse Ox 36.6 C 73 11 L 156/94 H 93 08/28/18 07:32 08/28/18 08:37 08/28/18 08:37 08/28/18 08:37 08/28/18 08:37 Laboratory Results 08/27/18 05:38 08/28/18 05:05 08/27/18 08/28/18 08/29/18 05:59 05:59 05:59 Intake Total 1999 865 Output Total 4177 8722 Balance -9119 -5946 PT 14.0 SEC (12.0-15.0) 08/22/18 05:00 INR 1.12 (0.83-1.16) 08/22/18 05:00 ICD10 Worksheet Patient Problems: Problems Problem Status Onset Abdominal pain Acute
[2018-08-28] MEDS: SENNOSIDES/DOCUSATE SODIUM TAB PO SCH ×2 (09:53→22:06)
[2018-08-28] MEDS: GABAPENTIN 300 MG CAP PO SCH ×2 (09:53→22:05)
[2018-08-28] MEDS: PRAMIPEXOLE 0.125 MG TAB PO SCH ×2 (09:57→22:05)
--- NOTE | 2018-08-28 10:12 | SOAPPROG ---
RITA Progress Note Assessment/Plan: Assessment: Cardiology Progress Note Chief Complaint: Abdominal pain Assessment/Plan: Assessment: The patient is a 77 y/o M with a a history of DM and CAD s/p 3v CABG in 2005 admitted with abdominal pain and acute cholecystitis with sepsis. Cards was consulted for a cardiac evaluation prior to a cholecystectomy on 08/18. He is not very active but did play basketball with his grandchildren the other day without angina. He denies any chest pain. His troponin on admission was minimally elevated and has remained flat peaking at .068. His EKG shows anterior Tw inversion. A echo this admission showed preserved LV function with mild LVH and moderate PHTN with RVSP of 60. His last nuclear stress test was in 05/2017 which showed mild inferolateral ischemia which is unchanged from his stress test in 2014 which was done prior to a angiogram. At that time his angiogram showed a patent BRADY to the LAD, and occluded SVG's to the OM1 and OM3 with patent stent in the LCX. He is s/p cholecystectomy which was complicated by common bile duct injury requiring repair on 08/22. He denies any CP or SOB. Plan: 1. CAD with minimally elevated troponin in the setting of sepsis. He has anterior T wave changes but denies any symptoms of angina and his echo showed preserved LV function. Plan for out patient nuclear stress test in 6 weeks and follow up with Dr. Wharton. Continue medical management with Metoprolol and Imdur. Aspirin resumed. Plavix restarted. Brisk diuresis of Lasix yesterday no Lasix needed today will continue to follow. Can use p.r.n. Lasix if need be. 2. Acute on chronic renal failure- creatinine 1.7 baseline no Lasix today. 3. Cholecystectomy complicated by common bile duct injury requiring repair. 4. Anemia s/p 1u PRBC. Continue to monitor. H/H dropped a little last night. 5. WCT- no arrhythmias overnight Plan:1. no changes today 08/26/18 11:06 08/27/18 11:36 08/28/18 10:11 Subjective: Patient doing better today. Had a proximal 67 later urine output yesterday shortness of breath is improved creatinine 1.7 no Lasix needed today. Continue increasing activities as tolerated. No cardiac limitations at this time or other cardiac issues. Objective: Vital Signs Temp Pulse Resp BP Pulse Ox 36.6 C 73 11 L 156/94 H 93 08/28/18 07:32 08/28/18 08:37 08/28/18 08:37 08/28/18 08:37 08/28/18 08:37 Laboratory Results 08/27/18 05:38 08/28/18 05:05 08/27/18 08/28/18 08/29/18 05:59 05:59 05:59 Intake Total 1999 865 200 Output Total 6228 4206 Balance -6217 -3446 200 PT 14.0 SEC (12.0-15.0) 08/22/18 05:00 INR 1.12 (0.83-1.16) 08/22/18 05:00 Physical Exam - Physical Exam Respiratory: lungs clear Cardiac/Chest: regular rate, rhythm, No edema, No gallop, No JVD ICD10 Worksheet Patient Problems: Problems Problem Status Onset Abdominal pain Acute
--- NOTE | 2018-08-28 11:15 | GOP ---
[f rep st] OPERATIVE REPORT DATE OF OPERATION: SURGEON: Maxwell Woodall MD ROOFER HELPER: Megan Welsh NP. ANESTHESIOLOGIST: Dr. Chew. PREOPERATIVE DIAGNOSIS: Common bile duct injury and ligation post cholecystectomy. POSTOPERATIVE DIAGNOSIS: Common bile duct injury and ligation post cholecystectomy. PROCEDURE PERFORMED: Open repair of a common bile duct using a T-tube stent. FINDINGS: The patient was found to have no remaining infection collections in the right upper quadra nt. The gallbladder bed was quiet after adhesions were taken down. The common bile duct was fairly easily exposed and appeared to be a hemoclip and a circumferential silk suture in a short section of the common duct adjacent to where the cystic duct appeared to have entered the common bile duct. The re were no stones in the bile duct and there was free flow of bile from above. DESCRIPTION OF PROCEDURE: The patient was taking to the operating room where he received satisfactor y general endotracheal anesthesia by Dr. Chew. He was placed in supine position and prepped and drap ed in usual sterile fashion. The previous old subcostal incision was opened and carried down through the muscular layers. The abdomen was entered. The incision was extended somewhat medially for bett er exposure. Omni retractor was used and the subhepatic and portal areas were exposed. The wound wa s copiously irrigated. Adhesions were taken down tediously and carefully until the common duct could be identified. The Shailesh maneuver was performed on the duodenum, elevating everything up toward us and the liver bed was packed away. The common duct was carefully exposed. We did find a more dilat ed proximal duct and less dilated distal duct, which had been encircled with a silk tie. This was re moved along with a hemoclip which was adjacent to that. This resulted in an open hole in the side of the common duct and free bile flow. The ducts were open above and below. They were milked with no stones could be identified. Choledochal scope was not available at this time for internal exam. At that point, a decision had to be made about how to reconstruct the bile duct. The duct itself appear ed to be quite viable with no major devascularization except for the possible area of the silk tie. The open hole site was debrided and the cut edges did bleed. It was felt safe to do a primary repair over a T-tube rather than a Judith-en-Y reconstruction to a small, minimally dilated duct. Using loup e magnification and 4-0 Vicryl sutures, and 18 T-Tube was fashioned and placed into the ductal openin g, which was now somewhat transverse. The bile duct opening was closed with interrupted 4-0 Vicryl s utures in a transverse manner. The T-tube was then injected and the closure appeared to be reasonabl y watertight. The wound was copiously irrigated. The T-tube was brought out through the anterior ab dominal wall. T-Tube cholangiogram revealed no filling defects and free flow into the duodenum and n o leakage at the site of the closure. At this point, I felt to be the safest way to deal with this, a 15 round silicone GORGE drain was brought out through separate stab incision and secured at the skin a lso with a 2-0 silk suture and the wound was then closed in layers using a running 0 Vicryl suture fo r the posterior sheath, a running #1 PDS suture for the anterior sheath, 3-0 Vicryl for the subcu, an d skin candis for the skin. The common duct was attached to a bile drainage bag. The tube was secu red at the skin with a 2-0 silk suture and the wounds were dressed. He tolerated the procedure well. All wounds were infiltrated with 0.5% Marcaine. /[id number]/MODL
--- NOTE | 2018-08-28 14:44 | HOSPPROG ---
Hospitalist Progress Note Assessment/Plan: 77 yo M pw RUQ pain found to have sepsis and acute cholecystitis s/p difficult open ruiz 08/19 complicated by CBD injury and s/p repair with perc drain #Acute on chronic cholecystitis s/p lap-> open cholecystectomy 08/19 complicated by bile duct injury - pain controlled on current regimen - s/p 10 days zosyn, blood cultures NGTD #CBD injury s/p perc biliary drain 08/22: Bilirubin trending back up (5 --> 1.6 - -> 2.3 --> 1.9). - d/w Dr. Woodall, planning for cholangiogram and possibly clamp biliary drain - will need definitive surgery in several months - GORGE drain per surg, draining well - cont to trend bili #Acute hypoxia and SOB 2/2 atelectasis, poor diaphragmatic excursion in setting of acute abdominal issues, possibly mild volume overload - now on room air - IS at bedside, OOB - symptoms improved after IV Lasix yest Acute on chronic dHF - grade 2 diastolic dysfunction on recent echo. BNP 8K - good response to IV Lasix yest, defer today with elevated Cr - follow I&O's, daily weights #EKATERINA on CKD: Suspect prerenal/ATN, making good urine, baseline Cr 1.4 - cont to trend #CAD: 3v CABG in 2005, LCx stent 8-9 years ago. Last cath 2017 showed patent BRADY->LAD, occluded SVG->OM1 and OM3, patent LCx stent - Restarted plavix, resume ASA when cleared by surg - outpatient stress test #Anemia: Post-op and dilutional. No e/o bleeding. S/p 1u PRBC 08/23. B12 ok. Hgb stable - monitor h/h #NSVT: short run 08/25 - continue metop, monitor K/Mg #Sepsis: Physiology resolved. #Chest pain: One episode 08/20. ECG with anterior TWI, repeat stable. Trop peak 0.06 prior to surgery in setting of sepsis. No WMA on echo. - Monitor #Pulmonary hypertension: RVSP 60mmHg. - D/C'd IVF's as above #DM2: Recent A1c 7.2% - Holding oral meds, continue SSI #QUIANA: Doesn't use cpap #Peripheral neuropathy: On gabapentin. #RLS #Deconditioning: PT/OT recommending SNF, CM aware, family looking at facilities VTE ppx: mod-high risk, Lovenox Code: full Diet: regular Dispo: Remain inpatient, PCU, planning for SNF Subjective: Pt feels better today. Breathing was not as difficult overnight. No CP or SOB this am. Abdominal pain is improved, less distentio. He had a BM this am. Ambulated in halls. No fevers/chills. No N/V. Objective: Vital Signs Temp Pulse Resp BP Pulse Ox 36.8 C 70 16 136/62 H 94 08/28/18 11:30 08/28/18 11:30 08/28/18 11:30 08/28/18 11:30 08/28/18 11:30 Laboratory Results 08/27/18 05:38 08/28/18 05:05 08/27/18 08/28/18 08/29/18 05:59 05:59 05:59 Intake Total 1999 865 400 Output Total 6223 4205 200 Balance -4223 -3340 200 PT 14.0 SEC (12.0-15.0) 08/22/18 05:00 INR 1.12 (0.83-1.16) 08/22/18 05:00 - Physical Exam Constitutional: no apparent distress Eyes: PERRL Ears, Nose, Mouth, Throat: moist mucous membranes Cardiovascular: regular rate and rhythym, no murmur, rub, or gallop Respiratory: no respiratory distress, clear to auscultation Gastrointestinal: other (soft, less distended, minimal TTP, incision c/d/i, biliary and GORGE drain funtioning, +BS) Skin: warm Musculoskeletal: full muscle strength Neurologic: AAOx3 Psychiatric: interacting appropriately ICD10 Worksheet Patient Problems: Problems Problem Status Onset Abdominal pain Acute
[2018-08-28] MEDS: MELATONIN 3 MG TAB PO SCH (22:05)
[2018-08-28] MEDS: LATANOPROST 0.005% 2.5 ML OPHT DROPS EACHEYE SCH (22:09)
[2018-08-29] MEDS: INSULIN LISPRO 100 UNIT/ML SC SCH ×3 (08:08→18:07)
[2018-08-29] MEDS: GABAPENTIN 300 MG CAP PO SCH ×2 (08:09→22:05)
[2018-08-29] MEDS: PANTOPRAZOLE SODIUM 40 MG TAB PO SCH ×2 (08:09→22:09)
[2018-08-29] MEDS: METOPROLOL TARTRATE 25 MG TAB PO SCH ×2 (08:09→22:08)
[2018-08-29] MEDS: ISOSORBIDE MONONITRATE 30 MG TAB.SR PO SCH (08:10)
[2018-08-29] MEDS: PRAMIPEXOLE 0.125 MG TAB PO SCH ×2 (08:10→22:08)
[2018-08-29] MEDS: BACITRACIN OINTMENT 1 PACKET TP SCH ×2 (08:11→22:14)
[2018-08-29] MEDS: CLOPIDOGREL BISULFATE 75 MG TAB PO SCH (08:11)
[2018-08-29] MEDS: ENOXAPARIN 40 MG/0.4 ML SYR SC SCH (08:11)
[2018-08-29] MEDS: ALLOPURINOL 100 MG TAB PO SCH (08:11)
[2018-08-29] MEDS: DOCUSATE SODIUM 100 MG CAP PO SCH ×2 (08:14→22:09)
[2018-08-29] MEDS: SENNOSIDES/DOCUSATE SODIUM TAB PO SCH ×2 (08:14→22:09)
[2018-08-29] MEDS ORDERED: cefOXitin SODIUM 2 GM in NS 100 ML IV ONE (08:44)
--- NOTE | 2018-08-29 11:03 | SOAPPROG ---
SOAP Progress Note Assessment/Plan: Assessment/plan: 77 y/o M c cardiac hx involving CABG and coronary stents admitted with acute cholecystitis, cholelithiasis, RUQ pain, elevated LFTs. Fluid responsive sepsis related hypotension. s/p ex laparoscopy, laparotomy with difficult cholecystectomy with Dr. Craig, Now s/p open repair of common bile duct 08/22 Pain. Well controlled Good bowel sounds. Had 2 BMs yesterday. Continue biliary drain. Continue GORGE drain. Bilirubin down to 1.2 today. CHF. Appreciate cards input. Had good response to Lasix on Sunday. Plan: cholangiogram today Hope to clamp tube afterward. Dispo: continue inpt status. S: Feeling well. SOB better. O: Alert Afebrile, VSS RRR CTAB, no increased WOB Abdomen: soft, attp, normoactive BS, incision cdi with candis intact, GORGE and biliary drains in place 08/29/18 11:02 Objective: Vital Signs Temp Pulse Resp BP Pulse Ox 36.4 C 74 16 144/76 H 93 08/29/18 07:45 08/29/18 08:09 08/29/18 07:45 08/29/18 08:10 08/29/18 07:45 Laboratory Results 08/27/18 05:38 08/29/18 05:25 08/28/18 08/29/18 08/30/18 05:59 05:59 05:59 Intake Total 865 850 Output Total 4205 1280 Balance -3340 -430 PT 14.0 SEC (12.0-15.0) 08/22/18 05:00 INR 1.12 (0.83-1.16) 08/22/18 05:00 ICD10 Worksheet Patient Problems: Problems Problem Status Onset Abdominal pain Acute
--- NOTE | 2018-08-29 11:06 | HOSPPROG ---
Hospitalist Progress Note Assessment/Plan: 77 yo M pw RUQ pain found to have sepsis and acute cholecystitis s/p difficult open ruiz 08/19 complicated by CBD injury and s/p repair with perc drain #Acute on chronic cholecystitis s/p lap -> open cholecystectomy 08/19 complicated by bile duct injury - s/p 10 days zosyn, blood cultures NGTD #CBD injury s/p perc biliary drain 08/22: Bilirubin has trended down to normal. - per surg, cholangiogram today and possibly clamp tube after - will need definitive surgery in several months - GORGE drain per surg #Acute hypoxia and SOB 2/2 atelectasis, poor diaphragmatic excursion in setting of acute abdominal issues, possibly mild volume overload - now on room air - IS at bedside, OOB - symptoms improved after IV Lasix Sunday #Acute on chronic dHF - grade 2 diastolic dysfunction on recent echo. BNP 8K, had good response to IV lasix - follow I&O's, daily weights #Orthostatic hypotension - note recently started on metoprolol 25 mg tid - will give gentle NS at 75/hr for 1 L and recheck orthostatics - decrease metoprolol, add hold parameters - check am cortisol #NSVT: short run 08/25, has not recurred - decrease metoprolol to 12.5 bid from 25 tid due to orthostasis #EKATERINA on CKD: Suspect prerenal/ATN, making good urine, Cr near baseline of 1.4 - cont to trend #CAD: 3v CABG in 2005, LCx stent 8-9 years ago. Last cath 2018 showed patent BRADY->LAD, occluded SVG->OM1 and OM3, patent LCx stent - Restarted plavix, resume ASA when cleared by surg - outpatient stress test #Anemia: Post-op and dilutional. No e/o bleeding. S/p 1u PRBC 08/23. B12 ok. Hgb stable - monitor h/h #Sepsis: Physiology resolved. #Chest pain: One episode 08/20. ECG with anterior TWI, repeat stable. Trop peak 0.06 prior to surgery in setting of sepsis. No WMA on echo. - outpt stress test as above #Pulmonary hypertension: RVSP 60mmHg. #DM2: Recent A1c 7.2% - Holding oral meds, continue SSI #QUIANA: Doesn't use cpap #Peripheral neuropathy: On gabapentin. #RLS #Deconditioning: PT/OT recommending SNF, CM aware, family looking at facilities VTE ppx: mod-high risk, Lovenox Code: full Diet: regular Dispo: Remain inpatient, PCU, planning for SNF Subjective: Pt had a good night, slept well. No CP, SOB or orthopnea. RN notes he became orthostatic today, dropping SBP to 80's with PT. No fevers/ chills. Had BM this am, no abdominal pain, has not required opiates recently. No N/V. Tolerating po. Objective: Vital Signs Temp Pulse Resp BP Pulse Ox 36.4 C 74 16 144/76 H 93 08/29/18 07:45 08/29/18 08:09 08/29/18 07:45 08/29/18 08:10 08/29/18 07:45 Laboratory Results 08/27/18 05:38 08/29/18 05:25 08/28/18 08/29/18 08/30/18 05:59 05:59 05:59 Intake Total 865 850 Output Total 4205 1280 Balance -3340 -430 PT 14.0 SEC (12.0-15.0) 08/22/18 05:00 INR 1.12 (0.83-1.16) 08/22/18 05:00 - Physical Exam Constitutional: no apparent distress Eyes: PERRL Ears, Nose, Mouth, Throat: moist mucous membranes Cardiovascular: regular rate and rhythym Respiratory: no respiratory distress, clear to auscultation Gastrointestinal: normoactive bowel sounds, soft, non-tender abdomen, other ( minimal distention, much improved, incision c/d/i, GORGE drain and biliary drain functioning) Skin: warm Musculoskeletal: full muscle strength Neurologic: AAOx3 Psychiatric: interacting appropriately ICD10 Worksheet Patient Problems: Problems Problem Status Onset Abdominal pain Acute
[2018-08-29] MEDS ORDERED: NS 1,000 ML IV SCH (11:30)
[2018-08-29 11:49] LABS: PLATELET COUNT 214 10^3/uL (150-400)
--- NOTE | 2018-08-29 11:59 | SOAPPROG ---
RITA Progress Note Assessment/Plan: Assessment: Cardiology Progress Note Chief Complaint: Abdominal pain Assessment/Plan: Assessment: The patient is a 77 y/o M with a a history of DM and CAD s/p 3v CABG in 2005 admitted with abdominal pain and acute cholecystitis with sepsis. Cards was consulted for a cardiac evaluation prior to a cholecystectomy on 08/18. He is not very active but did play basketball with his grandchildren the other day without angina. He denies any chest pain. His troponin on admission was minimally elevated and has remained flat peaking at .068. His EKG shows anterior Tw inversion. A echo this admission showed preserved LV function with mild LVH and moderate PHTN with RVSP of 60. His last nuclear stress test was in 05/2017 which showed mild inferolateral ischemia which is unchanged from his stress test in 2014 which was done prior to a angiogram. At that time his angiogram showed a patent BRADY to the LAD, and occluded SVG's to the OM1 and OM3 with patent stent in the LCX. He is s/p cholecystectomy which was complicated by common bile duct injury requiring repair on 08/22. He denies any CP or SOB. Plan: 1. CAD with minimally elevated troponin in the setting of sepsis. He has anterior T wave changes but denies any symptoms of angina and his echo showed preserved LV function. Plan for out patient nuclear stress test in 6 weeks and follow up with Dr. Wharton. Continue medical management with Metoprolol and Imdur. Aspirin resumed. Plavix restarted. Brisk diuresis of Lasix yesterday no Lasix needed today will continue to follow. Can use p.r.n. Lasix if need be. Mild orthostasis. Agree with decrease his metoprolol to 12 and have mg p.o. Twice daily. 2. Acute on chronic renal failure- creatinine 1.5 3. Cholecystectomy complicated by common bile duct injury requiring repair. . 5. WCT- no arrhythmias noted Plan:1. no more changes today from wy 08/26/18 11:06 08/27/18 11:36 08/28/18 10:11 08/29/18 11:59 08/29/18 12:00 Subjective: No chest pain or other cardiac issues. Patient has some orthostatic hypotension. Metoprolol is backed off to 12.5 mg p.o. Twice daily Objective: Vital Signs Temp Pulse Resp BP Pulse Ox 36.7 C 63 23 H 130/59 H 95 08/29/18 11:34 08/29/18 11:34 08/29/18 11:34 08/29/18 11:34 08/29/18 11:34 Laboratory Results 08/29/18 11:30 08/29/18 05:25 08/28/18 08/29/18 08/30/18 05:59 05:59 05:59 Intake Total 865 850 Output Total 4205 1280 Balance -3340 -430 PT 14.0 SEC (12.0-15.0) 08/22/18 05:00 INR 1.12 (0.83-1.16) 08/22/18 05:00 Physical Exam - Physical Exam Respiratory: lungs clear Cardiac/Chest: regular rate, rhythm, No edema, No gallop, No JVD ICD10 Worksheet Patient Problems: Problems Problem Status Onset Abdominal pain Acute
[2018-08-29] MEDS ORDERED: IOPAMIDOL (ISOVUE 370) 100 ML BTL IV ONE (14:29)
[2018-08-29] MEDS: traMADol 50 MG TAB PO PRN (15:38)
[2018-08-29] MEDS: MELATONIN 3 MG TAB PO SCH (22:09)
[2018-08-29] MEDS: LATANOPROST 0.005% 2.5 ML OPHT DROPS EACHEYE SCH (22:13)
[2018-08-30] MEDS: GABAPENTIN 300 MG CAP PO SCH ×2 (08:37→22:14)
[2018-08-30] MEDS: ENOXAPARIN 40 MG/0.4 ML SYR SC SCH (08:37)
[2018-08-30] MEDS: CLOPIDOGREL BISULFATE 75 MG TAB PO SCH (08:37)
[2018-08-30] MEDS: METOPROLOL TARTRATE 25 MG TAB PO SCH ×2 (08:37→20:34)
[2018-08-30] MEDS: INSULIN LISPRO 100 UNIT/ML SC SCH ×3 (08:37→17:29)
[2018-08-30] MEDS: PRAMIPEXOLE 0.125 MG TAB PO SCH ×2 (08:37→22:21)
[2018-08-30] MEDS: ALLOPURINOL 100 MG TAB PO SCH (08:38)
[2018-08-30] MEDS: ISOSORBIDE MONONITRATE 30 MG TAB.SR PO SCH (08:38)
[2018-08-30] MEDS: BACITRACIN OINTMENT 1 PACKET TP SCH ×2 (08:38→20:37)
[2018-08-30] MEDS: DOCUSATE SODIUM 100 MG CAP PO SCH ×2 (08:38→20:34)
[2018-08-30] MEDS: CALCIUM CARBONATE 500 MG TAB PO SCH ×2 (08:38→20:35)
[2018-08-30] MEDS: PANTOPRAZOLE SODIUM 40 MG TAB PO SCH ×2 (08:38→20:33)
[2018-08-30] MEDS: SENNOSIDES/DOCUSATE SODIUM TAB PO SCH ×2 (08:38→20:33)
--- NOTE | 2018-08-30 11:24 | SOAPPROG ---
RITA Progress Note Assessment/Plan: Assessment: Cardiology Progress Note Chief Complaint: Abdominal pain Assessment/Plan: Assessment: The patient is a 77 y/o M with a a history of DM and CAD s/p 3v CABG in 2005 admitted with abdominal pain and acute cholecystitis with sepsis. Cards was consulted for a cardiac evaluation prior to a cholecystectomy on 08/18. He is not very active but did play basketball with his grandchildren the other day without angina. He denies any chest pain. His troponin on admission was minimally elevated and has remained flat peaking at .068. His EKG shows anterior Tw inversion. A echo this admission showed preserved LV function with mild LVH and moderate PHTN with RVSP of 60. His last nuclear stress test was in 05/2017 which showed mild inferolateral ischemia which is unchanged from his stress test in 2014 which was done prior to a angiogram. At that time his angiogram showed a patent BRADY to the LAD, and occluded SVG's to the OM1 and OM3 with patent stent in the LCX. He is s/p cholecystectomy which was complicated by common bile duct injury requiring repair on 08/22. He denies any CP or SOB. Plan: 1. CAD with minimally elevated troponin in the setting of sepsis. He has anterior T wave changes but denies any symptoms of angina and his echo showed preserved LV function. Plan for out patient nuclear stress test in 6 weeks and follow up with Dr. Wharton. Continue medical management with Metoprolol and Imdur. Aspirin resumed. Plavix restarted. Brisk diuresis of Lasix yesterday no Lasix needed today will continue to follow. Can use p.r.n. Lasix if need be. Mild orthostasis. Agree with decrease his metoprolol to 12 and have mg p.o. Twice daily. Okay to titrate metoprolol as needed. Increase activity as tolerated 2. Acute on chronic renal failure- creatinine 1.4 3. Cholecystectomy complicated by common bile duct injury requiring repair. . 5. WCT- no arrhythmias noted Plan:1. No changes today. We will follow on an as-needed basis. Call us if any cardiac situations arise. Patient should have follow-up with Dr. 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 08/26/18 11:06 08/27/18 11:36 08/28/18 10:11 08/29/18 11:59 08/29/18 12:00 08/30/18 11:22 Subjective: Patient continues to improve. No CV complaints stable vital signs of blood pressure. Objective: Vital Signs Temp Pulse Resp BP Pulse Ox 36.7 C 79 24 H 147/83 H 96 08/30/18 08:00 08/30/18 09:10 08/30/18 08:00 08/30/18 08:00 08/30/18 08:00 Laboratory Results 08/29/18 11:30 08/30/18 05:13 08/29/18 08/30/18 08/31/18 05:59 05:59 05:59 Intake Total 850 700 550 Output Total 1280 2000 250 Balance -430 -1300 300 PT 14.0 SEC (12.0-15.0) 08/22/18 05:00 INR 1.12 (0.83-1.16) 08/22/18 05:00 Physical Exam - Physical Exam Respiratory: lungs clear Cardiac/Chest: regular rate, rhythm, No edema, No gallop, No JVD ICD10 Worksheet Patient Problems: Problems Problem Status Onset Abdominal pain Acute
--- NOTE | 2018-08-30 12:26 | ASMTCMCOM ---
CM Note CM Note Notes: Spoke with Kassandra from [facility] and they will take a Billary drain. Kassandra states they can also do an admit on Sunday if needed. Currently, the plan is for patient to discharge tomorrow to [facility] for SNF rehab. CM following. Date Signed: 08/30/2018 12:25 PM Electronically Signed By:Brie Kan LCSW
[2018-08-30] MEDS: traMADol 50 MG TAB PO PRN ×2 (13:49→22:15)
--- NOTE | 2018-08-30 15:01 | HOSPPROG ---
Hospitalist Progress Note Assessment/Plan: 77 yo M pw RUQ pain found to have sepsis and acute cholecystitis s/p difficult open ruiz 08/19 complicated by CBD injury s/p repair with perc drain #Acute on chronic cholecystitis s/p lap -> open cholecystectomy 08/19 complicated by bile duct injury - s/p 10 days zosyn - blood cultures NGTD #CBD injury s/p perc biliary drain 08/22: Bilirubin has trended down to normal. Cholangiogram with small leak, though relatively contained, discussed with surgery. - per surgery, biliary drain will remain in place for 6 weeks, f/u with Dr. Woodall next week - will likely need definitive surgery in several months - GORGE drain to be dc'd by surg prior to dc #Hypoxia and SOB 2/2 atelectasis, poor diaphragmatic excursion in setting of acute abdominal issues, possibly mild volume overload, improved - now on room air - IS at bedside, OOB - symptoms improved after IV Lasix Samia #Acute on chronic dHF - grade 2 diastolic dysfunction on recent echo. BNP 8K, had good response to IV lasix Tues. Appears euvolemic today. #Orthostatic hypotension - one episode 08/29, note recently started on metoprolol 25 mg tid - metoprolol dose decreased and gentle fluids given, hypotension has not recurred - cortisol normal #NSVT: short run 08/25, has not recurred - decreased metoprolol to 12.5 bid from 25 tid due to orthostasis as above #EKATERINA on CKD: Suspect prerenal/ATN, making good urine, Cr near baseline of 1.4 - cont to trend #CAD: 3v CABG in 2005, LCx stent 8-9 years ago. Last cath 2018 showed patent BRADY->LAD, occluded SVG->OM1 and OM3, patent LCx stent - Restarted plavix, resume ASA when cleared by surg - outpatient stress test #Anemia: Post-op and dilutional. No e/o bleeding. S/p 1u PRBC 08/23. B12 ok. Hgb stable - monitor h/h #Sepsis: Physiology resolved. #Chest pain: One episode 08/20. ECG with anterior TWI, repeat stable. Trop peak 0.06 prior to surgery in setting of sepsis. No WMA on echo. - outpt stress test as above #Pulmonary hypertension: RVSP 60mmHg. #DM2: Recent A1c 7.2% - Holding oral meds, continue SSI #QUIANA: Doesn't use cpap #Peripheral neuropathy: On gabapentin. #RLS #Deconditioning: PT/OT recommending SNF VTE ppx: mod-high risk, Lovenox Code: full Diet: regular Dispo: Cont inpatient, PCU, planning for SNF, possibly ready for dc tomorrow Subjective: Pt feels ok today. Slept well. No more SOB or orthopnea. No abdominal pain, distention is better. No N/V. Tolerating po. +BM Objective: Vital Signs Temp Pulse Resp BP Pulse Ox 36.7 C 71 19 119/60 95 08/30/18 12:00 08/30/18 12:00 08/30/18 12:00 08/30/18 12:00 08/30/18 12:00 Laboratory Results 08/29/18 11:30 08/30/18 05:13 08/29/18 08/30/18 08/31/18 05:59 05:59 05:59 Intake Total 141 847 3934 Output Total 1280 2000 700 Balance -430 -1300 400 PT 14.0 SEC (12.0-15.0) 08/22/18 05:00 INR 1.12 (0.83-1.16) 08/22/18 05:00 - Physical Exam Constitutional: no apparent distress Eyes: PERRL Ears, Nose, Mouth, Throat: moist mucous membranes Cardiovascular: regular rate and rhythym Respiratory: no respiratory distress, clear to auscultation Gastrointestinal: other (soft, mild distention, non-tender, no r/r/g, +BS, incision c/d/i, GORGE and biliary drains functioning) Skin: warm Musculoskeletal: full muscle strength Neurologic: AAOx3 Psychiatric: interacting appropriately ICD10 Worksheet Patient Problems: Problems Problem Status Onset Abdominal pain Acute
[2018-08-30] MEDS ORDERED: HYDROmorphONE/DILAUDID 1 MG/ML INJ IVP ONE (16:45)
[2018-08-30] MEDS: LATANOPROST 0.005% 2.5 ML OPHT DROPS EACHEYE SCH (22:15)
[2018-08-30] MEDS: MELATONIN 3 MG TAB PO SCH (22:15)
[2018-08-31] MEDS ORDERED: ASPIRIN EC 81 MG TAB PO SCH (09:00)
--- NOTE | 2018-08-31 09:30 | SOAPPROG ---
RITA Progress Note Assessment/Plan: Assessment: 77 y/o man with following cardiac and medical issues: --DM --CAD s/p CABG x 3V in 2005 --peripheral neuropathy --gallstones s/p cholycystectomy --nephrolithiasis Last cardiac cath 02/21 showed 50% left main lesions, patient BRADY to LAD, 20% RCA lesions and diffusely disease [place] LCX. SVGs to OM1 and OM3 were occluded. He has normal LVEF with moderate pulmonary HTN. He is doing well although BP now up. No signs of angina or pulmonary edema. PLAN: 1)start Amlodipine 2.5mg PO qam. 2)rest of meds without changes. 3)okay to transfer to SNF from cardiac standpoint. 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 Kevin Aponte in five weeks. Thanks. Will sign off. Please call if more cardiac issues. 08/31/18 09:27 Subjective: denies CP, PND, palpitations or near syncope. Short of breath because feels he cannot take a deep enough breath secondary to some abdominal discomfort. No fevers or chills or nausea or vomiting. Objective: Vital Signs Temp Pulse Resp BP Pulse Ox 36.8 C 62 24 H 162/75 H 94 08/31/18 08:00 08/31/18 08:00 08/31/18 08:00 08/31/18 08:00 08/31/18 08:00 Laboratory Results 08/29/18 11:30 08/30/18 05:13 08/30/18 08/31/18 09/01/18 05:59 05:59 05:59 Intake Total 700 1900 Output Total 1999 1825 300 Balance -1300 75 -300 PT 14.0 SEC (12.0-15.0) 08/22/18 05:00 INR 1.12 (0.83-1.16) 08/22/18 05:00 Physical Exam - Physical Exam General Appearance: alert EENT: normal ENT inspection Neck: non-tender Respiratory: lungs clear Cardiac/Chest: regular rate, rhythm, systolic murmur (1/6 BRIANNA ), No edema, No gallop, No JVD Peripheral Pulses: 2+: carotid (R), carotid (L), femoral (R), femoral (L), dorsalis-pedis (R), dorsalis-pedis (L) Abdomen: non-tender, No guarding, No rebound Skin: warm/dry Extremities: No pedal edema Neuro/Psych: alert ICD10 Worksheet Patient Problems: Problems Problem Status Onset Abdominal pain Acute
[2018-08-31] MEDS: SENNOSIDES/DOCUSATE SODIUM TAB PO SCH (09:55)
[2018-08-31] MEDS: PRAMIPEXOLE 0.125 MG TAB PO SCH (09:56)
[2018-08-31] MEDS: CLOPIDOGREL BISULFATE 75 MG TAB PO SCH (09:56)
[2018-08-31] MEDS: PANTOPRAZOLE SODIUM 40 MG TAB PO SCH (09:57)
[2018-08-31] MEDS: GABAPENTIN 300 MG CAP PO SCH (09:57)
[2018-08-31] MEDS: ALLOPURINOL 100 MG TAB PO SCH (09:57)
[2018-08-31] MEDS: METOPROLOL TARTRATE 25 MG TAB PO SCH (09:58)
[2018-08-31] MEDS: ISOSORBIDE MONONITRATE 30 MG TAB.SR PO SCH (09:58)
[2018-08-31] MEDS: BACITRACIN OINTMENT 1 PACKET TP SCH (09:59)
[2018-08-31] MEDS: DOCUSATE SODIUM 100 MG CAP PO SCH (09:59)
[2018-08-31] MEDS: CALCIUM CARBONATE 500 MG TAB PO SCH (09:59)
[2018-08-31] MEDS: INSULIN LISPRO 100 UNIT/ML SC SCH (09:59)
[2018-08-31] MEDS: ENOXAPARIN 40 MG/0.4 ML SYR SC SCH (10:00)
--- NOTE | 2018-08-31 10:47 | PDIAF ---
- Diagnosis Diagnosis: Acute cholecystitis Code Status: Full Code - Medication Management Discharge Medications: electronically signed and located in the Home Medication List. - Orders Services needed: Registered Nurse, Certified Nursery Helper, Physical Therapy, Occupational Therapy Diet Recommendation: no restrictions on diet Additional Instructions: Your MRI showed an indeterminant lesion in your liver (1.3 cm). It does not look overly suspicious, but you will need further imaging once you are more healed to further follow it. You can do this with your PCP or with Dr. Woodall, your surgeon's, office. You are scheduled for a nuclear stress test on 10/04 at 9AM in [place] You are scheduled to follow up with Dr. Wharton on 10/14 at 9:15 in our [place] office. Please arrive 15 minutes prior to your scheduled appointment time. Keep T-tube with biliary drain secured. Keep area dry. Call to make a follow up appointment with Dr. Woodall next week. We will take your candis out at the time. Call with fever, chills or increased pain. - Follow Up Care Current Providers and Referrals: NONE *PRIMARY CARE P,. [Unknown] - As per Instructions Maxwell Woodall MD [Medical Doctor] -
--- NOTE | 2018-08-31 11:01 | ASMTLACE ---
LACE Length of stay for Answers: 14 days or more current admission Acuity / Level of Answers: Yes Care: Did the patient have an inpatient admission? Comorbidities - select Answers: Coronary Artery Disease all that apply Diabetes (uncontrolled or controlled) # of Emergency department Answers: 1-2 visits in the last 6 months Score: 14 Date Signed: 08/31/2018 11:01 AM Electronically Signed By:Donna Hunter RN
--- NOTE | 2018-08-31 11:19 | GDS ---
[f rep st] DISCHARGE SUMMARY FINAL DIAGNOSES: 1. Acute on chronic cholecystitis. 2. Bile duct injury status post T-tube placement. 3. Hypoxia due to atelectasis. 4. Acute on chronic diastolic congestive heart failure. 5. Orthostatic hypotension. 6. Nonsustained ventricular tachycardia, 1 run. 7. Acute on chronic kidney disease. 8. Coronary artery disease, status post 3-vessel coronary artery bypass graft in 2005. 9. Anemia. 10. Sepsis. 11. Pulmonary hypertension. 12. Diabetes mellitus with recent A1c 7.2, present. 13. Obstructive sleep apnea, not on CPAP. 14. Peripheral neuropathy on gabapentin. 15. Restless legs syndrome. HOSPITAL COURSE: This is a 77-year-old man who presented with abdominal pain. This was found to be acute cholecystitis. He underwent an open cholecystectomy on 08/19/2018 (started as a laparoscopic c onverted open given adhesions). His course was complicated by a common bile duct injury. This was c onfirmed by MRCP as well as the ERCP. He underwent bile duct repair by Dr. Woodall with a T-tube place ment. This was on 08/22/2018. Followup imaging showed delayed extravasation at the T-tube confluenc e. For now, General Surgery would like to continue with T-tube management. He needs to follow up wi Dr. Woodall within 1 week, he may need a followup surgery for definitive management based on his cli nical progress. He has significant cardiovascular disease. He had an episode of chest pain as well as 1 run of nonsu stained ventricular tachycardia. Cardiology has been involved. His last catheterization in 2018 esteban wed an occluded SVG to OM1 and OM3 with patent left circ stent. He has been restarted on aspirin and Plavix. He is scheduled for an outpatient stress test with Cardiology on 10/04, at 9 a.m. He then has a followup with Dr. Wharton on 10/14, at 9:15 in the [place] office. Other cardiac medications o n discharge include metoprolol 12.5 twice daily, Imdur 30 mg daily and atorvastatin. He had a mild d ecompensated diastolic CHF , which improved with a small amount of IV Lasix. For his diabetes, his oral medications have been held while he was here, restarting his glimepiride o n discharge. Recommend holding his metformin for now. Given his kidney injury. His baseline creatinine is about 1.4, he was at this the day prior to discharge. His creatinine peak ed at 2.0 in the setting of his multiple surgeries. PROCEDURES: 1. Operative repair of common bile duct leak by Dr. Woodall on 08/22/2018. 2. ERCP by Dr. Ling showing full complete cutoff of the common bile duct close to a surgical clip. 3. Cholecystectomy, initially laparoscopic converted to open by Dr. Craig on 08/19/2018. BILLING: I spent more than 30 minutes on the day of discharge coordinating care. FOLLOWUP: 1. Dr. Woodall within 1 week. 2. Cardiology as above. /[id number]/MODL
--- NOTE | 2018-08-31 12:03 | ASMTDCNOTE ---
Case Management Discharge Discharge Order Complete? Answers: Yes Patient to Obtain Answers: Other Notes: [facility] Medications Transportation Arranged Answers: Other Notes: Albino Theodore w/marlene dominguez [facility] Transport will Pick (Date 08/31/2018 12:45 PM & Time) Faxed Final Orders Answers: Yes Family Notified Answers: Yes Discharge Comments Notes: Patient discharged to [facility]. Transport arranged by Kassandra at [facility]. MALLY Cheng to call report. Date Signed: 08/31/2018 12:02 PM Electronically Signed By:Donna Hunter RN
[2018-08-31 12:49] VITALS: BP 130/68
--- NOTE | 2018-08-31 15:38 | SOAPPROG ---
RITA Progress Note Assessment/Plan: Assessment: Assessment/Plan: Assessment/plan: 77 y/o M c cardiac hx involving CABG and coronary stents admitted with acute cholecystitis, cholelithiasis, RUQ pain, elevated LFTs. Fluid responsive sepsis related hypotension. s/p ex laparoscopy, laparotomy with difficult cholecystectomy with Dr. Craig, Now s/p open repair of common bile duct 08/22 Fluoro with small leak Keep T tube in place - essential not to dislodge Will restudy in 4-6 weeks Remove 1/2 candis F/U Dr. Manley in 1 week S: Feeling well. tolerating diet O: Alert Afebrile, VSS RRR CTAB, no increased WOB Abdomen: soft, attp, normoactive BS, incision cdi with candis intact - reaction red by candis, biliary drain in place Plan: 08/31/18 15:32 Objective: Vital Signs Temp Pulse Resp BP Pulse Ox 36.7 C 74 16 130/68 H 95 08/31/18 12:00 08/31/18 12:00 08/31/18 12:00 08/31/18 12:00 08/31/18 12:00 Laboratory Results 08/29/18 11:30 08/30/18 05:13 08/30/18 08/31/18 09/01/18 05:59 05:59 05:59 Intake Total 700 1900 Output Total 1999 1820 300 Balance -1300 75 -300 PT 14.0 SEC (12.0-15.0) 08/22/18 05:00 INR 1.12 (0.83-1.16) 08/22/18 05:00 ICD10 Worksheet Patient Problems: Problems Problem Status Onset Abdominal pain Acute
--- NOTE | 2018-09-05 13:53 | GCON ---
[f rep st] CONSULTATION DATE OF CONSULTATION: 08/21/2018 The patient is a 77-year-old male who underwent a very difficult cholecystectomy by Dr. Craig and he has remained here. This is the second postoperative day. He initially had some sepsis. He also daniel s a cardiac history. He has had increasing bilirubin rise since his surgery, and pain in the right u pper quadrant. He has also had some increased bile drainage in his GORGE drain, although the gallbladde r was thickened, necrotic and opened at surgery with some bile spillage and stone spillage. He was s een earlier today and a HIDA scan was ordered, which shows nonvisualization of the biliary tree and h is bilirubin continues to rise. He is becoming more suspicious for bile leak or common duct injury. LFTs are slightly elevated as well. PAST MEDICAL HISTORY: Includes coronary artery disease, type 2 diabetes, sleep apnea, peripheral ab ropathy, restless legs syndrome, hypertension, hyperlipidemia and gout. He has had a recent open cho lecystectomy. He has been on Plavix and aspirin, but those are on hold. Tonsillectomy, parathyroide ctomy, bilateral knee replacements, coronary artery bypass and coronary stents. He also had a colono scopy 1 year ago. FAMILY HISTORY: Noncontributory. REVIEW OF SYSTEMS: Reveals no major findings on a 10-point review, except as related to the HPI and past history. SOCIAL HISTORY: Reveals he is and does not smoke. PHYSICAL EXAMINATION: GENERAL: An alert cooperative 77-year-old male in no acute distress. VITAL SIGNS: He is afebrile. HEENT: Slight icterus. There are no oral lesions. Pupils are equal and reactive. NECK: Supple with full range of motion. No bruits and no adenopathy and no thyromegaly. CHEST: Clear bilaterally with symmetric breath sounds. CARDIAC: Regular rhythm with slight tachycardia. Has a grade 2 murmur. ABDOMEN: Soft he is tender over the right upper quadrant where he has a large incision. GORGE drain daniel s bilious drainage. He has decreased bowel sounds and slight distention. GENITALIA: Normal. EXTREMITIES: Full range of motion. Full pulses. NEUROLOGIC: Physiologic and symmetric. PSYCH: Reveals him to be alert, oriented and cooperative. ALLERGIES: None. MEDICATIONS: Lipitor, Plavix, aspirin, gabapentin, glimepiride, metoprolol, allopurinol. IMPRESSION: Status post a very difficult cholecystectomy and now with suspicion of bile duct injury. RECOMMENDATIONS: Would be a Gastroenterology consult for ERCP. If he has a bile duct injury, he wou ld need a quick repair and resolution of that, or a possible transfer to the [facility] for tertiary care if he needs long-term biliary stents. We will contact Gastroenterology for an urgent ERCP. In the meantime, I may get an MRCP as well. The risks and options have been fully discussed. /[id number]/MODL
== END 2018-08-31 12:55 | DRG 853 ==
LOC: OBSVTOIN 18:35 → F3N 19:25 → F2N 08-18 19:30 → F3E 08-20 11:16 → F2N 08-22 21:37
PROVIDERS: ADMIT Internal Medicine; ATTEND Internal Medicine
PROC: 0FT40ZZ Resection of Gallbladder, Open Approach (ICD-10-PCS; principal; 2018-08-19 12:00)
PROC: 0FC44ZZ Extirpation of Matter from Gallbladder, Percutaneous Endoscopic Approach (ICD-10-PCS; principal; 2018-08-19 12:00)
PROC: 0FQ90ZZ Repair Common Bile Duct, Open Approach (ICD-10-PCS; 2018-08-22)
PROC: 0FC98ZZ Extirpation of Matter from Common Bile Duct, Via Natural or Artificial Opening Endoscopic (ICD-10-PCS; 2018-08-22)
DX: A41.9 Sepsis, unspecified organism (principal); K80.67 Calculus of gallbladder and bile duct with acute and chronic cholecystitis with obstruction; I13.0 Hypertensive heart and chronic kidney disease with heart failure and stage 1 through stage 4 chronic kidney disease, or unspecified chronic kidney disease; I50.33 Acute on chronic diastolic (congestive) heart failure; K91.89 Other postprocedural complications and disorders of digestive system; J98.11 Atelectasis; I47.2 Ventricular tachycardia; N17.9 Acute kidney failure, unspecified; Z53.31 Laparoscopic surgical procedure converted to open procedure; K66.0 Peritoneal adhesions (postprocedural) (postinfection); E86.9 Volume depletion, unspecified; G47.33 Obstructive sleep apnea (adult) (pediatric); E11.43 Type 2 diabetes mellitus with diabetic autonomic (poly)neuropathy; I25.10 Atherosclerotic heart disease of native coronary artery without angina pectoris; E78.5 Hyperlipidemia, unspecified; G25.81 Restless legs syndrome; R09.02 Hypoxemia; I95.1 Orthostatic hypotension; D64.9 Anemia, unspecified; I27.20 Pulmonary hypertension, unspecified; N18.9 Chronic kidney disease, unspecified; Z95.1 Presence of aortocoronary bypass graft
CPT/HCPCS: 82607-90; 96374; 97110-GP; 97116-GP; 97162-GP; 97164-GP; 97165-GO; 97168-GO; 97530-GO; 97530-GP; 97535-GO; A9537; J0360; J0694; J1170; J1644; J1650; J1815; J1940; J2060; J2270; J2370; J2405; J2543; J2550; J2704; J3010; P9016; P9041; Q9961; Q9967